=== PATIENT | male | born 1945 | race American Indian/Alaskan Native ===

== ENCOUNTER → 2016-05-18 | Outpatient (CLI) | payer OTHER ==
[~2016-05-18] MED LIST: ASPI-435 PO; FOLI1TAB7 PO; GLC/500 PO; GUAI1TAB7 PO; LISI10TA PO; MAGN400T5 PO; MAGNTAB4 PO; OMEP20CA9 PO; SIMV80TA5 PO; SITA100T3 PO
[2016-05-18 16:51] LABS: BASO % 0.3 %; BASO ABS # 0.02 K/uL (0-0.2); COMPLETE YES; HEMATOCRIT 42.1 % (42-52); IG% 0.2 %; LYMPH % 22.1 %; LYMPH ABS # 1.41 K/uL (1.2-3.4); MEAN CELL VOLUME 85.7 fL (80-100); MEAN CORPUSCULAR HGB CONC 36.1 g/dl (32-36); MEAN PLATELET VOLUME 10.3 fL (7.4-10.4); MONO % 6.4 %; PLATELET COUNT 230 K/uL (130-400); RED BLOOD COUNT 4.91 M/uL (4.7-6.1); WHITE BLOOD COUNT 6.38 K/uL (4.8-10.8)
[2016-05-18 17:00] LABS: ALT/SGPT 36 U/L (12-78); AST/SGOT 27 U/L (15-37); BLOOD UREA NITROGEN 20 mg/dl (7-18); BUN/CREATININE RATIO 7.5 (10-20); CALCIUM 8.7 mg/dl (8.5-10.1); CARBON DIOXIDE 25 mmol/L (21-32); CHLORIDE 99 mmol/L (98-107); GLUCOSE 223 mg/dl (70-99); SODIUM 135 mmol/L (136-145)
[2016-05-18 17:04] LABS: ALB/GLOB RATIO 0.8 (0.9-2); ALKALINE PHOSPHATASE 147 U/L (45-117); FERRITIN 234.3 ng/ml (8.0-388.0)
[2016-05-21 15:36] LABS: AFP TUMOR MARKER SERUM 2.6 NG/ML (<6.1)
--- NOTE | 2016-05-28 11:45 | CODING QUERY MEDICAL NECESSITY ---
CQSUPPORTING DIAGNOSIS NEEDED A supporting diagnosis is required for the test/procedure performed on this patient in order for us to be reimbursed by the patient's insurance. Please provide a supporting diagnosis for the following test/procedure listed below next to the test name along with your signature. *If there is no additional diagnosis for this patient that would support the following test/procedure please document that below next to the test/procedure. Test(s)/Procedure(s) that require a supporting diagnosis: DOS 05/18/16 VITAMIN B12 AL-FETOPROTEIN TEST Provider Signature: Date: Thank you Jena [facility] Once completed, please kindly fax back to [phone] For questions please call [phone]
== END | disposition home or self-care (01) ==
LOC: C.LABPBG 15:02
PROVIDERS: ATTEND Internal Medicine Hematology & Oncology
DX: D63.1 Anemia in chronic kidney disease (principal); D64.89 Other specified anemias; D70.9 Neutropenia, unspecified; N18.3 Chronic kidney disease, stage 3 (moderate); F10.99 Alcohol use, unspecified with unspecified alcohol-induced disorder; D51.8 Other vitamin B12 deficiency anemias

== ENCOUNTER → 2016-05-25 | Outpatient (CLI) | payer OTHER ==
[2016-05-25 13:41] LABS: URINE APPEARANCE CLEAR (CLEAR); URINE BILIRUBIN NEG (NEG); URINE COLOR YELLOW; URINE NITRITE NEG (NEG); URINE SPECIFIC GRAVITY 1.019 (1.000-1.030); UROBILINOGEN NEG (NEG)
[2016-05-25 13:53] LABS: MANUAL MICROSCOPIC REQUIRED? NO; REVIEW REQ? NO
== END | disposition home or self-care (01) ==
LOC: C.LABSPEC 09:51
PROVIDERS: ATTEND Physician Assistant Medical
DX: N40.1 Benign prostatic hyperplasia with lower urinary tract symptoms (principal)

== ENCOUNTER → 2016-06-11 | Outpatient (CLI) | payer OTHER ==
--- NOTE | 2016-06-11 11:48 | DIAGNOSTIC IMAGING REPORT ---
MRI right knee RIGHT LOWER EXT JOINT WITHOUT CLINICAL HISTORY: M17.10 Unilateral primary osteoarthritis, unspecified kneeM25.56 Right pain. X-rays. TECHNIQUE: MRI multi axial acquisition COMPARISON STUDY: None FINDINGS: Considerable degenerative change medial joint compartment. Thinning and considerable articular surface loss of the articular services the medial compartment. Osteochondral defect measuring 7 mm with associated cortical bone loss medial tibial plateau. Moderate substance degenerative change of the medial meniscus. Lateral joint compartment shows minimal degenerative change. Lateral meniscus appears to be intact. Collateral ligaments structures are intact as well. There is mild edema of the medial collateral ligament. Considerable degenerative change patellofemoral joint. Considerable thinning of the articular services with moderate irregularity of the residual articular services. Patellar retinaculum are intact. IMPRESSION: 1. Significant degenerative change medial joint compartment with loss of articular services, 7 mm osteochondral defect the tibial plateau, deterioration of the medial meniscus, and a moderate sprain and reactive edema of the medial collateral ligament. 2. Considerable degenerative change patellofemoral joint. 3. Minimal degenerative changes lateral joint compartment. Electronically signed by: Erickson Zavala M.D. 06/11/2016 11:47 AM Dictated Date/Time: 06/11/2016 11:40 AM
== END | disposition home or self-care (01) ==
LOC: C.MRI 09:42
PROVIDERS: ATTEND Neuromusculoskeletal Medicine & OMM
DX: M17.10 Unilateral primary osteoarthritis, unspecified knee (principal); M25.561 Pain in right knee

== ENCOUNTER → 2016-06-20 | Outpatient (CLI) | payer OTHER | LOC: C.LABPBG 08:40 | PROVIDERS: ATTEND Physician Assistant Medical | DX: N40.1 Benign prostatic hyperplasia with lower urinary tract symptoms (principal) ==

== ENCOUNTER → 2017-04-23 | Outpatient (CLI) | payer OTHER ==
[~2017-04-23] MED LIST changes: -FOLI1TAB7 PO; +FOLI1TAB8 PO
[2017-04-23 13:25] LABS: BASO % 0.3 %; BASO ABS # 0.02 K/uL (0-0.2); EOS % 1.8 %; EOS ABS # 0.13 K/uL (0-0.5); HEMATOCRIT 44.2 % (42-52); HEMOGLOBIN 15.3 g/dL (14.0-18.0); IG# 0.02 K/uL (0.00-0.02); LYMPH % 17.9 %; LYMPH ABS # 1.28 K/uL (1.2-3.4); MEAN CELL VOLUME 93.4 fL (80-100); MEAN CORPUSCULAR HEMOGLOBIN 32.3 pg (25-34); MEAN CORPUSCULAR HGB CONC 34.6 g/dl (32-36); MEAN PLATELET VOLUME 9.6 fL (7.4-10.4); MONO % 7.7 %; MONO ABS # 0.55 K/uL (0.11-0.59); NEUT ABS # 5.15 K/uL (1.4-6.5); PLATELET COUNT 230 K/uL (130-400); RED CELL DISTRIBUTION WIDTH CV 12.3 % (11.5-14.5); RED CELL DISTRIBUTION WIDTH SD 41.8 fL (36.4-46.3); WHITE BLOOD COUNT 7.15 K/uL (4.8-10.8)
[2017-04-23 14:09] LABS: ALBUMIN 3.2 gm/dl (3.4-5.0); ALT/SGPT 29 U/L (12-78); AST/SGOT 33 U/L (15-37); BLOOD UREA NITROGEN 13 mg/dl (7-18); CALCIUM 9.1 mg/dl (8.5-10.1); CARBON DIOXIDE 24 mmol/L (21-32); CHOLESTEROL 199 mg/dl (0-200); CREATININE 2.16 mg/dl (0.60-1.40); GLUCOSE 151 mg/dl (70-99); SODIUM 133 mmol/L (136-145)
[2017-04-23 14:12] LABS: HEMOGLOBIN A1C 6.4 % (4.5-5.6)
[2017-04-23 14:27] LABS: ALKALINE PHOSPHATASE 120 U/L (45-117); LDL CHOLESTEROL CALCULATED 98 mg/dl
== END | disposition home or self-care (01) ==
LOC: C.LABPBG 09:49
PROVIDERS: ATTEND Family Medicine
DX: I12.9 Hypertensive chronic kidney disease with stage 1 through stage 4 chronic kidney disease, or unspecified chronic kidney disease (principal); E78.5 Hyperlipidemia, unspecified; E11.9 Type 2 diabetes mellitus without complications; F32.9 Major depressive disorder, single episode, unspecified; E03.9 Hypothyroidism, unspecified; N18.3 Chronic kidney disease, stage 3 (moderate); K21.9 Gastro-esophageal reflux disease without esophagitis

== ENCOUNTER → 2017-06-17 | Outpatient (CLI) | payer OTHER ==
[2017-06-17 13:13] LABS: BASO % 0.4 %; BASO ABS # 0.03 K/uL (0-0.2); EOS % 1.5 %; HEMATOCRIT 45.2 % (42-52); HEMOGLOBIN 15.7 g/dL (14.0-18.0); IG# 0.01 K/uL (0.00-0.02); LYMPH % 15.8 %; LYMPH ABS # 1.06 K/uL (1.2-3.4); MEAN CELL VOLUME 94.4 fL (80-100); MEAN CORPUSCULAR HEMOGLOBIN 32.8 pg (25-34); MEAN CORPUSCULAR HGB CONC 34.7 g/dl (32-36); MEAN PLATELET VOLUME 9.7 fL (7.4-10.4); MONO % 7.6 %; MONO ABS # 0.51 K/uL (0.11-0.59); NEUT % 74.6 %; NEUT ABS # 5.01 K/uL (1.4-6.5); PLATELET COUNT 229 K/uL (130-400); RED CELL DISTRIBUTION WIDTH CV 12.6 % (11.5-14.5); WHITE BLOOD COUNT 6.72 K/uL (4.8-10.8)
[2017-06-17 13:43] LABS: ALT/SGPT 31 U/L (12-78); AST/SGOT 41 U/L (15-37); BLOOD UREA NITROGEN 7 mg/dl (7-18); CALCIUM 8.6 mg/dl (8.5-10.1); CARBON DIOXIDE 24 mmol/L (21-32); CREATININE 2.18 mg/dl (0.60-1.40); GLUCOSE,FASTING 151 mg/dl (70-99); POTASSIUM 4.4 mmol/L (3.5-5.1); SODIUM 133 mmol/L (136-145); URIC ACID 7.4 mg/dl (2.6-7.2)
[2017-06-17 13:51] LABS: ALKALINE PHOSPHATASE 141 U/L (45-117); CHOLESTEROL 184 mg/dl (0-200); LDL CHOLESTEROL CALCULATED 88 mg/dl; TOTAL PROTEIN 7.8 gm/dl (6.4-8.2)
[2017-06-17 14:07] LABS: HEMOGLOBIN A1C 6.8 % (4.5-5.6)
[2017-06-17 14:43] LABS: CREATININE RANDOM URINE 91.7 mg/dl
== END | disposition home or self-care (01) ==
LOC: C.LABPBG 08:51
PROVIDERS: ATTEND Internal Medicine Nephrology
DX: K70.30 Alcoholic cirrhosis of liver without ascites (principal); N18.3 Chronic kidney disease, stage 3 (moderate); E11.22 Type 2 diabetes mellitus with diabetic chronic kidney disease; I12.9 Hypertensive chronic kidney disease with stage 1 through stage 4 chronic kidney disease, or unspecified chronic kidney disease; D64.9 Anemia, unspecified; E78.5 Hyperlipidemia, unspecified; E55.9 Vitamin D deficiency, unspecified; E03.9 Hypothyroidism, unspecified

== ENCOUNTER 2022-05-02 10:39 | Observation (INO) ==
[2022-05-02] MEDS ORDERED: LIDOCAINE VISCOUS 2% 15 ML UDC MT ONE (11:13)
[2022-05-02] MEDS ORDERED: methylPREDNISolone 125 MG/2 ML VIAL IV STA (11:13)
[2022-05-02] MEDS ORDERED: SODIUM CHLORIDE 0.9% 1000ML 500 ML IV ONE (11:13)
[2022-05-02] MEDS ORDERED: ACETAMINOPHEN 1,000 MG/100 ML VIAL IV STA (11:17)
--- NOTE | 2022-05-02 11:18 | Emergency Department Note ---
Impression & Plan Bullous pemphigoid, Stage 4 chronic kidney disease due to benign hypertension, Acute pain of mouth, Acute hyponatremia ED Provider Note Provider: Matt Noguera MD DATE OF SERVICE: 05/02/2022 CHIEF COMPLAINT: Cough, rash HISTORY OF PRESENT ILLNESS: Patient is a 77-year-old gentleman history of hypertension, CAD, CAD/CHF, and post pemphigoid recent rash following with dermatology presenting here today referred by primary care's office after discussing with him onset of some blood-tinged mucus and fatigue today. Recently restarted prednisone this morning previously completed course of this and doxycycline. No fevers reported. Reports that he has been unable to swallow the prednisone tablet due to blister in his mouth. Did have scrapings with zipper setter chainstitch and diagnosed with bullous pemphigoid. Prescription for prednisone yesterday given but just try to take it today along with a new prescription for methotrexate. Has been having over the past 1 to 2 weeks some ulcerations in the mouth. Has tried Magic mouthwash but does not like the taste and not helping. Limited food and liquid intake due to this oral irritation. Denies shortness of breath. Some blood-tinged quality to sputum at times mainly when he is spitting from his mouth. Has been weak and unsteady at times at home. Diffuse body bullae as well as broken bullae/blisters have been continuing. Has been seen at the [facility] several times by their report as well as by primary care and zipper setter chainstitch. Denies any eye or penile irritation. Denies any significant GI upset. Patient states he is able to swallow and speak but it hurts some. PAST MEDICAL HISTORY: As noted above MEDICATIONS: Reviewed home medications SOCIAL HISTORY: lives at home, non-smoker PHYSICAL EXAM: GENERAL: alert and oriented in no acute distress on stretcher fatigued appearing however Head: normocephalic and atraumatic EYES: No injection, discharge or icterus. PERRL, EOMI. NECK: Trachea midline. Supple. ENT: Mucous membranes pink with some slight ulceration on the posterior oropharynx as well as a approximately 8 mm blood-filled bullae/blister under the right tongue. No tongue elevation. LUNGS: Airway patent. No retractions. Breath sounds clear with good air entry bilaterally. HEART: Regular rate and rhythm. No chest wall tenderness ABDOMEN: Soft and non-tender, without guarding or rebound. SKIN: Patient with some diffuse areas of bullae multiple broken bullae with healing blisters on most the extent of his body. Not a lot of confluent erythema around these or purulence. EXTREMITIES: Scattered bullae and broken blisters/bullae on the lower legs 1+ bilateral lower edema. NEUROLOGICAL: No focal deficits. No aphasia. No facial droop or slurred speech. Patient's laboratory studies and imaging reviewed. Differential includes pneumonia, pulmonary embolism, BRICK OR BLOCK [employer]KER, throat infection, mass, dehydration, hyponatremia, acute renal injury, cellulitis, histamine reaction, SJS/TN, bullous pemphigoid, among others considered. IMPRESSION/MEDICAL DECISION MAKING: Patient seen with outside facility and zipper setter chainstitch as well as a PCP locally and reviewed the available PCP notes. Recent diagnosis of bullous pemphigoid of the last 1 to 2 months. Was on steroid and doxycycline. Now given prescription for methotrexate as well as steroid yesterday went to take today and too painful to swallow the medications. Limit decreased oral intake reported as well. Denies significant shortness of breath or chest discomfort. Lower suspicion for primary pulmonary etiology here. Diffuse rash unfortunately seems consistent with bullous pemphigoid. Not clearly diffusely infected at this point. Given some IV steroids as well as IV fluids initially basic labs obtained. Did receive some IV fluid as well as IV Tylenol and some oral lidocaine. This did help with his symptoms. Blood work does show baseline CKD but some new hyponatremia of 129 like related to his decreased intake. Elevated CRP. No significant leukocytosis. Anemia of 10.4 noted. Negative COVID. Patient somewhat improved on reevaluation. Discussed with allergy and immunology on- call as well as dermatology. Dermatology recommends slow steroid taper and starting his methotrexate. Given his decreased intake and already hyponatremia due to his oral discomfort, discussed further care here at the hospital. DIAGNOSIS: Bullous pemphigoid, oral pain, hyponatremia, decreased oral intake DISPOSITION: Hospitalist will evaluate Patient was agreeable with this plan. Past Med/Surg History Medical History Acute kidney injury Alcoholic cirrhosis Anemia Arthritis Ascites due to alcoholic cirrhosis Boil of groin BPH (benign prostatic hyperplasia) CAD (coronary artery disease) Cardiomyopathy CHF (congestive heart failure) Chronic rhinitis Depression DM (diabetes mellitus) GERD without esophagitis Hearing difficulty of both ears History of GI bleed HTN (hypertension) Hyperlipidemia Hypothyroidism (acquired) Insomnia Low magnesium levels Mild cognitive impairment Neuropathy Peripheral neuropathy Stage 4 chronic kidney disease due to benign hypertension Testicular nodule Vitamin D deficiency Surgical History H/O hand surgery History of back surgery S/P cataract surgery S/P cholecystectomy S/P shoulder surgery Family History Mother Ovarian cancer Denies family history of Prostate cancer Myocardial infarction Breast cancer Colorectal cancer Social History Smoking Status: Former smoker Tobacco Type: Cigarettes Second Hand Exposure: No; Hx Alcohol Use: Yes Alcohol type: hard liquor Alcohol Intake Frequency: 4 or More x per/Week Hx Substance Use: No Preferred Language: Hungarian Communication Ability: Effective Visual Impairment: No Limitations Hearing Ability: Use of Hearing Aid Tier Over Required: No Beliefs That Will Affect Care: None marital status: Current Living Situation: Spouse current occupational status: retired Feels Safe at Home: Yes Childhood Exposure to Second-Hand Smoke: Yes Diet Comment: barely eats as per caffeine: No during the past year weight has: remained stable Dental Care, Regularly: No Physical Activity Frequency: Does not Exercise Seatbelt Use: always Sunscreen Use: No Allergies Allergies Allergy/AdvReac Type Severity Reaction Status Date / Time No Known Allergies Allergy Unverified 05/02/22 15:41 Home Meds Home Medications Medication Instructions Recorded Confirmed aspirin 81 mg tablet,delayed 81 mg PO DAILY 04/28/21 05/02/22 release (Meseret Low Dose Aspirin) cyclobenzaprine 10 mg tablet 10 mg PO HS PRN muscle spasm 05/31/21 05/02/22 magnesium oxide 420 mg tablet 420 mg PO DAILY 05/31/21 05/02/22 metoprolol tartrate 25 mg tablet 25 mg PO DAILY 03/21/22 05/02/22 simvastatin 10 mg tablet 5 mg PO QPM 03/21/22 05/02/22 folic acid 1 mg tablet 1 mg PO DAILY 05/02/22 05/02/22 mecobalamin (vitamin B12) 1,000 0 mcg PO DAILY 02/22/23 02/22/23 mcg chewable tablet (B12 Active) methotrexate sodium 2.5 mg tablet 12.5 mg PO WK 05/02/22 05/02/22 Previous Rx's Medication Instructions Recorded blood sugar diagnostic (OneTouch #10 ea 08/11/18 Ultra Blue Test Strip) blood-glucose meter (OneTouch #1 ea 08/11/18 Ultra2 Meter kit) finasteride 5 mg tablet 5 mg PO DAILY #90 tabs 08/11/18 lancets (OneTouch UltraSoft #50 ea 08/11/18 Lancets) mirtazapine 15 mg tablet 15 mg PO DAILY #30 tabs 08/11/18 tamsulosin 0.4 mg capsule 0.4 mg PO DAILY #30 caps 12/29/20 psyllium husk 0.52 gram capsule 0.52 g PO DAILY #30 caps 06/02/21 (Daily Fiber) levothyroxine 75 mcg tablet 75 mcg PO DAILY #30 tabs 07/31/21 triamcinolone acetonide 0.1 % 1 applic topical DAILY PRN itching 11/09/21 topical cream #80 grams guaifenesin 400 mg tablet 400 mg PO BID PRN cough #30 tabs 11/10/21 betamethasone dipropionate 0.05 % 1 applic topical BID PRN skin 11/21/21 topical cream irritation #45 grams linagliptin 5 mg tablet (Tradjenta) 5 mg PO DAILY #90 tabs 11/21/21 spironolactone 25 mg tablet 25 mg PO DAILY #90 tabs 12/05/21 levocetirizine 5 mg tablet 5 mg PO DAILY #90 tabs 02/09/22 nystatin 100,000 unit/gram topical 1 applic topical BID #30 grams 03/21/22 ointment potassium chloride 20 mEq 20 meq PO DAILY #30 tabs 03/22/22 tablet,extended release furosemide 20 mg tablet 20 mg PO DAILY #90 tabs 04/18/22 calamine 3 %-zinc oxide 3 %-gauze #2 ea 04/20/22 bandage 4" X 10 yard (Unna Boot Zinc-Calamine) pantoprazole 40 mg tablet,delayed 40 mg PO BID #180 tabs 05/01/22 release Results & Data (ED) Vital Signs Vital Signs - 24 hr 05/02/22 10:42 05/02/22 12:41 05/02/22 14:30 Temperature 36.6 C Temperature Source Temporal Artery Scan Pulse Rate 122 H Pulse Rate [Finger] 103 H 97 H Respiratory Rate 18 18 18 Respiratory Effort / Characteristics Non-Labored Spontaneous Non-Labored Respiratory Depth Normal Normal Respiratory Pattern Regular Blood Pressure 105/63 Blood Pressure [Left Arm] 109/58 L 103/56 L Blood Pressure Mean 77 Blood Pressure Mean [Left Arm] 75 71 Blood Pressure Position Sitting Blood Pressure Position [Left Arm] Lying Pulse Oximetry 99 98 98 Oxygen Delivery Method Room Air Room Air Room Air Sepsis Recent Fever Within 48 Hours No Sepsis New/Unexplained Change in Mental Status N/A Sepsis Action Taken by Nursing No Action Required 05/02/22 17:50 05/02/22 17:51 Temperature Temperature Source Pulse Rate 94 H Pulse Rate [Finger] 94 H Respiratory Rate 18 18 Respiratory Effort / Characteristics Non-Labored Respiratory Depth Normal Respiratory Pattern Blood Pressure 105/59 L Blood Pressure [Left Arm] 105/59 L Blood Pressure Mean Blood Pressure Mean [Left Arm] 74 Blood Pressure Position Blood Pressure Position [Left Arm] Pulse Oximetry 96 96 Oxygen Delivery Method Room Air Room Air Sepsis Recent Fever Within 48 Hours Sepsis New/Unexplained Change in Mental Status Sepsis Action Taken by Nursing Laboratory Data 05/02/22 11:09 05/02/22 11:09 Lab Results 05/02/22 05/02/22 05/02/22 Range/Units 11:09 11:09 12:23 WBC 8.66 (4.8-10.8) K/ul RBC 3.29 L (4.70-6.10) M/uL Hgb 10.4 L (14.0-18.0) g/dl Hct 31.3 L (42.0-52.0) % MCV 95.1 (80.0-100.0) fL MCH 31.6 (25.0-34.0) pg MCHC 33.2 (32.0-36.0) g/dL RDW Std Deviation 43.1 (36.4-46.3) fL RDW Coeff of Otto 12.3 (11.5-14.5) % Plt Count 360 (130-400) K/uL MPV 9.0 L (9.4-12.4) fL Immature Gran % (Auto) 1.0 % Neut % (Auto) 81.9 % Lymph % (Auto) 6.4 % [place] % (Auto) 7.9 % Eos % (Auto) 2.5 % Baso % (Auto) 0.3 % Neut # (Auto) 7.09 H (1.40-6.50) K/uL Lymph # (Auto) 0.55 L (1.2-3.4) K/uL [place] # (Auto) 0.68 H (0.11-0.59) K/uL Eos # (Auto) 0.22 (0-0.50) K/uL Baso # (Auto) 0.03 (0-0.2) K/uL Immature Gran # (Auto) 0.09 (0.01-0.20) K/uL Sodium 129 L (136-145) mmol/L Potassium 3.8 (3.5-5.1) mmol/L Chloride 97 L (98-107) mmol/L Carbon Dioxide 22 (21-32) mmol/L Anion Gap 10 (3-11) BUN 12 (6-23) mg/dl Creatinine 2.05 H (0.6-1.4) mg/dl Est Cr Clr Drug Dosing Not Reportable Est GFR ( Amer) 35.2 ml/min Est GFR (Non-Af Amer) 30.3 ml/min BUN/Creatinine Ratio 5.9 L (10-20) Glucose 241 H (70-99(Fasting)) mg/dl Calcium 8.0 L (8.5-10.1) mg/dl Magnesium 1.7 (1.7-2.4) mg/dl Total Bilirubin 1.1 H (0.2-1.0) mg/dl AST 13 (13-39) U/L ALT 11 (7-52) U/L Alkaline Phosphatase 95 (34-104) U/L C-Reactive Protein 8.85 H (0-0.5) mg/dl Total Protein 5.8 L (6.0-8.3) gm/dl Albumin 2.3 L (3.4-5.0) gm/dl Globulin 3.5 (2.5-4.0) gm/dl Albumin/Globulin Ratio 0.7 L (0.9-2) SARS-CoV-2, RNA, NAAT NEGATIVE (NEGATIVE) Administered Medications Discontinued Medications Sodium Chloride (Nss 1000ml) 500 mls @ 999 mls/hr IV .Q31M ONE Stop: 05/02/22 11:43 Last Infusion: 05/02/22 12:37 Dose: 0 mls/hr Documented By: JOSE C Admin: 05/02/22 11:47 Dose: 999 mls/hr Documented By: SOLOMON Acetaminophen (Ofirmev) 1,000 mg in 100 mls @ 400 mls/hr IV NOW STA Stop: 05/02/22 11:31 Last Infusion: 05/02/22 12:37 Dose: 0 mls/hr Documented By: JOSE C Admin: 05/02/22 11:45 Dose: 400 mls/hr Documented By: SOLOMON Lidocaine HCl (Lidocaine Viscous 2% 15 Ml Udc) 15 ml MT NOW ONE Stop: 05/02/22 11:14 Last Admin: 05/02/22 11:46 Dose: 15 ml Documented By: SOLOMON Methylprednisolone (Methylprednisolone 125 Mg/2 Ml Vial) 125 mg IV NOW STA Stop: 05/02/22 11:14 Last Admin: 05/02/22 11:45 Dose: 125 mg Documented By: SOLOMON Imaging Data Radiologist's Impression: Chest X-Ray 05/02/22 11:35 XR chest 1V portable CLINICAL HISTORY: cough TECHNIQUE: Single frontal radiograph of the chest was obtained. Comparison: None available at the time of this dictation. FINDINGS: No lines and tubes are seen. The cardiomediastinal silhouette is normal. The lungs are clear. No evidence of pleural effusion or pneumothorax. IMPRESSION: No acute abnormalities and in particular no evidence of pneumonia. ACT 112: Negative or not required by law. Electronically signed by: Antoine Barraza M.D. 05/02/2022 12:04 PM Discharge Plan Visit Data Chief Complaint: Cough Stated Complaint: SPITTING UP BLOOD ED Provider: Matt Noguera Discharge Problem: Bullous pemphigoid, Stage 4 chronic kidney disease due to benign hypertension, Acute pain of mouth, Acute hyponatremia Patient Disposition: Admitted As Inpatient Discharge Instructions Interventions: ED Discharge Assessment Last Done: 05/02/22 17:51 Forms Stand Alone Forms: My [facility] Prescriptions Prescriptions: No Action finasteride 5 mg tablet 5 mg PO DAILY Qty: 90 3RF mirtazapine 15 mg tablet 15 mg PO DAILY Qty: 30 2RF (DME) OneTouch Ultra Blue Test Strip strip See Dose Instructions .ROUTE .MEDSUPPLY Qty: 10 0RF Dose Instruction: As directed Rx Instructions: As directed (DME) blood-glucose meter [WageWorksTouch Ultra2 Meter] kit See Dose Instructions .ROUTE .MEDSUPPLY Qty: 1 0RF Dose Instruction: As directed Rx Instructions: As directed (DME) lancets [OneTouch UltraSoft Lancets] misc See Dose Instructions .ROUTE .MEDSUPPLY Qty: 50 0RF Dose Instruction: As directed Rx Instructions: As directed psyllium husk [Daily Fiber] 0.52 gram capsule 0.52 g PO DAILY Qty: 30 0RF levothyroxine 75 mcg tablet 75 mcg PO DAILY Qty: 30 2RF triamcinolone acetonide 0.1 % cream 1 applic topical DAILY PRN (Reason: itching) Qty: 80 1RF guaifenesin 400 mg tablet 400 mg PO BID PRN (Reason: cough) Qty: 30 0RF Tradjenta 5 mg tablet 5 mg PO DAILY Qty: 90 1RF betamethasone dipropionate 0.05 % cream 1 applic topical BID PRN (Reason: skin irritation) Qty: 45 3RF levocetirizine 5 mg tablet 5 mg PO DAILY Qty: 90 1RF potassium chloride 20 mEq tablet extended release 20 meq PO DAILY Qty: 30 2RF furosemide 20 mg tablet 20 mg PO DAILY Qty: 90 1RF (DME) Unna Boot Zinc-Calamine 3 %-3 %- 4" X 10 yard bandage See Rx Instructions .Route Qty: 2 11RF Rx Instructions: As directed pantoprazole 40 mg tablet,delayed release (DR/EC) 40 mg PO BID Qty: 180 1RF tamsulosin 0.4 mg capsule 0.4 mg PO DAILY Qty: 30 2RF cyclobenzaprine 10 mg tablet 10 mg PO HS PRN (Reason: muscle spasm) magnesium oxide 420 mg tablet 420 mg PO DAILY metoprolol tartrate 25 mg tablet 25 mg PO DAILY simvastatin 10 mg tablet 5 mg PO QPM nystatin 100,000 unit/gram ointment 1 applic topical BID Qty: 30 2RF aspirin [Meseret Low Dose Aspirin] 81 mg tablet,delayed release (DR/EC) 81 mg PO DAILY spironolactone 25 mg tablet 25 mg PO DAILY Qty: 90 2RF methotrexate sodium 2.5 mg tablet 12.5 mg PO WK Rx Instructions: Not yet started as of 05/02/2021 folic acid 1 mg tablet 1 mg PO DAILY mecobalamin (vitamin B12) [B12 Active] 1,000 mcg Tablet,Chewable 0 mcg PO DAILY Referrals Referrals: Crystal Camejo DO [Primary Care Provider] -
[2022-05-02 11:38] LABS: Basophils # (auto) 0.03 K/uL (0-0.2); Basophils % (auto) 0.3 %; Eosinophils # (auto) 0.22 K/uL (0-0.50); Eosinophils % (auto) 2.5 %; Hematocrit (blood only) 31.3 % (42.0-52.0); Hemoglobin 10.4 g/dl (14.0-18.0); Immature Granulocytes # (auto) 0.09 K/uL (0.01-0.20); Lymphocytes # (auto) 0.55 K/uL (1.2-3.4); Lymphocytes % (auto) 6.4 %; Mean Corpuscular Hemoglobin 31.6 pg (25.0-34.0); Mean Corpuscular Hgb Conc 33.2 g/dL (32.0-36.0); Mean Corpuscular Volume 95.1 fL (80.0-100.0); Monocytes # (auto) 0.68 K/uL (0.11-0.59); Monocytes % (auto) 7.9 %; Neutrophils # (auto) 7.09 K/uL (1.40-6.50); Neutrophils % (auto) 81.9 %; Platelet Count 360 K/uL (130-400); RDW Coefficient of Variation 12.3 % (11.5-14.5); RDW Standard Deviation 43.1 fL (36.4-46.3); Red Blood Count 3.29 M/uL (4.70-6.10); White Blood Count 8.66 K/ul (4.8-10.8)
[2022-05-02 11:54] LABS: Alanine Aminotransferase 11 U/L (7-52); Albumin Globulin Ratio 0.7 (0.9-2); Albumin Level 2.3 gm/dl (3.4-5.0); Alkaline Phosphatase 95 U/L (34-104); Anion Gap 10 (3-11); Aspartate Aminotransferase 13 U/L (13-39); BUN Creatinine Ratio 5.9 (10-20); Bilirubin,Total 1.1 mg/dl (0.2-1.0); Blood Urea Nitrogen 12 mg/dl (6-23); C Reactive Protein 8.85 mg/dl (0-0.5); Carbon Dioxide 22 mmol/L (21-32); Chloride 97 mmol/L (98-107); Est GFR (African American) 35.2 ml/min; Est GFR (Non-African American) 30.3 ml/min; Globulin 3.5 gm/dl (2.5-4.0); Glucose 241 mg/dl (70-99(Fasting)); Magnesium 1.7 mg/dl (1.7-2.4); Potassium 3.8 mmol/L (3.5-5.1); Sodium 129 mmol/L (136-145); Total Protein 5.8 gm/dl (6.0-8.3)
--- NOTE | 2022-05-02 12:05 | XRay Report ---
XR chest 1V portable CLINICAL HISTORY: cough TECHNIQUE: Single frontal radiograph of the chest was obtained. Comparison: None available at the time of this dictation. FINDINGS: No lines and tubes are seen. The cardiomediastinal silhouette is normal. The lungs are clear. No evid ence of pleural effusion or pneumothorax. IMPRESSION: No acute abnormalities and in particular no evidence of pneumonia. ACT 112: Negative or not required by law. Electronically signed by: Antoine Barraza M.D. 05/02/2022 12:04 PM
--- NOTE | 2022-05-02 15:01 | History & Physical Report ---
Date of Service May 02, 2022 Assessment & Plan (1) Bullous pemphigoid: Plan: Admission due to poor oral intake with blisters in his mouth and corresponding hyponatremia Solu-medrol 125mg IV given in the ER. Continue this at 60mg IV daily. Switch to PO prednisone when able to take better oral intake. He has had response to prior steroid course although may not have been at high enough dose for long enough. Start outpatient prescribed methotrexate @ 12.5mg PO which he was due to start today. (2) Acute hyponatremia: Plan: Suspect due to poor oral intake + loss from blisters + furosemide use Normal saline @ 80ml/hr overnight x 2L Repeat BMP in AM (3) Oropharyngeal dysphagia: Plan: SLT consult Consider GI consult if not resolving with IV steroids (4) BPH (benign prostatic hyperplasia): Plan: Continue finasteride and tamsulosin (5) GERD without esophagitis: Plan: Continue pantoprazole (6) Hypothyroidism (acquired): Plan: TSH 0.941 in July 2021 Continue levothyroxine 75 mcg PO daily (7) DM (diabetes mellitus): Plan: HbA1C 6.1 in September 2021. Repeat with AM labs. Gi8ven association with bollous pemphigoid consider discontinuation of linagliptin Consult pharmacy for glycemic control in setting of steroid use. (8) Anemia: Plan: At baseline. No inpatient workup required. (9) Peripheral neuropathy: Plan: Continue gabapentin (10) Alcoholic cirrhosis: Plan: Monitor for worsening fluid status with IV fluids as above Due to hyponatremia with dry mucus membranes will currently hold diuretics Plan VTE Prophylaxis - deferred to avoid further SQ injections Diet - T2DM Disposition - admit to med/surg Admission and Anticipated Discharge Date Admission Date: May 02, 2022 History of Present Illness Chief Complaint: Blisters, difficulty eating Primary Care Provider: Crystal Camejo DO Edmaya Rogers is a 77 year old male who presents to the ER due to worsening blister lesions after recently discontinuing second prednisone course. Due to blisters in his mouth he is having problems swallowing food. No problems with food getting stuck but just painful in his mouth. He was recently biopsy confirmed diagnosed with bullous pemphigoid and his outside therapy teacher had planned to start another prednisone course and methotrexate today but due to the difficulty swallowing decided to come to the ER. Initial symptoms began March 21 with an itch and b/l lower extremity swelling - concerned for b/l cellulitis by PCP and started on Keflex. Seen in [facility] with diffuse blistering rash on Mar 29 - noted rash started 3 weeks prior to this and started on hands although patient thinks it started on his b/l lower extremities with me today. He was diagnosed with a non-specific bullous eruption rash and discharged on doxycycline and prednisone on advice of dermatology (Dr William). He reports improvement on this steroid course but lesions never fully healed. Prednisone course 60mg 2days, tapering by 10mg ever 2 days. He did develop some hemoptysis which has been stable since CT chest performed by PCP showing a 1cm nodule in the left upper lobe - recommended PET/CT vs. [address] follow up. He reports the hemoptysis has continued but is no worse. He was follow up by his PCP on Apr 13 and treated with second steroid taper which finished last week. Prednisone 40mg 3 days, 20mg 3 days then 10mg 3 days. Again he reported some improvement but worse since stopping. He was followed up by dermatology and biopsy taken on Apr 16. This recently confirmed bullous pemphigoid and he just picked up new prednisone taper and methotrexate treatment today but is yet to take it. In the ER he was given 125mg Solu-Medrol IV and already feels some improvement when seen. Due to his difficulty swallowing he was referred to medicine for admission and ongoing management of bullous pemphigoid. Allergies Allergy/AdvReac Type Severity Reaction Status Date / Time No Known Allergies Allergy Unverified 05/02/22 15:41 Home Medications Medication Instructions Recorded Confirmed Type blood sugar diagnostic (BashaTouch #10 ea 08/11/18 04/13/22 Rx Ultra Blue Test Strip) blood-glucose meter (BashaTouch #1 ea 08/11/18 04/13/22 Rx Ultra2 Meter kit) finasteride 5 mg tablet 5 mg PO DAILY #90 tabs 08/11/18 05/02/22 Rx lancets (Graphenicsuch UltraSoft #50 ea 08/11/18 04/13/22 Rx Lancets) mirtazapine 15 mg tablet 15 mg PO DAILY #30 tabs 08/11/18 05/02/22 Rx tamsulosin 0.4 mg capsule 0.4 mg PO DAILY #30 caps 12/29/20 05/02/22 Rx aspirin 81 mg tablet,delayed 81 mg PO DAILY 04/28/21 05/02/22 History release (Meseret Low Dose Aspirin) cyclobenzaprine 10 mg tablet 10 mg PO HS PRN muscle spasm 05/31/21 05/02/22 History magnesium oxide 420 mg tablet 420 mg PO DAILY 05/31/21 05/02/22 History psyllium husk 0.52 gram capsule 0.52 g PO DAILY #30 caps 06/02/21 05/02/22 Rx (Daily Fiber) levothyroxine 75 mcg tablet 75 mcg PO DAILY #30 tabs 07/31/21 05/02/22 Rx triamcinolone acetonide 0.1 % 1 applic topical DAILY PRN itching 11/09/21 05/02/22 Rx topical cream #80 grams guaifenesin 400 mg tablet 400 mg PO BID PRN cough #30 tabs 11/10/21 05/02/22 Rx betamethasone dipropionate 0.05 % 1 applic topical BID PRN skin 11/21/21 05/02/22 Rx topical cream irritation #45 grams linagliptin 5 mg tablet (Tradjenta) 5 mg PO DAILY #90 tabs 11/21/21 05/02/22 Rx spironolactone 25 mg tablet 25 mg PO DAILY #90 tabs 12/05/21 05/02/22 Rx levocetirizine 5 mg tablet 5 mg PO DAILY #90 tabs 02/09/22 05/02/22 Rx metoprolol tartrate 25 mg tablet 25 mg PO DAILY 03/21/22 05/02/22 History nystatin 100,000 unit/gram topical 1 applic topical BID #30 grams 03/21/22 05/02/22 Rx ointment simvastatin 10 mg tablet 5 mg PO QPM 03/21/22 05/02/22 History potassium chloride 20 mEq 20 meq PO DAILY #30 tabs 03/22/22 05/02/22 Rx tablet,extended release furosemide 20 mg tablet 20 mg PO DAILY #90 tabs 04/18/22 05/02/22 Rx calamine 3 %-zinc oxide 3 %-gauze #2 ea 04/20/22 Rx bandage 4" X 10 yard (Unna Boot Zinc-Calamine) pantoprazole 40 mg tablet,delayed 40 mg PO BID #180 tabs 05/01/22 05/02/22 Rx release folic acid 1 mg tablet 1 mg PO DAILY 05/02/22 05/02/22 History mecobalamin (vitamin B12) 1,000 0 mcg PO DAILY 05/02/22 05/02/22 History mcg chewable tablet (B12 Active) methotrexate sodium 2.5 mg tablet 12.5 mg PO WK 05/02/22 05/02/22 History Past Med/Surg History Medical History Acute kidney injury Alcoholic cirrhosis Anemia Arthritis Ascites due to alcoholic cirrhosis Boil of groin BPH (benign prostatic hyperplasia) CAD (coronary artery disease) Cardiomyopathy CHF (congestive heart failure) Chronic rhinitis Depression DM (diabetes mellitus) GERD without esophagitis Hearing difficulty of both ears History of GI bleed HTN (hypertension) Hyperlipidemia Hypothyroidism (acquired) Insomnia Low magnesium levels Mild cognitive impairment Neuropathy Peripheral neuropathy Stage 4 chronic kidney disease due to benign hypertension Testicular nodule Vitamin D deficiency Surgical History H/O hand surgery History of back surgery S/P cataract surgery S/P cholecystectomy S/P shoulder surgery Family History Mother Ovarian cancer Denies family history of Prostate cancer Myocardial infarction Breast cancer Colorectal cancer Social History Smoking Status: Former smoker Tobacco Type: Cigarettes Cigarettes Per Day: Uncertain of amt.; Second Hand Exposure: No; Do You Dip or Chew Tobacco: No; Tobacco Cessation Education Requested by Patient: No Hx Alcohol Use: Yes Alcohol type: hard liquor Alcohol Intake Frequency: 4 or More x per/Week Hx Substance Use: No Preferred Language: Guatemalan Communication Ability: Effective Visual Impairment: No Limitations Hearing Ability: Use of Hearing Aid Deal Architect Required: No Beliefs That Will Affect Care: None marital status: Current Living Situation: Spouse current occupational status: retired Other Information That Helps Us Care for You: No Feels Safe at Home: Yes Safety Concerns: Feels Safe At This Time Childhood Exposure to Second-Hand Smoke: Yes Diet Comment: barely eats as per caffeine: No during the past year weight has: remained stable Dental Care, Regularly: No Physical Activity Frequency: Does not Exercise Seatbelt Use: always Sunscreen Use: No Assistive Devices: Glasses, Hearing Aid - Bilateral and Scooter/Electric Scooter Review of Systems Review of Systems: All systems reviewed & are unremarkable except as noted in HPI & below Physical Exam Constitutional: well developed; + not well nourished and no acute distress Eyes: PERRL, conjunctivae normal, anicteric sclerae ENMT: blisters on lateral mucus membranes and under tongue without thrush Respiratory: normal respiratory effort, lungs clear to auscultation Cardiovascular: Rate/Rhythm: regular rate and regular rhythm Extremities: + pedal edema (1+ b/l pitting edema) Gastrointestinal (Abdomen): normal bowel sounds, soft, nontender, no hepatosplenomegaly Skin: Extensive blistering of various stages all over all four extremities, trunk, abdomen and back. Mostly healing on arms with overlying sanguineous crust formation. No areas of cellulitis seen. Most active blisters on b/l LE Neurologic: moves all extremities and awake; not confused very hard of hearing Psychiatric: A+Ox3, euthymic affect Results & Data Results & Data ([facility]) Vital Signs (Past 12 Hours) Vital Signs Temp Pulse Pulse Resp BP BP Pulse Ox 05/02/22 14:30 97 H 18 103/56 L 98 05/02/22 12:41 103 H 18 109/58 L 98 05/02/22 10:42 36.6 C 122 H 18 105/63 99 O2 Del Method 05/02/22 14:30 Room Air 05/02/22 12:41 Room Air 05/02/22 10:42 Room Air Laboratory Results Abnormal lab results 05/02/22 05/02/22 05/02/22 Range/Units 11:09 11:09 18:37 RBC 3.29 L (4.70-6.10) M/uL Hgb 10.4 L (14.0-18.0) g/dl Hct 31.3 L (42.0-52.0) % MPV 9.0 L (9.4-12.4) fL Neut # (Auto) 7.09 H (1.40-6.50) K/uL Lymph # (Auto) 0.55 L (1.2-3.4) K/uL [place] # (Auto) 0.68 H (0.11-0.59) K/uL Sodium 129 L (136-145) mmol/L Chloride 97 L (98-107) mmol/L Creatinine 2.05 H (0.6-1.4) mg/dl BUN/Creatinine Ratio 5.9 L (10-20) Glucose 241 H (70-99(Fasting)) mg/dl POC Glucose 253 H (70-99) mg/dl Calcium 8.0 L (8.5-10.1) mg/dl Total Bilirubin 1.1 H (0.2-1.0) mg/dl C-Reactive Protein 8.85 H (0-0.5) mg/dl Total Protein 5.8 L (6.0-8.3) gm/dl Albumin 2.3 L (3.4-5.0) gm/dl Albumin/Globulin Ratio 0.7 L (0.9-2) 05/02/22 05/03/22 05/03/22 Range/Units 20:39 00:27 04:28 RBC (4.70-6.10) M/uL Hgb (14.0-18.0) g/dl Hct (42.0-52.0) % MPV (9.4-12.4) fL Neut # (Auto) (1.40-6.50) K/uL Lymph # (Auto) (1.2-3.4) K/uL [place] # (Auto) (0.11-0.59) K/uL Sodium (136-145) mmol/L Chloride (98-107) mmol/L Creatinine (0.6-1.4) mg/dl BUN/Creatinine Ratio (10-20) Glucose (70-99(Fasting)) mg/dl POC Glucose 292 H 287 H 148 H (70-99) mg/dl Calcium (8.5-10.1) mg/dl Total Bilirubin (0.2-1.0) mg/dl C-Reactive Protein (0-0.5) mg/dl Total Protein (6.0-8.3) gm/dl Albumin (3.4-5.0) gm/dl Albumin/Globulin Ratio (0.9-2) Diagnostic Findings XR chest 1V portable CLINICAL HISTORY: cough TECHNIQUE: Single frontal radiograph of the chest was obtained. Comparison: None available at the time of this dictation. FINDINGS: No lines and tubes are seen. The cardiomediastinal silhouette is normal. The lungs are clear. No evidence of pleural effusion or pneumothorax. IMPRESSION: No acute abnormalities and in particular no evidence of pneumonia. Medications Administered ER Medications Given: Normal Saline 500ml bolus Solu-medrol 125mg IV Lidocaine 15ml MT Acetaminophen 1000mg IV Code Status & VTE Plan Code Status Full VTE Prophylaxis Plan VTE Prophylaxis will be ordered: No PG Care Time/CCT Total # of Minutes Spent Total Time Spent with Patient: Total time spent is greater than 50% in coordination of care (as documented) at patient's floor/unit and/or counseling patient: Coding Level of Care Code 75755 INT INP/OBS CARE 375MIN Diagnoses Bullous pemphigoid L12.0 Acute hyponatremia E87.1 Oropharyngeal dysphagia R13.12 BPH (benign prostatic hyperplasia) N40.0 GERD without esophagitis K21.9 Hypothyroidism (acquired) E03.9 DM (diabetes mellitus) E11.9 Anemia D64.9 Peripheral neuropathy G62.9 Alcoholic cirrhosis K70.30
[2022-05-02] MEDS ORDERED: GLUCOSE 10 TAB/TUBE PO PRN (19:08)
[2022-05-02] MEDS ORDERED: NON-FORMULARY MEDICATION (Linagliptin [Tradjenta] 5 mg tablet) PO SCH (19:08)
[2022-05-02] MEDS ORDERED: PHARMACY GLYCEMIC MGMT CONSULT PRN (19:08)
[2022-05-02] MEDS ORDERED: CARBOHYDRATES FOR HYPOGLYCEMIA PO PRN (19:08)
[2022-05-02] MEDS ORDERED: INSULIN ASPART PER UNIT SC SCH ×3 (19:08→21:00)
[2022-05-02] MEDS ORDERED: DEXTROSE 50% 50 ML SYRINGE IV PRN (19:08)
[2022-05-02] MEDS ORDERED: GLUCOSE 40% GEL 15 GM TUBE PO PRN (19:08)
[2022-05-02] MEDS ORDERED: GLUCAGON FOR INJ 1 MG VIAL SQ PRN (19:08)
[2022-05-02] MEDS ORDERED: LANTUS PER UNIT CHARGE SQ ONE (21:00)
[2022-05-02] MEDS ORDERED: metHOTREXate sodium 2.5 MG TAB PO SCH (21:00)
[2022-05-02] MEDS: INSULIN ASPART PER UNIT SC SCH ×2 (21:18→21:27)
[2022-05-02] MEDS: SODIUM CHLORIDE 0.9% 1000ML 1,000 ML IV SCH (21:29)
[2022-05-02] MEDS: PANTOprazole 40 MG TAB PO SCH (21:29)
[2022-05-03] MEDS ORDERED: COUGH DROP (SUGAR FREE) LOZ 24 LOZ/1 BOX BUCCAL PRN (00:33)
[2022-05-03] MEDS ORDERED: CHLORASEPTIC 1.4% SOLN 180 ML BTL MT PRN (00:33)
[2022-05-03] MEDS: INSULIN ASPART PER UNIT SC SCH ×6 (00:48→20:54)
[2022-05-03] MEDS ORDERED: LEVOTHYROXINE SODIUM 75 MCG TABLET PO SCH (06:30)
[2022-05-03 07:28] LABS: Basophils # (auto) 0.01 K/uL (0-0.2); Basophils % (auto) 0.1 %; Hematocrit (blood only) 29.6 % (42.0-52.0); Hemoglobin 10.1 g/dl (14.0-18.0); Immature Granulocytes # (auto) 0.09 K/uL (0.01-0.20); Immature Granulocytes % (auto) 0.8 %; Lymphocytes # (auto) 0.83 K/uL (1.2-3.4); Lymphocytes % (auto) 7.7 %; Mean Corpuscular Hemoglobin 31.7 pg (25.0-34.0); Mean Corpuscular Hgb Conc 34.1 g/dL (32.0-36.0); Mean Corpuscular Volume 92.8 fL (80.0-100.0); Monocytes # (auto) 0.59 K/uL (0.11-0.59); Monocytes % (auto) 5.5 %; Neutrophils # (auto) 9.29 K/uL (1.40-6.50); Neutrophils % (auto) 85.9 %; Platelet Count 369 K/uL (130-400); Red Blood Count 3.19 M/uL (4.70-6.10); White Blood Count 10.81 K/ul (4.8-10.8)
[2022-05-03 07:35] LABS: Estimated Average Glucose 166 mg/dl; Hemoglobin A1C 7.4 % (4.5-5.6)
[2022-05-03 07:45] LABS: BUN Creatinine Ratio 7.6 (10-20); Calcium 8.1 mg/dl (8.5-10.1); Creatinine Clr Calc Pharmacy 33.4 ml/min; Est GFR (African American) 36.9 ml/min; Est GFR (Non-African American) 31.8 ml/min; Potassium 3.8 mmol/L (3.5-5.1)
[2022-05-03] MEDS ORDERED: CETIRIZINE HCL 10 MG TABLET PO SCH ×2 (09:00)
[2022-05-03] MEDS ORDERED: POTASSIUM CHLORIDE CRTAB 20 MEQ TABCR PO SCH (09:00)
[2022-05-03] MEDS ORDERED: TAMSULOSIN HCL 0.4 MG CAP PO SCH (09:00)
[2022-05-03] MEDS ORDERED: MAGNESIUM OXIDE 400 MG TAB PO SCH (09:00)
[2022-05-03] MEDS ORDERED: FINASTERIDE 5 MG TAB PO SCH (09:00)
[2022-05-03] MEDS ORDERED: INSULIN HUMAN NPH SC SCH (09:00)
[2022-05-03] MEDS ORDERED: FOLIC ACID 1 MG TAB PO SCH (09:00)
[2022-05-03] MEDS ORDERED: methylPREDNISolone 125 MG/2 ML VIAL IV SCH (09:00)
[2022-05-03] MEDS ORDERED: MIRTAZAPINE TAB 15 MG TAB PO SCH (09:00)
[2022-05-03] MEDS ORDERED: METOPROLOL SUCC 25MG EXT REL TAB PO SCH (09:00)
[2022-05-03] MEDS: SODIUM CHLORIDE 0.9% 1000ML 1,000 ML IV SCH (09:44)
[2022-05-03] MEDS: methylPREDNISolone 60 MG in SYRINGE 0 ML IV SCH (10:37)
[2022-05-03] MEDS: PANTOprazole 40 MG TAB PO SCH (10:43)
[2022-05-03] MEDS ORDERED: LORazepam 2 MG/1 ML VIAL IV PRN (11:05)
--- NOTE | 2022-05-03 11:20 | Hospitalist Progress Note ---
Date of Service May 03, 2022 Assessment & Plan (1) Bullous pemphigoid: Plan: Spoke directly to patient's sales account specialist, Dr William via the phone. 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 And she agreed with the IV Solumedrol and also the magic mouthwash. She stated when patient is able to take oral medication that Dapsone is a good choice. -Check G6PD to be sure patient is not a rapid metabolizer Admission due to poor oral intake with blisters in his mouth and corresponding hyponatremia Solu-medrol 125mg IV given in the ER. Continue this at 60mg IV daily. Switch to PO Dapsone (per Dermatology) at 50-150mg per day (if G6PD is normal) when able to take better oral intake. He has had response to prior steroid course although may not have been at high enough dose for long enough. Start outpatient prescribed methotrexate @ 12.5mg PO which he was due to start today, BUT patient has refused all his po medications and is spitting his saliva into tissues Awaiting wound evaluation (2) Acute hyponatremia: Plan: Suspect due to poor oral intake + loss from blisters + furosemide use Continue Normal saline @ 80ml/hr until able to adequately eat and hydrate Repeat labs tomorrow (3) Oropharyngeal dysphagia: Plan: SLT consulted Full liquid diet ordered Magic mouth wash ordered to swish and swallow if patient is able to swallow (4) BPH (benign prostatic hyperplasia): Plan: Outpatient finasteride and tamsulosin currently held due to patient not being able to swallow his po medications (5) GERD without esophagitis: Plan: Change pantoprazole to IV BID (6) Hypothyroidism (acquired): Plan: TSH 0.941 in July 2021 Levothyroxine 75 mcg PO daily currently on hold Per pharmacy hold x 3 days and then can give IV (7) DM (diabetes mellitus): Plan: HbA1C 6.1 in September 2021. Repeat with AM labs. Given association with bollous pemphigoid consider discontinuation of linagliptin Pharmacy for glycemic control in setting of steroid use. (8) Anemia: Plan: At baseline. No inpatient workup required.And no evidence of any active bleeding. Patient had a few episodes of hemoptysis (9) Peripheral neuropathy: Plan: Gabapentin on hold, since not taking po medications (10) Alcoholic cirrhosis: Plan: Complete Alcohol abstinence discussed with patient and his Monitor for worsening fluid status with IV fluids as above Due to hyponatremia with dry mucus membranes will currently hold diuretics Also held secondary to not taking po medications Per dermatology also recommended to not restart Furosemide (due to this medication may worsen Pemphigoid) Plan VTE Prophylaxis - deferred to avoid further SQ injections Early ambulation encouraged Diet - T2DM Disposition - admit to med/surg Admission and Anticipated Discharge Date Admission Date: May 02, 2022 Subjective Patient is awake in bed. He is complaining of mouth pain. He has bullous pemphigoid and has been following with Dr William. I spoke with Dr William today via the phone. Patient denies any ocular blake, vision changes or any lesions to his ocular area. 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 She recommended checking a G6PD test to be sure he is not a rapid metabolizer. She also stated sometimes you can use topical treatment orally with a triamcinolone ointment that is placed on a cotton swab and held on the area for 20 minutes. BUt that patient likey is not able to due this at this point secondary to the discomfort. Review of Systems Review of Systems: Patient denies any ocular complaints or changes to his vision, chest pain, SOB, dyspnea, cough bdominal pain or N/V. All ROS are negative unless stated + above. Physical Exam Constitutional: + ill appearing and cooperative; + uncomfortable IGIUGIG with bilateral hearing aids Neck: trachea midline, no thyromegaly Respiratory: normal respiratory effort, lungs clear to auscultation Cardiovascular: Rate/Rhythm: regular rate and regular rhythm Extremities: no calf tenderness and no edema Gastrointestinal (Abdomen): normal bowel sounds, soft, nontender, no hepatosplenomegaly Skin: Multiple pemphigoid lesions upper and lower extremities, some blistered areas and some excoriated and healing areas, no evidence of any cellulitis Psychiatric: Orientation: alert and oriented x 3 Eye Contact: good eye contact Results & Data Results & Data ([facility]) Vital Signs (Past 12 Hours) Vital Signs Temp Pulse Resp BP Pulse Ox O2 Del Method 05/03/22 07:29 36.3 C L 100 H 18 115/71 100 Room Air Laboratory Results Abnormal lab results 05/02/22 05/02/22 05/02/22 Range/Units 11:09 11:09 18:37 WBC (4.8-10.8) K/ul RBC 3.29 L (4.70-6.10) M/uL Hgb 10.4 L (14.0-18.0) g/dl Hct 31.3 L (42.0-52.0) % MPV 9.0 L (9.4-12.4) fL Neut # (Auto) 7.09 H (1.40-6.50) K/uL Lymph # (Auto) 0.55 L (1.2-3.4) K/uL [place]irt # (Auto) 0.68 H (0.11-0.59) K/uL Sodium 129 L (136-145) mmol/L Chloride 97 L (98-107) mmol/L Creatinine 2.05 H (0.6-1.4) mg/dl BUN/Creatinine Ratio 5.9 L (10-20) Glucose 241 H (70-99(Fasting)) mg/dl POC Glucose 253 H (70-99) mg/dl Hemoglobin A1c (4.5-5.6) % Calcium 8.0 L (8.5-10.1) mg/dl Total Bilirubin 1.1 H (0.2-1.0) mg/dl C-Reactive Protein 8.85 H (0-0.5) mg/dl Total Protein 5.8 L (6.0-8.3) gm/dl Albumin 2.3 L (3.4-5.0) gm/dl Albumin/Globulin Ratio 0.7 L (0.9-2) 05/02/22 05/03/22 05/03/22 Range/Units 20:39 00:27 04:28 WBC (4.8-10.8) K/ul RBC (4.70-6.10) M/uL Hgb (14.0-18.0) g/dl Hct (42.0-52.0) % MPV (9.4-12.4) fL Neut # (Auto) (1.40-6.50) K/uL Lymph # (Auto) (1.2-3.4) K/uL [place] # (Auto) (0.11-0.59) K/uL Sodium (136-145) mmol/L Chloride (98-107) mmol/L Creatinine (0.6-1.4) mg/dl BUN/Creatinine Ratio (10-20) Glucose (70-99(Fasting)) mg/dl POC Glucose 292 H 287 H 148 H (70-99) mg/dl Hemoglobin A1c (4.5-5.6) % Calcium (8.5-10.1) mg/dl Total Bilirubin (0.2-1.0) mg/dl C-Reactive Protein (0-0.5) mg/dl Total Protein (6.0-8.3) gm/dl Albumin (3.4-5.0) gm/dl Albumin/Globulin Ratio (0.9-2) 05/03/22 05/03/22 05/03/22 Range/Units 07:02 07:02 07:02 WBC 10.81 H (4.8-10.8) K/ul RBC 3.19 L (4.70-6.10) M/uL Hgb 10.1 L (14.0-18.0) g/dl Hct 29.6 L (42.0-52.0) % MPV 9.0 L (9.4-12.4) fL Neut # (Auto) 9.29 H (1.40-6.50) K/uL Lymph # (Auto) 0.83 L (1.2-3.4) K/uL [place] # (Auto) (0.11-0.59) K/uL Sodium 135 L (136-145) mmol/L Chloride (98-107) mmol/L Creatinine 1.97 H (0.6-1.4) mg/dl BUN/Creatinine Ratio 7.6 L (10-20) Glucose (70-99(Fasting)) mg/dl POC Glucose (70-99) mg/dl Hemoglobin A1c 7.4 H (4.5-5.6) % Calcium 8.1 L (8.5-10.1) mg/dl Total Bilirubin (0.2-1.0) mg/dl C-Reactive Protein (0-0.5) mg/dl Total Protein (6.0-8.3) gm/dl Albumin (3.4-5.0) gm/dl Albumin/Globulin Ratio (0.9-2) Diagnostic Findings Chest X-Ray 05/02/22 11:35 XR chest 1V portable CLINICAL HISTORY: cough TECHNIQUE: Single frontal radiograph of the chest was obtained. Comparison: None available at the time of this dictation. FINDINGS: No lines and tubes are seen. The cardiomediastinal silhouette is normal. The lungs are clear. No evidence of pleural effusion or pneumothorax. IMPRESSION: No acute abnormalities and in particular no evidence of pneumonia. ACT 112: Negative or not required by law. Electronically signed by: Antoine Barraza M.D. 05/02/2022 12:04 PM PG Care Time/CCT Total # of Minutes Spent Total Time Spent with Patient: Total time spent is greater than 50% in coordination of care (as documented) at patient's floor/unit and/or counseling patient: Coding Level of Care Code 96948 SUB INP/OBS CARE 3/50MIN Diagnoses Bullous pemphigoid L12.0 Acute hyponatremia E87.1 Oropharyngeal dysphagia R13.12 BPH (benign prostatic hyperplasia) N40.0 GERD without esophagitis K21.9 Hypothyroidism (acquired) E03.9 DM (diabetes mellitus) E11.9 Anemia D64.9 Peripheral neuropathy G62.9 Alcoholic cirrhosis K70.30
[2022-05-03] MEDS: PANTOprazole 40 MG in SYRINGE 0 ML IV SCH ×2 (11:24→20:47)
[2022-05-03] MEDS: FOLIC ACID 1 MG in SYRINGE 9.8 ML IV SCH (11:25)
--- NOTE | 2022-05-03 12:20 | Pharmacy Report ---
Pharmacy Glycemic Short Note 2 - Date of Service May 03, 2022 - Glycemic Short BSG Results (Last 24 hours): 05/02/22 05/02/22 05/03/22 18:37 20:39 00:27 Glucose POC Glucose 253 H 292 H 287 H 05/03/22 05/03/22 05/03/22 04:28 07:02 08:08 Glucose 91 POC Glucose 148 H 90 05/03/22 12:02 Glucose POC Glucose 89 OUTPATIENT ANTIDIABETIC REGIMEN: * Trajenta 5mg PO Daily * A1c 7.4% 05/03/22 ASSESSMENT: * 77 year old male admitted with Bullous pemphigoid, with blisters in his mouth and poor PO intake, on IV steroids. * Patient had Solu-Medrol 125mg in ER yesterday, resulting in blood sugar of 292mg/d - given Lantus 25 and CF/CR 20/7, euglycemic this morning. * Changed to NPH this morning as Solu-Medrol is only Q24H at this time. * Patient unable to eat/swallow at this time, did give NPH this morning with Solu-Medrol, but will hold until re-evaluated tomorrow, since patient is not eating. PLAN FOR INPATIENT GLYCEMIC CONTROL: * Hold outpatient oral diabetes medications * Basal insulin * NPH 25 units SQ today x1 with Solu-Medrol - further dosing tomorrow * Bolus insulin * NovoLog per scale ACHS or Q6hrs while NPO * Goal Range: Low 110 mg/dL - High 140 mg/dL * Correction Factor: 30 mg/dL/unit * Nutritional / Prandial insulin per carb ratio of 1 unit per 10 grams CHO consumed
[2022-05-03] MEDS: FIRST - Mouthwash BLM 119 ML PO SCH ×3 (14:17→20:44)
[2022-05-03] MEDS ORDERED: diphenhydrAMINE 50 MG/ML VIAL IV PRN (16:07)
[2022-05-04] MEDS: FIRST - Mouthwash BLM 119 ML PO SCH ×7 (00:42→22:21)
[2022-05-04 08:01] LABS: Hematocrit (blood only) 26.7 % (42.0-52.0); Mean Corpuscular Hgb Conc 33.7 g/dL (32.0-36.0); Mean Platelet Volume 8.8 fL (9.4-12.4); Platelet Count 369 K/uL (130-400); RDW Coefficient of Variation 12.5 % (11.5-14.5); RDW Standard Deviation 43.5 fL (36.4-46.3); Red Blood Count 2.81 M/uL (4.70-6.10); White Blood Count 10.83 K/ul (4.8-10.8)
[2022-05-04 08:17] LABS: BUN Creatinine Ratio 9.9 (10-20); Calcium 7.7 mg/dl (8.5-10.1); Creatinine Clr Calc Pharmacy 31.1 ml/min; Est GFR (African American) 33.8 ml/min; Est GFR (Non-African American) 29.1 ml/min; Potassium 3.9 mmol/L (3.5-5.1)
[2022-05-04] MEDS: methylPREDNISolone 60 MG in SYRINGE 0 ML IV SCH (08:38)
[2022-05-04] MEDS: INSULIN ASPART PER UNIT SC SCH ×4 (08:43→20:45)
[2022-05-04] MEDS: PANTOprazole 40 MG in SYRINGE 0 ML IV SCH ×2 (08:43→20:45)
[2022-05-04] MEDS ORDERED: SODIUM CHLORIDE 0.9% 500 ML IV SCH (08:45)
[2022-05-04] MEDS: FOLIC ACID 1 MG in SYRINGE 9.8 ML IV SCH (09:03)
--- NOTE | 2022-05-04 09:16 | Hospitalist Progress Note ---
Date of Service May 04, 2022 Assessment & Plan (1) Bullous pemphigoid: Plan: Spoke directly to patient's segregator, Dr William via the phone. 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 And she agreed with the IV Solumedrol and also the magic mouthwash. She stated when patient is able to take oral medication that Dapsone is a good choice. -Check G6PD to be sure patient is not a rapid metabolizer Admission due to poor oral intake with blisters in his mouth and corresponding hyponatremia Solu-medrol 125mg IV given in the ER. Continue this at 60mg IV daily. Switch to PO Dapsone (per Dermatology) at 50-150mg per day (if G6PD is normal) when able to take better oral intake. He has had response to prior steroid course although may not have been at high enough dose for long enough. Start outpatient prescribed methotrexate @ 12.5mg PO which he was due to start 05/03/22 BUT patient has refused all his po medications and is spitting his saliva into tissues Wound evaluated and left recommendations I have been speaking with Dr William via the phone daily. She instructed if he was able to swallow pills today to try the methotrexate. Patient already had the folic acid today, so will plan to take the methotrexate tomorrow 05/05/22. I placed the Folic Acid on hold for tomorrow. He is to take the 12.5mg of methotrexate one time weekly and on that day NO folic acid. He is to take the Folic Acid on the other 6 days. He is to follow up at Dr William office next week and also to have CBC and CMP 5 days after the Methotrexate dose. She will plan when to start the Dapsone when she evaluates him. (2) Acute hyponatremia: Plan: Suspect due to poor oral intake + loss from blisters + furosemide use Continue Normal saline @ 80ml/hr until able to adequately eat and hydrate Repeat labs tomorrow (3) Oropharyngeal dysphagia: Plan: SLT consulted Full liquid diet ordered Patient was able to drink some fluids today and also had some wonton soup his brought in. Magic mouth wash ordered to swish and swallow if patient is able to swallow (4) BPH (benign prostatic hyperplasia): Plan: Outpatient finasteride and tamsulosin currently held due to patient not being able to swallow his po medications (5) GERD without esophagitis: Plan: Change pantoprazole to IV BID (6) Hypothyroidism (acquired): Plan: TSH 0.941 in July 2021 Levothyroxine 75 mcg PO daily currently on hold Per pharmacy hold x 3 days and then can give IV Hopefully will be able to swallow the Levothyroxine tomorrow. (7) DM (diabetes mellitus): Plan: HbA1C 6.1 in September 2021. Repeat with AM labs. Given association with bollous pemphigoid consider discontinuation of linagliptin Pharmacy for glycemic control in setting of steroid use. (8) Anemia: Plan: At baseline. No inpatient workup required.And no evidence of any active bleeding. Patient had a few episodes of hemoptysis in the past, none while admitted (9) Peripheral neuropathy: Plan: Gabapentin on hold, since not taking po medications (10) Alcoholic cirrhosis: Plan: Complete Alcohol abstinence discussed with patient and his Monitor for worsening fluid status with IV fluids as above Due to hyponatremia with dry mucus membranes will currently hold diuretics Also held secondary to not taking po medications Per dermatology also recommended to not restart Furosemide (due to this medication may worsen Pemphigoid) Plan VTE Prophylaxis - deferred to avoid further SQ injections Early ambulation encouraged Diet - T2DM Disposition - admit to med/surg Discussed with Dr Everett Admission and Anticipated Discharge Date Admission Date: May 02, 2022 Subjective Patient was awake in bed and stated he felt that his pain in his mouth has slightly improved and he was trying to drink some liquids today. Review of Systems Review of Systems: Patient denies any ocular complaints or changes to his vision, chest pain, SOB, dyspnea, cough, abdominal pain or N/V. All ROS are negative unless stated + above. Physical Exam Constitutional: + ill appearing and cooperative; + uncomfortable Neck: trachea midline, no thyromegaly Respiratory: normal respiratory effort, lungs clear to auscultation Cardiovascular: Rate/Rhythm: regular rate and regular rhythm Extremities: no calf tenderness and no edema Gastrointestinal (Abdomen): normal bowel sounds, soft, nontender, no hepatosplenomegaly Psychiatric: Orientation: alert and oriented x 3 Eye Contact: good eye contact Results & Data Results & Data ([facility]) Vital Signs (Past 12 Hours) Vital Signs Temp Pulse Resp BP Pulse Ox O2 Del Method 05/04/22 07:53 36.8 C 99 H 17 105/66 97 Room Air 05/03/22 22:38 36.6 C 98 H 18 109/58 L 98 Room Air 05/03/22 21:54 Room Air Laboratory Results Abnormal lab results 05/03/22 05/04/22 05/04/22 Range/Units 20:44 07:32 07:32 WBC 10.83 H (4.8-10.8) K/ul RBC 2.81 L (4.70-6.10) M/uL Hgb 9.0 L (14.0-18.0) g/dl Hct 26.7 L (42.0-52.0) % MPV 8.8 L (9.4-12.4) fL Sodium 135 L (136-145) mmol/L Creatinine 2.12 H (0.6-1.4) mg/dl BUN/Creatinine Ratio 9.9 L (10-20) POC Glucose 101 H (70-99) mg/dl Calcium 7.7 L (8.5-10.1) mg/dl PG Care Time/CCT Total # of Minutes Spent Total Time Spent with Patient: Total time spent is greater than 50% in coordination of care (as documented) at patient's floor/unit and/or counseling patient: Coding Level of Care Code 79814 SUB INP/OBS CARE 3/50MIN Diagnoses Bullous pemphigoid L12.0 Acute hyponatremia E87.1 Oropharyngeal dysphagia R13.12 BPH (benign prostatic hyperplasia) N40.0 GERD without esophagitis K21.9 Hypothyroidism (acquired) E03.9 DM (diabetes mellitus) E11.9 Anemia D64.9 Peripheral neuropathy G62.9 Alcoholic cirrhosis K70.30
[2022-05-04] MEDS: SODIUM CHLORIDE 0.9% 1,000 ML IV SCH ×2 (10:35→20:48)
--- NOTE | 2022-05-04 14:17 | Pharmacy Report ---
Pharmacy Glycemic Short Note 2 - Date of Service May 04, 2022 - Glycemic Short BSG Results (Last 24 hours): 05/03/22 05/03/22 05/04/22 17:24 20:44 07:32 Glucose 87 POC Glucose 99 101 H 05/04/22 05/04/22 08:02 12:09 Glucose POC Glucose 77 83 OUTPATIENT ANTIDIABETIC REGIMEN: * Trajenta 5mg PO Daily * A1c 7.4% 05/03/22 ASSESSMENT: 05/04/22 * BSGs yesterday were 56-49-51-101 mg/dL. Patient received 25 units of NPH. * Today's BSGs are 77-83 mg/dL. Patient has received no insulin yet today. * Continue to hold NPH as all BSGs below goal range. Consider resumption of NPH when BSGs > 140 mg/dL consistently. * Continue Novolog. BASELINE * 77 year old male admitted with Bullous pemphigoid, with blisters in his mouth and poor PO intake, on IV steroids. * Patient had Solu-Medrol 125mg in ER yesterday, resulting in blood sugar of 292mg/d - given Lantus 25 and CF/CR 20/7, euglycemic this morning. * Changed to NPH this morning as Solu-Medrol is only Q24H at this time. * Patient unable to eat/swallow at this time, did give NPH this morning with Solu-Medrol, but will hold until re-evaluated tomorrow, since patient is not eating. PLAN FOR INPATIENT GLYCEMIC CONTROL: * Hold outpatient oral diabetes medications * Basal insulin * HOLD due to lower BSGs. * Bolus insulin * NovoLog per scale ACHS or Q6hrs while NPO * Goal Range: Low 110 mg/dL - High 140 mg/dL * Correction Factor: 30 mg/dL/unit * Nutritional / Prandial insulin per carb ratio of 1 unit per 10 grams CHO consumed
[2022-05-05] MEDS: FIRST - Mouthwash BLM 119 ML PO SCH ×4 (03:40→17:03)
[2022-05-05] MEDS: PANTOprazole 40 MG in SYRINGE 0 ML IV SCH (08:04)
[2022-05-05] MEDS: methylPREDNISolone 60 MG in SYRINGE 0 ML IV SCH (08:04)
[2022-05-05 10:02] LABS: Hematocrit (blood only) 29.4 % (42.0-52.0); Hemoglobin 9.5 g/dl (14.0-18.0); Mean Corpuscular Hemoglobin 30.9 pg (25.0-34.0); Mean Corpuscular Hgb Conc 32.3 g/dL (32.0-36.0); Mean Corpuscular Volume 95.8 fL (80.0-100.0); Mean Platelet Volume 8.8 fL (9.4-12.4); Platelet Count 395 K/uL (130-400); RDW Coefficient of Variation 12.7 % (11.5-14.5); RDW Standard Deviation 43.9 fL (36.4-46.3); Red Blood Count 3.07 M/uL (4.70-6.10); White Blood Count 7.89 K/ul (4.8-10.8)
[2022-05-05 10:14] LABS: Calcium 7.6 mg/dl (8.5-10.1); Creatinine Clr Calc Pharmacy 38.3 ml/min; Est GFR (African American) 43.5 ml/min; Est GFR (Non-African American) 37.5 ml/min; Potassium 3.5 mmol/L (3.5-5.1)
[2022-05-05] MEDS: SODIUM CHLORIDE 0.9% 1,000 ML IV SCH (10:22)
[2022-05-05] MEDS: INSULIN ASPART PER UNIT SC SCH ×2 (10:22→12:00)
--- NOTE | 2022-05-05 14:52 | Discharge Summary ---
Date of Service May 05, 2022 Admission HPI Per Admitting Provider Surjit Rogers is a 77 year old male who presents to the ER due to worsening blister lesions after recently discontinuing second prednisone course. Due to blisters in his mouth he is having problems swallowing food. No problems with food getting stuck but just painful in his mouth. He was recently biopsy confirmed diagnosed with bullous pemphigoid and his outside court operations clerk had planned to start another prednisone course and methotrexate today but due to the difficulty swallowing decided to come to the ER. Initial symptoms began March 21 with an itch and b/l lower extremity swelling - concerned for b/l cellulitis by PCP and started on Keflex. Seen in [place] ER with diffuse blistering rash on Mar 29 - noted rash started 3 weeks prior to this and started on hands although patient thinks it started on his b/l lower extremities with me today. He was diagnosed with a non-specific bullous eruption rash and discharged on doxycycline and prednisone on advice of dermatology (Dr William). He reports improvement on this steroid course but lesions never fully healed. Prednisone course 60mg 2days, tapering by 10mg ever 2 days. He did develop some hemoptysis which has been stable since CT chest performed by PCP showing a 1cm nodule in the left upper lobe - recommended PET/CT vs. [address] follow up. He reports the hemoptysis has continued but is no worse. He was follow up by his PCP on Apr 13 and treated with second steroid taper which finished last week. Prednisone 40mg 3 days, 20mg 3 days then 10mg 3 days. Again he reported some improvement but worse since stopping. He was followed up by dermatology and biopsy taken on Apr 16. This recently confirmed bullous pemphigoid and he just picked up new prednisone taper and methotrexate treatment today but is yet to take it. In the ER he was given 125mg Solu-Medrol IV and already feels some improvement when seen. Due to his difficulty swallowing he was referred to medicine for admission and ongoing management of bullous pemphigoid. Admission Exam Per Admitting Provider Constitutional: well developed; + not well nourished and no acute distress Eyes: PERRL, conjunctivae normal, anicteric sclerae ENMT: blisters on lateral mucus membranes and under tongue without thrush Respiratory: normal respiratory effort, lungs clear to auscultation Cardiovascular: Rate/Rhythm: regular rate and regular rhythm Extremities: + pedal edema (1+ b/l pitting edema) Gastrointestinal (Abdomen): normal bowel sounds, soft, nontender, no hepatosplenomegaly Skin: Extensive blistering of various stages all over all four extremities, trunk, abdomen and back. Mostly healing on arms with overlying sanguineous crust formation. No areas of cellulitis seen. Most active blisters on b/l LE Neurologic: moves all extremities and awake; not confused very hard of hearing Psychiatric: A+Ox3, euthymic affect Principal Diagnosis Bullous Pemphigoid Discharge Exam Constitutional WD/WN, vitals as above ENMT external ear and nose normal, oropharynx normal Neck trachea midline, no thyromegaly Respiratory normal respiratory effort, lungs clear to auscultation Cardiovascular RRR, no murmur, no edema Extremities: normal capillary refill; no calf tenderness and no edema Gastrointestinal (Abdomen) normal bowel sounds, soft, nontender, no hepatosplenomegaly Skin Multiple skin lesions with some blistered, some dry and excoriated and some blisters oozing clear serous fluid upper and lower extremities and upper trunk Psychiatric A+Ox3, euthymic affect Discharge Data Allergies Allergy/AdvReac Type Severity Reaction Status Date / Time No Known Allergies Allergy Unverified 05/02/22 15:41 Consultations 05/02/22 14:57 ED Decision to Admit Stat Hospital Course (1) Bullous pemphigoid: Spoke directly to patient's court operations clerk, Dr William via the phone. 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 And she agreed with the IV Solumedrol and also the magic mouthwash. She stated when patient is able to take oral medication that Dapsone is a good choice. -Check G6PD to be sure patient is not a rapid metabolizer G6PD is still pending Admission due to poor oral intake with blisters in his mouth and corresponding hyponatremia Solu-medrol 125mg IV given in the ER. Continue this at 60mg IV daily. Switch to PO Dapsone (per Dermatology) at 50-150mg per day (if G6PD is normal) when able to take better oral intake. He has had response to prior steroid course although may not have been at high enough dose for long enough. Patient was infact given the methotrexate 12.5mg on 05/02/22 in the evening Wound evaluated and left recommendations I have been speaking with Dr William via the phone daily. He is to take the 12.5mg of methotrexate one time weekly and on that day NO folic acid. He is to take the Folic Acid on the other 6 days. He is to follow up at Dr William office next week and also to have CBC and CMP 5 days after the Methotrexate dose. She will plan when to start the Dapsone when she evaluates him. Patient and his and his daughter were all educated on dressing changes and to take the methotrexate every Saturday and NOT to take the Folic acid on Wednesdays. Patient will need a CBC and CMP on SaturdayMay 08 Patient will be discharged today and will need CBC and CMP drawn in 3 days Will need to follow up with Dr William next week Will resume regular home meds (except no Folic acid on Wednesdays when takes the methotrexate) and also resume the prednisone taper rx by dermatology Needs 2nd dose of Methotrexate SaturdayMay 09 (2) Acute hyponatremia: Suspect due to poor oral intake + loss from blisters + furosemide use Continue Normal saline @ 80ml/hr until able to adequately eat and hydrate improved (3) Oropharyngeal dysphagia: SLT consulted Full liquid diet ordered Patient was able to drink some fluids today and also had some wonton soup his brought in. Magic mouth wash ordered to swish and swallow if patient is able to swallow (4) BPH (benign prostatic hyperplasia): Outpatient finasteride and tamsulosin currently held due to patient not being able to swallow his po medications (5) GERD without esophagitis: Change pantoprazole to IV BID while inpatient, and resume po on discharge (6) Hypothyroidism (acquired): TSH 0.941 in July 2021 Levothyroxine 75 mcg PO daily (7) DM (diabetes mellitus): HbA1C 6.1 in September 2021. Repeat with AM labs. Repeat this admission was 7.4 (likely elevate due to recent steroid usage) (8) Anemia: At baseline. No inpatient workup required.And no evidence of any active bleeding. Patient had a few episodes of hemoptysis in the past, none while admitted (9) Peripheral neuropathy: Gabapentin resumed (10) Alcoholic cirrhosis: Complete Alcohol abstinence discussed with patient and his Per dermatology also recommended to not restart Furosemide (due to this medication may worsen Pemphigoid) Plan VTE Prophylaxis - deferred to avoid further SQ injections Early ambulation encouraged Diet - T2DM Disposition - admit to med/surg Discussed with Dr Everett [facility] Attestation I certify that this patient is under my care and that I, or a physicians conservation assistant working with me, had a face to-face encounter that meets the home health [id number] encounter requirements with this patient. The encounter with the patient was in whole, or in part, for the following medi hal condition, which is the primary reason for home health care (list medical condition): Bullous Pemphigoid, weakness, fatigue, unable to swallow I certify that, based on my findings, the following services are medically necessary home health services: My clinical findings support the need for the above services because: PT Assessment for Endurance / Balance / Strength PT Eval for Safety and Mobility PT Eval for Safety, Gait Training, Assistive Devices PT Gait and Balance Training, Strengthening and Safety Safety Skilled Nsg Assessment Skilled Nsg Assessment Surgical Incision / Wound Further, I certify that my clinical findings support that this patient is homebound (i.e. absences from home require considerable and taxing effort and are for medical reasons or tenriism services or infrequently or of short duration when for other reasons) because: Assistance of 1 Person for Ambulation/Activities Supportive Aid - Wheelchair Certification for Home Health Services: Based on the above findings, I certify that this patient is confined to the home and needs intermittent senior living care, physical therapy and/or speech therapy or continues to need occupational therapy. The patient is under my care, and I have initiated the establishment of the plan of care. This patient will be followed by a physician who will periodically review the plan of care. Total Time Total Time Spent Total Time Spent (In Minutes): 45 Discharge Plan Discharge Items Patient Disposition: Home - Home Health Services Reason For Visit: BULLOUS PEMPHIGOID Discharge Diagnosis: bullous pemphigoid Condition on Discharge: Fair Activity: Resume your previous activity Weightbearing: Full weightbearing Non-emergency contact: Primary Care Provider Call non-emergency contact if: you have any medication questions Follow-up/Referrals: Crystal Camejo DO [Primary Care Provider] - Laquita William MD [Outside Practitioners] - Diet: Carb Consistent or DM2 Diet Texture: Mechanical soft (ground) Ambulatory Orders: Complete Blood Count no Diff (Routine) Timeframe: 3 Days Location: Determined by Patient Ordered By: Faiza Celestin Comprehensive Metabolic Panel (Routine) Timeframe: 3 Days Location: Determined by Patient Ordered By: Faiza Hutchinson Attending Provider Instructions: you were admitted with blistered rash and had difficulty swallowing to the same blistered lesions in yor mouth. I spoke with your regular court operations clerk Dr Laquita William who recommended you take the methotrexate 12.5 mg, continue IV steroids. We also used magic mouth wash to help with your mouth pain and held most of your medications until your symptoms improved and you were then able to eat and drink. You will need to take your Methotrexate every Saturday. DO NOT take folic acid on Wednesdays. You will also need to take the prednisone taper medication that you already have at home from dermatology. You will need blood work in [address] operations clerk suggested that your DO NOT take the Furosemide (Lasix) medication while you are having a flare of the bullous pemphigoid. You also will not need the Potassium while off the lasix. Limit sodium in diet and elevate legs when at rest. You also should follow up with in the next week or 2 with your primary care doctor. Also discussed complete alcohol abstinence. You may need to eventually follow with a liver specialist or GI specialist but we will leave that up to your primary care physician to set that up. Pending Studies at Discharge: Yes Studies:: G6PD blood test is pending. This was done to make sure you are not a rapid metabolizer of Dapsone. Which is a form of steroid that may be started by your court operations clerk in the future. Stand-Alone Forms: My [facility] Medications and DC Order Prescriptions: Continued finasteride 5 mg tablet 5 mg PO DAILY Qty: 90 3RF mirtazapine 15 mg tablet 15 mg PO DAILY Qty: 30 2RF (DME) OneTouch Ultra Blue Test Strip strip See Dose Instructions .ROUTE .MEDSUPPLY Qty: 10 0RF Dose Instruction: As directed Rx Instructions: As directed (DME) blood-glucose meter [OneTouch Ultra2 Meter] kit See Dose Instructions .ROUTE .MEDSUPPLY Qty: 1 0RF Dose Instruction: As directed Rx Instructions: As directed (DME) lancets [OneTouch UltraSoft Lancets] misc See Dose Instructions .ROUTE .MEDSUPPLY Qty: 50 0RF Dose Instruction: As directed Rx Instructions: As directed psyllium husk [Daily Fiber] 0.52 gram capsule 0.52 g PO DAILY Qty: 30 0RF levothyroxine 75 mcg tablet 75 mcg PO DAILY Qty: 30 2RF triamcinolone acetonide 0.1 % cream 1 applic topical DAILY PRN (Reason: itching) Qty: 80 1RF guaifenesin 400 mg tablet 400 mg PO BID PRN (Reason: cough) Qty: 30 0RF Tradjenta 5 mg tablet 5 mg PO DAILY Qty: 90 1RF betamethasone dipropionate 0.05 % cream 1 applic topical BID PRN (Reason: skin irritation) Qty: 45 3RF levocetirizine 5 mg tablet 5 mg PO DAILY Qty: 90 1RF (DME) Unna Boot Zinc-Calamine 3 %-3 %- 4" X 10 yard bandage See Rx Instructions .Route Qty: 2 11RF Rx Instructions: As directed pantoprazole 40 mg tablet,delayed release (DR/EC) 40 mg PO BID Qty: 180 1RF tamsulosin 0.4 mg capsule 0.4 mg PO DAILY Qty: 30 2RF cyclobenzaprine 10 mg tablet 10 mg PO HS PRN (Reason: muscle spasm) magnesium oxide 420 mg tablet 420 mg PO DAILY metoprolol tartrate 25 mg tablet 25 mg PO DAILY simvastatin 10 mg tablet 5 mg PO QPM nystatin 100,000 unit/gram ointment 1 applic topical BID Qty: 30 2RF aspirin [Meseret Low Dose Aspirin] 81 mg tablet,delayed release (DR/EC) 81 mg PO DAILY spironolactone 25 mg tablet 25 mg PO DAILY Qty: 90 2RF methotrexate sodium 2.5 mg tablet 12.5 mg PO WK Rx Instructions: Not yet started as of 05/02/2021 folic acid 1 mg tablet 1 mg PO DAILY mecobalamin (vitamin B12) [B12 Active] 1,000 mcg Tablet,Chewable 0 mcg PO DAILY Discontinued potassium chloride 20 mEq tablet extended release 20 meq PO DAILY Qty: 30 2RF furosemide 20 mg tablet 20 mg PO DAILY Qty: 90 1RF Discharge Orders: Discharge Order (Routine); Ordered 05/05/22 Ordered By: Faiza Oro/Other Patient Handouts: Low-Salt Choices, Managing Type 2 Diabetes, Understanding Bullous Pemphigoid, Special Foot Care for Diabetes, ED Low-Salt Diet Admission Data Admit Date/Time: 05/02/22 15:35 Attending Provider: Justen Everett Admit Provider: Seb Kelley Primary Care Provider: Crystal Camejo Other Providers: Seb Kelley ; Terry Fleming [facility] Coding Level of Care Code HOSP INP/OBS DISCH >30 MIN Diagnoses Bullous pemphigoid L12.0 Acute hyponatremia E87.1 Oropharyngeal dysphagia R13.12 BPH (benign prostatic hyperplasia) N40.0 GERD without esophagitis K21.9 Hypothyroidism (acquired) E03.9 DM (diabetes mellitus) E11.9 Anemia D64.9 Peripheral neuropathy G62.9 Alcoholic cirrhosis K70.30
== END 2022-05-05 18:25 | disposition home health service (06) ==
LOC: ED 10:39 → INTOOBSV 15:35 → SUATTDRO 15:35 → 3N 15:35

== ENCOUNTER 2022-05-15 00:10 | Inpatient (IN) ==
[2022-05-15] MEDS ORDERED: SODIUM CHLORIDE 0.9% 1000ML 1,000 ML IV SCH ×2 (00:45→01:00)
[2022-05-15] MEDS ORDERED: SODIUM CHLORIDE 0.9% 500 ML IV SCH (00:45)
--- NOTE | 2022-05-15 00:50 | Emergency Department Note ---
Impression & Plan Neutropenic fever, Bullous pemphigoid, Acute dehydration ED Provider Note CHIEF COMPLAINT: Poor p.o. intake, wounds to the arms and legs HISTORY OF PRESENT ILLNESS: This 77-year-old male patient presents to the emergency department with complaints of poor p.o. intake per family. Patient suffers from bullous pemphigoid and has bleeding wounds to the bilateral arms. He is not able to give a significant history. Much of the history is given per nursing staff and EMS. Family arrived and reports fever last night, decreased p.o. intake. Patient is scheduled to follow-up with ENT due to difficulty swallowing. states he is supposed to have a "scope." REVIEW OF SYSTEMS: A review of systems was performed with positives and pertinent negatives listed in the history of present illness. 10 systems were reviewed and are otherwise negative. ALLERGIES: see below MEDICATIONS: see below PMH: see below SOCIAL HISTORY: see below DDx: Cellulitis, UTI, dehydration, metabolic abnormality, hypo/hyperglycemia, electrolyte disturbance, anemia, hypoxia, cardiac sources, toxicologic, neurologic, as well as other pathologies. PHYSICAL EXAM: Vital signs reviewed. General: Chronically ill-appearing 77-year-old male, in some discomfort HEENT: No scleral icterus, PERRLA, neck supple. Mucous membranes Cardiovascular: Regular rate and rhythm, no extra sounds. Pulmonary: Clear to auscultation bilaterally, normal work of breathing. Abdomen: Soft, nontender, nondistended, positive bowel sounds. Musculoskeletal: Atraumatic, no peripheral edema. Neurologic: Patient awake alert and oriented x 3, speech is clear Skin: Warm, dry, multiple open lesions to the bilateral upper extremities with active oozing of bright red blood. Pressure ulcers noted to the sacrum. EMERGENCY DEPARTMENT COURSE/MDM: This patient was evaluated and appeared to be in chronically and acutely ill. Patient was hydrated with 500 cc of normal saline solution which was repeated a second time. He was receiving 125 mL/h thereafter. Laboratory work was obtained and reveals a neutropenia which is new from his most recent hospitalization. In review of the patient's external medical records, it appears that he has recently started prednisone and methotrexate for his bullous pemphigoid. Patient's states he has difficulty swallowing and therefore his p.o. intake is diminished. It does appear that the patient choked on water at the bedside. Chronic aspiration could be an issue. Nonetheless the patient is noted to have a rectal temperature of 38.8, he was given 1 g of IV acetaminophen and medicated with IV cefepime. Case was discussed with the hospitalist who will evaluate the patient for admission and further management. Patient's family members at the bedside were informed of the findings and plan and agreed. MONITORING: An order for cardiac monitoring was placed and the patient is noted to be in a sinus tachycardia at 150 beats per minute. RADIOLOGY: CXR to my interpretation reveals no evidence of focal lung consolidation or failure. EKG: To my review reveals poor quality baseline for interpretation sinus tachycardia with premature supraventricular complexes 138 bpm right axis deviation. Overall read is significantly affected by artifact. No improvement on repeat attempts. DISPOSITION: Admission Past Med/Surg History Medical History Acute hyponatremia Acute kidney injury Acute pain of mouth Alcoholic cirrhosis Anemia Arthritis Ascites due to alcoholic cirrhosis Boil of groin BPH (benign prostatic hyperplasia) CAD (coronary artery disease) Cardiomyopathy CHF (congestive heart failure) Chronic rhinitis Depression DM (diabetes mellitus) GERD without esophagitis Hearing difficulty of both ears History of GI bleed HTN (hypertension) Hyperlipidemia Hypothyroidism (acquired) Insomnia Low magnesium levels Mild cognitive impairment Neuropathy Oropharyngeal dysphagia Peripheral neuropathy Stage 4 chronic kidney disease due to benign hypertension Testicular nodule Vitamin D deficiency Surgical History H/O hand surgery History of back surgery S/P cataract surgery S/P cholecystectomy S/P shoulder surgery Family History Mother Ovarian cancer Denies family history of Prostate cancer Myocardial infarction Breast cancer Colorectal cancer Social History Smoking Status: Never smoker Tobacco Type: Cigarettes Cigarettes Per Day: Uncertain of amt.; Second Hand Exposure: No; Do You Dip or Chew Tobacco: No; Tobacco Cessation Education Requested by Patient: No Hx Alcohol Use: Yes Alcohol type: beer Alcohol Intake Frequency: 4 or More x per/Week Hx Substance Use: No Preferred Language: Occitan Communication Ability: Impaired Visual Impairment: No Limitations Hearing Ability: Use of Hearing Aid Tool Die Maker Required: No Beliefs That Will Affect Care: None marital status: Current Living Situation: Spouse current occupational status: retired Other Information That Helps Us Care for You: No Feels Safe at Home: Yes Safety Concerns: Feels Safe At This Time Childhood Exposure to Second-Hand Smoke: Yes Diet Comment: barely eats as per caffeine: No during the past year weight has: remained stable Dental Care, Regularly: No Physical Activity Frequency: Does not Exercise Seatbelt Use: always Sunscreen Use: No Assistive Devices: Cane, Hearing Aid - Bilateral and Walker Assistive Devices Comment: motorized wheelchair Allergies Allergies Allergy/AdvReac Type Severity Reaction Status Date / Time No Known Allergies Allergy Unverified 05/11/22 10:58 Home Meds Home Medications Medication Instructions Recorded Confirmed aspirin 81 mg tablet,delayed 81 mg PO DAILY 04/28/21 05/15/22 release (Meseret Low Dose Aspirin) cyclobenzaprine 10 mg tablet 10 mg PO HS PRN muscle spasm 05/31/21 05/15/22 magnesium oxide 420 mg tablet 420 mg PO DAILY 05/31/21 05/15/22 metoprolol tartrate 25 mg tablet 25 mg PO DAILY 03/21/22 05/15/22 simvastatin 10 mg tablet 5 mg PO QPM 03/21/22 05/15/22 folic acid 1 mg tablet 1 mg PO DAILY 05/02/22 05/15/22 mecobalamin (vitamin B12) 1,000 0 mcg PO DAILY 05/02/22 05/15/22 mcg chewable tablet (B12 Active) methotrexate sodium 2.5 mg tablet 12.5 mg PO WK 05/02/22 05/15/22 Previous Rx's Medication Instructions Recorded blood sugar diagnostic (Culture MachineTouch #10 ea 08/11/18 Ultra Blue Test Strip) blood-glucose meter (Culture MachineTouch #1 ea 08/11/18 Ultra2 Meter kit) finasteride 5 mg tablet 5 mg PO DAILY #90 tabs 08/11/18 lancets (Culture MachineTouch UltraSoft #50 ea 08/11/18 Lancets) mirtazapine 15 mg tablet 15 mg PO DAILY #30 tabs 08/11/18 tamsulosin 0.4 mg capsule 0.4 mg PO DAILY #30 caps 12/29/20 psyllium husk 0.52 gram capsule 0.52 g PO DAILY #30 caps 06/02/21 (Daily Fiber) levothyroxine 75 mcg tablet 75 mcg PO DAILY #30 tabs 07/31/21 triamcinolone acetonide 0.1 % 1 applic topical DAILY PRN itching 11/09/21 topical cream #80 grams guaifenesin 400 mg tablet 400 mg PO BID PRN cough #30 tabs 11/10/21 betamethasone dipropionate 0.05 % 1 applic topical BID PRN skin 11/21/21 topical cream irritation #45 grams spironolactone 25 mg tablet 25 mg PO DAILY #90 tabs 12/05/21 levocetirizine 5 mg tablet 5 mg PO DAILY #90 tabs 02/09/22 nystatin 100,000 unit/gram topical 1 applic topical BID #30 grams 03/21/22 ointment calamine 3 %-zinc oxide 3 %-gauze #2 ea 04/20/22 bandage 4" X 10 yard (Unna Boot Zinc-Calamine) pantoprazole 40 mg tablet,delayed 40 mg PO BID #180 tabs 05/01/22 release linagliptin 5 mg tablet (Tradjenta) 5 mg PO DAILY #90 tabs 05/11/22 Results & Data (ED) Vital Signs Vital Signs - 24 hr 05/15/22 00:52 05/15/22 01:00 05/15/22 02:01 Temperature 36.1 C L 38.8 C H Temperature Source Oral Rectal Pulse Rate 140 H Pulse Rate [Right] Respiratory Rate 20 Respiratory Effort / Characteristics Non-Labored Spontaneous Respiratory Depth Normal Blood Pressure 126/69 Blood Pressure [Right Arm] Blood Pressure Mean 88 Blood Pressure Mean [Right Arm] Blood Pressure Position Lying Blood Pressure Position [Right Arm] Pulse Oximetry 95 95 Oxygen Delivery Method Room Air Nasal Cannula Sepsis Recent Fever Within 48 Hours No Sepsis New/Unexplained Change in Mental Status N/A Sepsis Action Taken by Nursing No Action Required 05/15/22 02:24 05/15/22 03:38 05/15/22 04:50 Temperature 37.8 C H Temperature Source Rectal Pulse Rate 126 H Pulse Rate [Right] 141 H 127 H Respiratory Rate 16 20 Respiratory Effort / Characteristics Non-Labored Spontaneous Non-Labored Spontaneous Respiratory Depth Normal Normal Blood Pressure Blood Pressure [Right Arm] 124/64 124/62 Blood Pressure Mean Blood Pressure Mean [Right Arm] 84 82 Blood Pressure Position Blood Pressure Position [Right Arm] Sitting Lying Pulse Oximetry 99 98 Oxygen Delivery Method Room Air Room Air Sepsis Recent Fever Within 48 Hours Sepsis New/Unexplained Change in Mental Status Sepsis Action Taken by Nursing 05/15/22 05:03 Temperature Temperature Source Pulse Rate Pulse Rate [Right] 129 H Respiratory Rate 19 Respiratory Effort / Characteristics Non-Labored Spontaneous Respiratory Depth Normal Blood Pressure Blood Pressure [Right Arm] 125/73 Blood Pressure Mean Blood Pressure Mean [Right Arm] 90 Blood Pressure Position Blood Pressure Position [Right Arm] Lying Pulse Oximetry 99 Oxygen Delivery Method Room Air Sepsis Recent Fever Within 48 Hours Sepsis New/Unexplained Change in Mental Status Sepsis Action Taken by Shelter Medications Current Medication List: was personally reviewed by me Laboratory Data Attestation: I reviewed the patient's lab results. 05/15/22 00:42 05/15/22 00:42 Lab Results 05/15/22 05/15/22 05/15/22 Range/Units 00:42 00:42 00:42 WBC 0.46 L* (4.8-10.8) K/ul RBC 3.11 L (4.70-6.10) M/uL Hgb 9.7 L (14.0-18.0) g/dl Hct 28.8 L (42.0-52.0) % MCV 92.6 (80.0-100.0) fL MCH 31.2 (25.0-34.0) pg MCHC 33.7 (32.0-36.0) g/dL RDW Std Deviation 41.1 (36.4-46.3) fL RDW Coeff of Otto 12.2 (11.5-14.5) % Plt Count 110 L (130-400) K/uL MPV 9.2 L (9.4-12.4) fL Immature Gran % (Auto) Cancelled Neut % (Auto) Cancelled Lymph % (Auto) Cancelled [place] % (Auto) Cancelled Eos % (Auto) Cancelled Baso % (Auto) Cancelled Neut # (Auto) Cancelled Lymph # (Auto) Cancelled [place] # (Auto) Cancelled Eos # (Auto) Cancelled Baso # (Auto) Cancelled Immature Gran # (Auto) Cancelled Absolute Nucleated RBC 0.02 (0-0.12) K/uL Nucleated RBC % (auto) 4.3 % Neutrophils % (Manual) Cancelled Band Neutrophils % Cancelled Lymphocytes % (Manual) Cancelled Prolymphocyte % Cancelled Reactive Lymphs % (Man) Cancelled Monocytes % (Manual) Cancelled Eosinophils % (Manual) Cancelled Basophils % (Manual) Cancelled Metamyelocytes % (Man) Cancelled Myelocytes % (Man) Cancelled Promyelocytes % (Man) Cancelled Blast Cells % (Manual) Cancelled Plasma Cell % (Manual) Cancelled Other Cells % Cancelled Nucleated RBC % Cancelled Neutrophils # (Manual) Cancelled Band Neutrophils # Cancelled Total Absolute Neuts Cancelled Lymphocytes # (Manual) Cancelled Prolymphocyte # Cancelled Reactive Lymphs # Cancelled Total Abs Lymphocytes Cancelled Monocytes # (Manual) Cancelled Eosinophils # (Manual) Cancelled Basophils # (Manual) Cancelled Metamyelocytes # (Man) Cancelled Myelocytes # (Manual) Cancelled Promyelocytes # (Man) Cancelled Blast Cells # (Man) Cancelled Plasma Cell # (Manual) Cancelled Other Cells # Cancelled Nucleated RBCs # (Man) Cancelled Hypersegmented Neuts Cancelled Hyposegmented Neuts Cancelled Hypogranular Neuts Cancelled Large Granular Lymphs Cancelled # Lrg Granular Lymphs Cancelled Hairy Cells Cancelled Smudge Cells Cancelled Toxic Granulation Cancelled Toxic Vacuolation Cancelled Dohle Bodies Cancelled Altaf Rods Cancelled Hypogranular Platelets Cancelled Giant Platelets Cancelled Platelet Satelliting Cancelled RBC Morphology Cancelled Polychromasia Cancelled Hypochromasia Cancelled Poikilocytosis Cancelled Basophilic Stippling Cancelled Anisocytosis Cancelled Microcytosis Cancelled Macrocytosis Cancelled Spherocytes Cancelled Pappenheimer Bodies Cancelled Sickle Cells Cancelled Target Cells Cancelled Tear Drop Cells Cancelled Ovalocytes Cancelled Stomatocytes Cancelled [place] Bodies Cancelled Echinocytes Cancelled Acanthocytes (Spur) Cancelled Rouleaux Cancelled RBC Agglutinates Cancelled Schistocytes Cancelled [place] Cell Cancelled Sodium 130 L (136-145) mmol/L Potassium 4.5 (3.5-5.1) mmol/L Chloride 100 (98-107) mmol/L Carbon Dioxide 22 (21-32) mmol/L Anion Gap 8 (3-11) BUN 21 (6-23) mg/dl Creatinine 1.71 H (0.6-1.4) mg/dl Est Cr Clr Drug Dosing 37.4 ml/min Est GFR ( Amer) 43.8 ml/min Est GFR (Non-Af Amer) 37.8 ml/min BUN/Creatinine Ratio 12.3 (10-20) Glucose 154 H (70-99(Fasting)) mg/dl Lactate 1.5 (0.4-2.0) mmol/L Calcium 7.7 L (8.5-10.1) mg/dl Magnesium 1.8 (1.7-2.4) mg/dl Total Bilirubin 1.2 H (0.2-1.0) mg/dl AST 15 (13-39) U/L ALT 14 (7-52) U/L Alkaline Phosphatase 85 (34-104) U/L Total Creatine Kinase < 10 L (30-223) U/L Troponin I High Sens 21.5 H (0-20) pg/ml Total Protein 5.7 L (6.0-8.3) gm/dl Albumin 2.4 L (3.4-5.0) gm/dl Globulin 3.3 (2.5-4.0) gm/dl Albumin/Globulin Ratio 0.7 L (0.9-2) TSH (0.300-4.500) uIu/ml Urine Color Urine Appearance (Clear) Urine pH (4.5-7.5) Ur Specific [place] (1.000-1.030) Urine Protein (Negative) Urine Glucose (UA) (Negative) Urine Ketones (Negative) Urine Blood (Negative) Urine Nitrite (Negative) Urine Bilirubin (Negative) Urine Urobilinogen (Negative) Ur Leukocyte Esterase (Negative) Urine WBC (Auto) (0-5) /hpf Urine RBC (Auto) (0-4) /hpf U Hyaline Cast (Auto) (0-5) /lpf U Epithel Cells (Auto) (0-5) /lpf Urine Bacteria (Auto) (Negative) Urine Yeast SARS-CoV-2 (PCR) (Negative) Influenza Type A (PCR) (Neg) Influenza Type B (PCR) (Neg) RSV (RT-PCR) (Neg) Blood Parasites ID Cancelled 05/15/22 05/15/22 05/15/22 Range/Units 00:42 00:47 00:50 WBC (4.8-10.8) K/ul RBC (4.70-6.10) M/uL Hgb (14.0-18.0) g/dl Hct (42.0-52.0) % MCV (80.0-100.0) fL MCH (25.0-34.0) pg MCHC (32.0-36.0) g/dL RDW Std Deviation (36.4-46.3) fL RDW Coeff of Otto (11.5-14.5) % Plt Count (130-400) K/uL MPV (9.4-12.4) fL Immature Gran % (Auto) Neut % (Auto) Lymph % (Auto) [place] % (Auto) Eos % (Auto) Baso % (Auto) Neut # (Auto) Lymph # (Auto) [place] # (Auto) Eos # (Auto) Baso # (Auto) Immature Gran # (Auto) Absolute Nucleated RBC (0-0.12) K/uL Nucleated RBC % (auto) % Neutrophils % (Manual) Band Neutrophils % Lymphocytes % (Manual) Prolymphocyte % Reactive Lymphs % (Man) Monocytes % (Manual) Eosinophils % (Manual) Basophils % (Manual) Metamyelocytes % (Man) Myelocytes % (Man) Promyelocytes % (Man) Blast Cells % (Manual) Plasma Cell % (Manual) Other Cells % Nucleated RBC % Neutrophils # (Manual) Band Neutrophils # Total Absolute Neuts Lymphocytes # (Manual) Prolymphocyte # Reactive Lymphs # Total Abs Lymphocytes Monocytes # (Manual) Eosinophils # (Manual) Basophils # (Manual) Metamyelocytes # (Man) Myelocytes # (Manual) Promyelocytes # (Man) Blast Cells # (Man) Plasma Cell # (Manual) Other Cells # Nucleated RBCs # (Man) Hypersegmented Neuts Hyposegmented Neuts Hypogranular Neuts Large Granular Lymphs # Lrg Granular Lymphs Hairy Cells Smudge Cells Toxic Granulation Toxic Vacuolation Dohle Bodies Altaf Rods Hypogranular Platelets Giant Platelets Platelet Satelliting RBC Morphology Polychromasia Hypochromasia Poikilocytosis Basophilic Stippling Anisocytosis Microcytosis Macrocytosis Spherocytes Pappenheimer Bodies Sickle Cells Target Cells Tear Drop Cells Ovalocytes Stomatocytes [place] Bodies Echinocytes Acanthocytes (Spur) Rouleaux RBC Agglutinates Schistocytes [place] Cell Sodium (136-145) mmol/L Potassium (3.5-5.1) mmol/L Chloride (98-107) mmol/L Carbon Dioxide (21-32) mmol/L Anion Gap (3-11) BUN (6-23) mg/dl Creatinine (0.6-1.4) mg/dl Est Cr Clr Drug Dosing ml/min Est GFR ( Amer) ml/min Est GFR (Non-Af Amer) ml/min BUN/Creatinine Ratio (10-20) Glucose (70-99(Fasting)) mg/dl Lactate (0.4-2.0) mmol/L Calcium (8.5-10.1) mg/dl Magnesium (1.7-2.4) mg/dl Total Bilirubin (0.2-1.0) mg/dl AST (13-39) U/L ALT (7-52) U/L Alkaline Phosphatase (34-104) U/L Total Creatine Kinase (30-223) U/L Troponin I High Sens (0-20) pg/ml Total Protein (6.0-8.3) gm/dl Albumin (3.4-5.0) gm/dl Globulin (2.5-4.0) gm/dl Albumin/Globulin Ratio (0.9-2) TSH 1.507 (0.300-4.500) uIu/ml Urine Color Dark Yellow Urine Appearance Clear (Clear) Urine pH 5.0 (4.5-7.5) Ur Specific [place] 1.022 (1.000-1.030) Urine Protein 1+ H (Negative) Urine Glucose (UA) 2+ H (Negative) Urine Ketones Trace H (Negative) Urine Blood Negative (Negative) Urine Nitrite Negative (Negative) Urine Bilirubin Negative (Negative) Urine Urobilinogen Negative (Negative) Ur Leukocyte Esterase Negative (Negative) Urine WBC (Auto) 1-5 (0-5) /hpf Urine RBC (Auto) 0-4 (0-4) /hpf U Hyaline Cast (Auto) 1-5 (0-5) /lpf U Epithel Cells (Auto) >30 H (0-5) /lpf Urine Bacteria (Auto) Negative (Negative) Urine Yeast Not Reportable SARS-CoV-2 (PCR) NEGATIVE (Negative) Influenza Type A (PCR) Negative (Neg) Influenza Type B (PCR) Negative (Neg) RSV (RT-PCR) Negative (Neg) Blood Parasites ID Administered Medications Lactated Ringer's (Lr) 1,000 mls @ 80 mls/hr IV .[id number] CROW Stop: 06/14/22 06:07 Last Admin: 05/15/22 06:32 Dose: 80 mls/hr Documented By: BOONE Discontinued Medications Sodium Chloride (Nss) 500 mls @ 999 mls/hr IV .Q31M CROW Stop: 05/15/22 01:15 Last Infusion: 05/15/22 01:40 Dose: 0 mls/hr Documented By: Admin: 05/15/22 01:05 Dose: 999 mls/hr Documented By: JANA Sodium Chloride (Nss 1000ml) 1,000 mls @ 125 mls/hr IV .Q8H CROW Stop: 06/14/22 00:44 Last Infusion: 05/15/22 06:33 Dose: 0 mls/hr Documented By: Admin: 05/15/22 01:15 Dose: 125 mls/hr Documented By: JANA Sodium Chloride (Nss 1000ml) 1,000 mls @ 150 mls/hr IV .[id number] CROW Stop: 06/14/22 00:59 Last Admin: 05/15/22 01:04 Dose: Not Given Documented By: JANA Cefepime HCl (Maxipime) 2,000 mg in 20 mls @ 5 mls/min IV NOW STA; Protocol Stop: 05/15/22 02:08 Last Admin: 05/15/22 02:17 Dose: 5 mls/min Documented By: JANA Acetaminophen (Ofirmev) 1,000 mg in 100 mls @ 400 mls/hr IV NOW STA Stop: 05/15/22 02:20 Last Infusion: 05/15/22 02:25 Dose: 0 mls/hr Documented By: Admin: 05/15/22 02:10 Dose: 400 mls/hr Documented By: JANA Discharge Plan Visit Data Chief Complaint: Illness Stated Complaint: Constipation, Cough, Wounds ED Provider: Opal Robins Discharge Problem: Neutropenic fever, Bullous pemphigoid, Acute dehydration Patient Disposition: Admitted As Inpatient Discharge Instructions Interventions: ED Discharge Assessment Last Done: 05/15/22 05:50
[2022-05-15 01:12] LABS: Appearance Urine Clear (Clear); Bacteria Urine Automated Negative (Negative); Bilirubin Urine Negative (Negative); Blood Urine Negative (Negative); Color Urine Dark Yellow; Epithelial Cell Urine Auto >30 /lpf (0-5); Glucose Urine UA 2+ (Negative); Ketones Urine Trace (Negative); Leukocyte Esterase Urine Negative (Negative); Nitrite Urine Negative (Negative); Protein Urine 1+ (Negative); RBC Urine Automated 0-4 /hpf (0-4); Specific Gravity Urine 1.022 (1.000-1.030); Urobilinogen Urine Negative (Negative)
[2022-05-15 01:20] LABS: Anion Gap 8 (3-11); BUN Creatinine Ratio 12.3 (10-20); Blood Urea Nitrogen 21 mg/dl (6-23); Calcium 7.7 mg/dl (8.5-10.1); Carbon Dioxide 22 mmol/L (21-32); Chloride 100 mmol/L (98-107); Creatinine Clr Calc Pharmacy 37.4 ml/min; Est GFR (African American) 43.8 ml/min; Est GFR (Non-African American) 37.8 ml/min; Glucose 154 mg/dl (70-99(Fasting)); Potassium 4.5 mmol/L (3.5-5.1); Sodium 130 mmol/L (136-145)
[2022-05-15 01:26] LABS: Troponin I High Sensitivity 21.5 pg/ml (0-20)
[2022-05-15 01:30] LABS: Hematocrit (blood only) 28.8 % (42.0-52.0); Hemoglobin 9.7 g/dl (14.0-18.0); Mean Corpuscular Hemoglobin 31.2 pg (25.0-34.0); Mean Corpuscular Hgb Conc 33.7 g/dL (32.0-36.0); Mean Corpuscular Volume 92.6 fL (80.0-100.0); Mean Platelet Volume 9.2 fL (9.4-12.4); Nucleated RBC # (auto) 0.02 K/uL (0-0.12); Nucleated RBC % (auto) 4.3 %; Platelet Count 110 K/uL (130-400); RDW Coefficient of Variation 12.2 % (11.5-14.5); RDW Standard Deviation 41.1 fL (36.4-46.3); Red Blood Count 3.11 M/uL (4.70-6.10); White Blood Count 0.46 K/ul (4.8-10.8)
[2022-05-15 01:36] LABS: Alanine Aminotransferase 14 U/L (7-52); Albumin Globulin Ratio 0.7 (0.9-2); Albumin Level 2.4 gm/dl (3.4-5.0); Alkaline Phosphatase 85 U/L (34-104); Aspartate Aminotransferase 15 U/L (13-39); Bilirubin,Total 1.2 mg/dl (0.2-1.0); Creatine Kinase < 10 U/L (30-223); Globulin 3.3 gm/dl (2.5-4.0); Magnesium 1.8 mg/dl (1.7-2.4); Total Protein 5.7 gm/dl (6.0-8.3)
[2022-05-15 01:46] LABS: Influenza A virus by PCR Negative (Neg); Influenza B virus by PCR Negative (Neg); RSV by PCR Negative (Neg); SARS CoV2 RNA(COVID-19) Ceph NEGATIVE (Negative)
[2022-05-15] MEDS ORDERED: CEFEPIME 2,000 MG/20 ML VIAL IV STA (02:05)
[2022-05-15] MEDS ORDERED: ACETAMINOPHEN 1,000 MG/100 ML VIAL IV STA (02:06)
--- NOTE | 2022-05-15 05:11 | History & Physical Report ---
Patient seen and examined Agree with history and physical and assessment and plan as outlined in the resident's note Patient presents with neutropenic fever with a white count of 0.46 We will obtain pancultures to determine source Initiate empiric coverage with broad-spectrum antibiotics vancomycin and cefepime Lactate not elevated Continue IV fluids and monitor hemodynamics closely Date of Service May 15, 2022 Assessment & Plan (1) Neutropenic fever: Plan: -WBC 0.46, temperature 38.8 C, tachycardic- meeting SIRS criteria -Unclear source of infection at this time. Normal lactate -BCx, UCx, MRSA nares pending -Neutropenic precautions -Empiric coverage with broad spectrum antibiotics- vancomycin and cefepime -LR at 80 cc/hr ongoing -Tylenol 1000 mg IV PRN for fever control -Repeat labs CBC, CMP, procalcitonin, ESR, CRP -Consider further workup- LP, blake CT imaging (2) Throat pain: Plan: -Symptoms may be secondary to bullous pemphigoid mucosal involvement -Outpatient CT soft tissue/neck on 04/24 -Mild thickening of posterior pharyngeal rawls at level of piriform sinuses -Direct visualization of above may be helpful -Can consider endoscopy once pt's acute illness stabilizes -Magic mouthwash BID, continued as home medication -Chloraseptic PRN -NPO pending speech evaluation- pt can take medications crushed (3) Weakness: Plan: -Chronic deconditioning in setting of multiple medical comorbidities and reduced oral intake -Pt was discharged with home health services as of last hospitalization -PT/OT ordered (4) Bullous pemphigoid: Plan: -Appears to be new diagnosis as of last hospitalization -Methotrexate weekly therapy as outpatient, last took on Saturday 03/11 apparently -Unclear if pt is having acute flare at present. Deferring steroid treatment in setting of neutropenia -Wound cultures ordered -Wound consult placed (5) Thrombocytopenia: Plan: -Plts 113 -No overt ecchymoses on exam or concern for active bleeding -Trend CBC (6) Hyponatremia: Plan: -Na 130 on admission -Likely secondary to poor oral intake -Continue IVF -Trend BMP (7) Elevated troponin: Plan: -Troponin 22 on admission -Pt without chest pain or ACS symptoms at present -Trend to peak (8) Constipation: Plan: -Bowel regimen with Miralax and docusate -KUB ordered (9) Anemia: Plan: -Hgb 9.7, baseline appears around 10-11 -Low suspicion for acute severe bleeding at present (pt's bleeding skin lesions unlikely to cause precipitous drop in Hgb) -FOBT ordered -Trend CBC (10) Ascites due to alcoholic cirrhosis: Plan: -Regular ETOH consumption ongoing, pt not interested in cessation -Continue spironolactone -SBP is possible in context of pt's fever but reassuring abdominal exam -Continue cefepime/vancomycin at present (11) Cardiomyopathy: Plan: -Continue metoprolol, simvastatin -Holding aspirin for thrombocytopenia (12) Depression: Plan: -Continue mirtazapine (13) GERD without esophagitis: Plan: -Pantoprazole 40 [address] IV daily in place of home PO pantoprazole (14) Hypothyroidism (acquired): Plan: -Continue levothyroxine (15) Stage 4 chronic kidney disease due to benign hypertension: Plan: -Baseline Cr appears around 2 -Stable, trend BMP (16) DM (diabetes mellitus): Plan: -A1C 7.4% in 05/03 -Initiate basal insulin + SSI once pt tolerating diet (17) HTN (hypertension): Plan: -BP stable at present -Continue metoprolol (18) Hyperlipidemia: Plan: -Continue simvastatin (19) CHF (congestive heart failure): Plan: -Last echocardiogram 08/30 with EF 70-75% -Pt is clinically hypovolemic, no evidence of acute CHF exacerbation at present -Fluid repletion ongoing but cautiously given CHF history -Monitor volume status, I's and O's (20) BPH (benign prostatic hyperplasia): Plan: -Continue tamsulosin, finasteride (21) Brain mass: Plan: -MRI [facility] 03/2022- extra axial mass of L parietal lobe with dural thickening from frontal lobe to occipital lobe on left, mass could represent aggressive meningioma or hemangiopericytoma or metastasis/primary neoplasm -Tissue sampling recommended -Pt's family expressed wish to repeat MRI while hospitalized Plan STEFI: NPO pending SS evaluation Code status: Full DVT ppx: SCDs, defer chemoprophylaxis with thrombocytopenia Isolation: Neutropenic Dispo: PCU History of Present Illness Chief Complaint: Fever Primary Care Provider: Crystal Camejo, DO 77 yo M with PMH bullous pemphigoid, alcoholic cirrhosis, anemia, depression, GERD, hypothyroidism, CKD4, CAD, HTN, HLD, HFpEF presenting with fever. Pt was recently hospitalized at [facility] 05/02 to 05/05 for hyponatremia, poor oral intake, MALGORZATA and bullous pemphigoid flare. He was treated with Solumedrol transitioned to prednisone. He was started on methotrexate after discharge by dermatology. After discharge, pt continued to feel poorly and oral intake did not recover. He has had throat pain which has greatly limited ability to eat/drink. Pt did see PCP on 05/11 and advised to continue current treatment with oral prednisone, methotrexate weekly and magic mouthwash for his throat pain. His symptoms persisted until he developed fever today at home and was brought to ED by . Pt arrived to ER febrile 38.8 C and tachycardic to 140s. Normotensive. ED labs significant for WBC 0.46, Hgb 9.7, Plt 110, Na 130, Cr 1.71, lactate 1.5, TB 1.2, troponin 22. CBC, CMP, UA otherwise unremarkable. CXR with some b/l opacities but no focal consolidations. Pt given cefepime, Tylenol 1000 mg IV, NSS bolus 1.5L and started on mIVF in ER. On my evaluation, he is largely unable to engage in interview given his difficulty hearing. at bedside states he is primarily suffering from throat pain for the last several days with little to no oral intake. Additionally, he has not had a BM in at least 4+ days. Allergies Allergy/AdvReac Type Severity Reaction Status Date / Time No Known Allergies Allergy Unverified 05/11/22 10:58 Home Medications Medication Instructions Recorded Confirmed Type blood sugar diagnostic (Pythagoras SolarTouch #10 ea 08/11/18 05/11/22 Rx Ultra Blue Test Strip) blood-glucose meter (Pythagoras SolarTouch #1 ea 08/11/18 05/11/22 Rx Ultra2 Meter kit) finasteride 5 mg tablet 5 mg PO DAILY #90 tabs 08/11/18 05/15/22 Rx lancets (ID.meuch UltraSoft #50 ea 08/11/18 05/11/22 Rx Lancets) mirtazapine 15 mg tablet 15 mg PO DAILY #30 tabs 08/11/18 05/15/22 Rx tamsulosin 0.4 mg capsule 0.4 mg PO DAILY #30 caps 12/29/20 05/15/22 Rx aspirin 81 mg tablet,delayed 81 mg PO DAILY 04/28/21 05/15/22 History release (Meseret Low Dose Aspirin) cyclobenzaprine 10 mg tablet 10 mg PO HS PRN muscle spasm 05/31/21 05/15/22 History magnesium oxide 420 mg tablet 420 mg PO DAILY 05/31/21 05/15/22 History psyllium husk 0.52 gram capsule 0.52 g PO DAILY #30 caps 06/02/21 05/15/22 Rx (Daily Fiber) levothyroxine 75 mcg tablet 75 mcg PO DAILY #30 tabs 07/31/21 05/15/22 Rx triamcinolone acetonide 0.1 % 1 applic topical DAILY PRN itching 11/09/21 05/15/22 Rx topical cream #80 grams guaifenesin 400 mg tablet 400 mg PO BID PRN cough #30 tabs 11/10/21 05/15/22 Rx betamethasone dipropionate 0.05 % 1 applic topical BID PRN skin 11/21/21 05/15/22 Rx topical cream irritation #45 grams spironolactone 25 mg tablet 25 mg PO DAILY #90 tabs 12/05/21 05/15/22 Rx levocetirizine 5 mg tablet 5 mg PO DAILY #90 tabs 02/09/22 05/15/22 Rx metoprolol tartrate 25 mg tablet 25 mg PO DAILY 03/21/22 05/15/22 History nystatin 100,000 unit/gram topical 1 applic topical BID #30 grams 03/21/22 05/15/22 Rx ointment simvastatin 10 mg tablet 5 mg PO QPM 03/21/22 05/15/22 History calamine 3 %-zinc oxide 3 %-gauze #2 ea 04/20/22 05/11/22 Rx bandage 4" X 10 yard (Unna Boot Zinc-Calamine) pantoprazole 40 mg tablet,delayed 40 mg PO BID #180 tabs 05/01/22 05/15/22 Rx release folic acid 1 mg tablet 1 mg PO DAILY 05/02/22 05/15/22 History mecobalamin (vitamin B12) 1,000 0 mcg PO DAILY 05/02/22 05/15/22 History mcg chewable tablet (B12 Active) methotrexate sodium 2.5 mg tablet 12.5 mg PO WK 02/22/23 03/07/23 History linagliptin 5 mg tablet (Tradjenta) 5 mg PO DAILY #90 tabs 05/11/22 05/15/22 Rx Past Med/Surg History Medical History Acute hyponatremia Acute kidney injury Acute pain of mouth Alcoholic cirrhosis Anemia Arthritis Ascites due to alcoholic cirrhosis Boil of groin BPH (benign prostatic hyperplasia) CAD (coronary artery disease) Cardiomyopathy CHF (congestive heart failure) Chronic rhinitis Depression DM (diabetes mellitus) GERD without esophagitis Hearing difficulty of both ears History of GI bleed HTN (hypertension) Hyperlipidemia Hypothyroidism (acquired) Insomnia Low magnesium levels Mild cognitive impairment Neuropathy Oropharyngeal dysphagia Peripheral neuropathy Stage 4 chronic kidney disease due to benign hypertension Testicular nodule Vitamin D deficiency Surgical History H/O hand surgery History of back surgery S/P cataract surgery S/P cholecystectomy S/P shoulder surgery Family History Mother Ovarian cancer Denies family history of Prostate cancer Myocardial infarction Breast cancer Colorectal cancer Social History Smoking Status: Never smoker Tobacco Type: Cigarettes Cigarettes Per Day: Uncertain of amt.; Second Hand Exposure: No; Do You Dip or Chew Tobacco: No; Tobacco Cessation Education Requested by Patient: No Hx Alcohol Use: Yes Alcohol type: beer Alcohol Intake Frequency: 4 or More x per/Week Hx Substance Use: No Preferred Language: Slovak Communication Ability: Impaired Visual Impairment: No Limitations Hearing Ability: Use of Hearing Aid Zipper Lining Folder Required: No Beliefs That Will Affect Care: None marital status: Current Living Situation: Spouse current occupational status: retired Other Information That Helps Us Care for You: No Feels Safe at Home: Yes Safety Concerns: Feels Safe At This Time Childhood Exposure to Second-Hand Smoke: Yes Diet Comment: barely eats as per caffeine: No during the past year weight has: remained stable Dental Care, Regularly: No Physical Activity Frequency: Does not Exercise Seatbelt Use: always Sunscreen Use: No Assistive Devices: Cane, Hearing Aid - Bilateral and Walker Assistive Devices Comment: motorized wheelchair Review of Systems Review of Systems: Per HPI Physical Exam Constitutional: + ill appearing and cooperative; + uncomfortable [place] (wears bilateral hearing aids at home) Pt warm to the touch ENMT: Ears: + hearing impairment (b/l hearing aids) Mouth: + oropharynx abnormality (pharyngeal erythema) and + oral mucosal abnormality (multiple sores noted ) Neck: normal visual inspection Respiratory: Slightly diminished breath sounds b/l, no overt crackles or wheezes noted Cardiovascular: Rate/Rhythm: regular rhythm and + tachycardic Heart Sounds: normal S1 and normal S2 Extremities: + edema (trace b/l ) Gastrointestinal (Abdomen): Soft, distended with fluid wave, nontender, no guarding or rebound Skin: Multiple pemphigoid lesions of upper and lower extremities including blistered areas and some excoriated and healing areas, no focal erythema. Blood oozing slightly from some of the lesions. Tender to palpation. Psychiatric: Orientation: alert and oriented to person; + not oriented to place and + not oriented to time Eye Contact: good eye contact Results & Data Results & Data ([facility]) Vital Signs (Past 12 Hours) Vital Signs Temp Pulse Pulse Resp BP BP Pulse Ox 05/15/22 05:03 129 H 19 125/73 99 05/15/22 04:50 126 H 05/15/22 03:38 37.8 C H 127 H 20 124/62 98 05/15/22 02:24 141 H 16 124/64 99 05/15/22 02:01 38.8 C H 05/15/22 01:00 95 05/15/22 00:52 36.1 C L 140 H 20 126/69 95 O2 Del Method 05/15/22 05:03 Room Air 05/15/22 04:50 05/15/22 03:38 Room Air 05/15/22 02:24 Room Air 05/15/22 02:01 05/15/22 01:00 Nasal Cannula 05/15/22 00:52 Room Air Code Status & VTE Plan VTE Prophylaxis Plan VTE Prophylaxis will be ordered: Yes Supervising Physician Co-Signing Physician Notes Patient seen and examined Agree with history and physical and assessment and plan as outlined in the resident's note Patient presents with neutropenic fever with a white count of 0.46 We will obtain pancultures to determine source Initiate empiric coverage with broad-spectrum antibiotics vancomycin and cefepime Lactate not elevated Continue IV fluids and monitor hemodynamics closely Resident Activity Tracking Resident Involvement: Resident Care Provided Care Provided: Adult Hospital Medicine
[2022-05-15] MEDS ORDERED: SOD PHOSPHATE/SOD BIPHOSPHATE ENEMA 132 ML BTL PR PRN ×2 (05:59→06:08)
[2022-05-15] MEDS ORDERED: VANCOMYCIN CONSULT ACTIVE PRN (06:08)
[2022-05-15] MEDS ORDERED: POLYETHYLENE (MIRALAX) 17 GM PACK PO PRN (06:08)
[2022-05-15] MEDS ORDERED: ACETAMINOPHEN 1,000 MG/100 ML VIAL IV PRN (06:08)
[2022-05-15] MEDS ORDERED: CHLORASEPTIC 1.4% SOLN 180 ML BTL MT PRN (06:08)
[2022-05-15] MEDS ORDERED: ONDANSETRON INJ 2 MG/ML 2 ML VIAL IV PRN (06:08)
[2022-05-15] MEDS: LACTATED RINGER'S 1,000 ML IV SCH ×2 (06:32→20:16)
[2022-05-15] MEDS ORDERED: VANCOMYCIN HCL 1,750 MG in SODIUM CHLORIDE 0.9% 500 ML IV ONE (06:45)
[2022-05-15] MEDS ORDERED: LEVOTHYROXINE SODIUM 75 MCG TABLET PO SCH (07:00)
--- NOTE | 2022-05-15 07:23 | XRay Report ---
XR chest 1V portable HISTORY: 77 years-old Male weakness acute weakness COMPARISON: May 02, 2022 TECHNIQUE: AP view of the chest FINDINGS: Cardiac silhouette is enlarged. Atherosclerosis of the aorta. No pneumothorax. Small pleural effusion s with mild left basilar atelectasis. Degenerative changes of the shoulders and spine. IMPRESSION: 1. Cardiomegaly without pulmonary edema. 2. Small pleural effusions with mild left basilar atelectasis. ACT 112: Negative or not required by law. The above report was generated using voice recognition software. It may contain grammatical, syntax o r spelling errors. Electronically signed by: Juan Wilkins M.D. 05/15/2022 7:22 AM
--- NOTE | 2022-05-15 07:59 | Hospitalist Progress Note ---
Date of Service May 15, 2022 Assessment & Plan (1) Neutropenic fever: Plan: -Acute serious risk- meeting SIRS criteria -consider translocation gut bacteria vs skin source with bullous pemphigoid throat pain, out pt CT neck Mild thickening of posterior pharyngeal rawls at level of piriform sinuses symptomatic treatment patient having nosebleeds which was controlled with Afrin -cultures pending -Neutropenic precautions -Empiric coverage with broad spectrum antibiotics- vancomycin and cefepime Bullous pemphigoid, new diagnosis , Methotrexate weekly LD pancytopenia due to chemotherapy, anemia likely secondary to chronic disease - (2) CHF (congestive heart failure): Plan: -Chronic and stable diastolic heart failure Last echocardiogram 08/30 with EF 70- 75% acute elevation of troponin, is low level but likley demand ischemia in setting of illness Continue metoprolol, simvastatin-Holding aspirin for thrombocytopenia Questionable swallowing status we are holding his statin aspirin converting metoprolol to IV (3) Brain mass: Plan: -MRI [facility] 03/2022- extra axial mass of L parietal lobe with dural thickening from frontal lobe to occipital lobe on left, mass could represent aggressive meningioma or hemangiopericytoma or metastasis/primary neoplasm -Tissue sampling recommended -Pt's family expressed wish to repeat MRI while hospitalized MRI is currently being performed (4) DM (diabetes mellitus): Plan: chronic and stable , -A1C 7.4% in 05/03 -Initiate basal insulin + SSI once pt tolerating diet to the n.p.o. status we will reduce basal insulin (5) Stage 4 chronic kidney disease due to benign hypertension: Plan: -Chronic and stable baseline Cr appears around 2 -Stable, trend BMP (6) Anemia: Plan: Chronic unclear if stable-Hgb 9.7, baseline appears around 10-11 anemia of chronic disease -FOBT ordered (7) Ascites due to alcoholic cirrhosis: Plan: -Regular ETOH consumption ongoing, pt not interested in cessation -Continue spironolactone -Continue cefepime/vancomycin at present (8) Depression: Plan: -Chronic and stable continue mirtazapine (9) GERD without esophagitis: Plan: -Chronic and stable patient with swallowing difficulties or pain with swallowing pantoprazole [address] daily in [address] of home PO pantoprazole (10) Hypothyroidism (acquired): Plan: -Continue levothyroxine will convert to IV at this time (11) BPH (benign prostatic hyperplasia): Plan: chronic stable no LUTS -Continue tamsulosin, finasteride Plan Code status: Full DVT ppx: SCDs, defer chemoprophylaxis with thrombocytopenia Admission and Anticipated Discharge Date Admission Date: May 15, 2022 Subjective Patient was pleasantly confused offering no complaints but coughing and spitting up blood. He did have some epistaxis which was controlled with Afrin nasal protocol subsequently has been quiescent through the remainder of the evening. At the time of his speech evaluation was having a nosebleed which caused him to fail his speech evaluation. We will permit him to have some liquids and chips and sips orally but change most of his medications to intravenous Physical Exam Physical Exam: pt is chronically ill Multiple open areas of his skin various stages of depth worsened this is left heel photographs in the wound care nurse section wound care applied today. Previous diagnosis with pemphigoid by his outpatient plaster pattern caster Card exam is regular with a murmur he is tachycardic Lungs are clear diminished at the bases abdomen NABS soft and nontender Results & Data Results & Data ([facility]) Vital Signs (Past 12 Hours) Vital Signs Temp Pulse Pulse Resp BP BP Pulse Ox 05/15/22 06:15 99.0 F 120 H 20 109/69 100 05/15/22 06:08 05/15/22 05:03 129 H 19 125/73 99 05/15/22 04:50 126 H 05/15/22 03:38 100.0 F H 127 H 20 124/62 98 05/15/22 02:24 141 H 16 124/64 99 05/15/22 02:01 101.8 F H 05/15/22 01:00 95 05/15/22 00:52 97.0 F L 140 H 20 126/69 95 O2 Del Method 05/15/22 06:15 Room Air 05/15/22 06:08 Room Air 05/15/22 05:03 Room Air 05/15/22 04:50 05/15/22 03:38 Room Air 05/15/22 02:24 Room Air 05/15/22 02:01 05/15/22 01:00 Nasal Cannula 05/15/22 00:52 Room Air Laboratory Results Reviewed CBC pancytopenic Reviewed chemistry with chronic kidney disease Reviewed [id number] glucoses elevated Inflammatory markers are elevated Procalcitonin is elevated Nasal swabs MRSA Spoke to at the bedside daughter on the phone PG Care Time/CCT Total # of Minutes Spent Total Time Spent with Patient: Total time spent is greater than 50% in coordination of care (as documented) at patient's floor/unit and/or counseling patient: Coding Level of Care Code 16712 SUB INP/OBS CARE 3/50MIN Diagnoses Neutropenic fever D70.9; R50.81 CHF (congestive heart failure) I50.9 Brain mass G93.89 DM (diabetes mellitus) E11.9 Stage 4 chronic kidney disease due to benign hypertension I12.9; N18.4 Anemia D64.9 Ascites due to alcoholic cirrhosis K70.31 Depression F32.9 GERD without esophagitis K21.9 Hypothyroidism (acquired) E03.9 BPH (benign prostatic hyperplasia) N40.0
[2022-05-15 08:00] LABS: Albumin Globulin Ratio 0.7 (0.9-2); Albumin Level 2.1 gm/dl (3.4-5.0); BUN Creatinine Ratio 12.4 (10-20); Bilirubin,Total 1.4 mg/dl (0.2-1.0); C Reactive Protein 26.42 mg/dl (0-0.5); Calcium 7.8 mg/dl (8.5-10.1); Creatinine Clr Calc Pharmacy 36.1 ml/min; Est GFR (Non-African American) 36.2 ml/min; Globulin 3.2 gm/dl (2.5-4.0); Potassium 4.3 mmol/L (3.5-5.1); Total Protein 5.3 gm/dl (6.0-8.3)
[2022-05-15 08:07] LABS: Troponin I High Sensitivity 27.6 pg/ml (0-20)
[2022-05-15 08:43] LABS: Hematocrit (blood only) 24.1 % (42.0-52.0); Hemoglobin 7.9 g/dl (14.0-18.0); Mean Corpuscular Hemoglobin 30.7 pg (25.0-34.0); Mean Corpuscular Hgb Conc 32.8 g/dL (32.0-36.0); Mean Corpuscular Volume 93.8 fL (80.0-100.0); Mean Platelet Volume 9.5 fL (9.4-12.4); Nucleated RBC # (auto) 0.02 K/uL (0-0.12); Nucleated RBC % (auto) 3.2 %; Platelet Count 108 K/uL (130-400); RDW Coefficient of Variation 11.9 % (11.5-14.5); RDW Standard Deviation 40.1 fL (36.4-46.3); Red Blood Count 2.57 M/uL (4.70-6.10); White Blood Count 0.63 K/ul (4.8-10.8)
[2022-05-15 08:55] LABS: ALC (manual) 0.17 K/uL (1.2-3.4); ANC (manual) 0.37 K/uL (1.4-6.5); Dohle Bodies 2+; Echinocytes 2+; Eosinophils # (manual) 0.04 K/uL (0-0.50); Eosinophils % (manual) 7 %; Lymphocytes # (manual) 0.17 K/uL (1.2-3.4); Lymphocytes % (manual) 27 %; Metamyelocytes # (manual) 0.01 K/uL (0-0); Metamyelocytes % (manual) 1 %; Monocytes # (manual) 0.04 K/uL (0.11-0.59); Monocytes % (manual) 7 %; Neutrophils # (manual) 0.37 K/uL (1.40-6.50); Neutrophils % (manual) 58 %; Polychromasia 1+
[2022-05-15] MEDS ORDERED: TAMSULOSIN HCL 0.4 MG CAP PO SCH (09:00)
[2022-05-15] MEDS ORDERED: FOLIC ACID 1 MG TAB PO SCH (09:00)
[2022-05-15] MEDS ORDERED: DOCUSATE SODIUM 100 MG CAP PO SCH ×2 (09:00)
[2022-05-15] MEDS ORDERED: CETIRIZINE HCL 10 MG TABLET PO SCH (09:00)
[2022-05-15] MEDS ORDERED: FINASTERIDE 5 MG TAB PO SCH (09:00)
[2022-05-15] MEDS ORDERED: METOPROLOL TARTRATE 25 MG TAB PO SCH (09:00)
[2022-05-15] MEDS ORDERED: MAGNESIUM OXIDE 400 MG TAB PO SCH (09:00)
[2022-05-15] MEDS ORDERED: SPIRONOLACTONE 25 MG TAB PO SCH (09:00)
[2022-05-15] MEDS ORDERED: POLYETHYLENE (MIRALAX) 17 GM PACK PO SCH ×2 (09:00)
--- NOTE | 2022-05-15 10:27 | Pharmacy Report ---
Pharmacy Vanc AUC Short Note - Date of Service May 15, 2022 - Assessment & Plan Assessment * 77 year old M receiving VANCOMYCIN + CEFEPIME for treatment of neutropenic fever, possible sources (GI, EENT, UTI, SSTI, pulm) * Pertinent microbiologic data includes: + RSV resp serology, + MRSA Nasal Swab, sputum cx pending, blood and urine cx's also pending * ANC 370, Tmax 38.8 Plan Vancomycin * AUC/WALE is the preferred PK/PD target for vancomycin * AUC guided dosing is effective and associated with decreased risk of nephrotoxicity compared to traditional trough targets * Loading dose: 1750mg * Maint dose: 1000mg Q 24 hrs (to begin ~10-12 hours after loading dose) * This maint dose is predicted to achieve target AUC/WALE of 400-600 mg/L.hr and may be associated with a 13 % risk of nephrotoxicity * Will check trough level with 2nd or 3rd dose if therapy to continue Pharmacy will continue to follow and will adjust dose/frequency as necessary. Thank you.
[2022-05-15] MEDS ORDERED: OXYMETAZOLINE 0.05% 30 ML BTL ONE (12:09)
[2022-05-15] MEDS: MIRTAZAPINE TAB 15 MG TAB PO SCH (12:25)
[2022-05-15] MEDS: FIRST - Mouthwash BLM 119 ML PO SCH ×2 (12:25→20:18)
[2022-05-15] MEDS: PANTOprazole 40 MG in SYRINGE 0 ML IV SCH (12:43)
--- NOTE | 2022-05-15 12:50 | Electrocardiogram Report ---
Test Reason : Blood Pressure : / mmHG Vent. Rate : 138 BPM Atrial Rate : 138 BPM P-R Int : 166 ms QRS Dur : 068 ms QT Int : 264 ms P-R-T Axes : 050 197 182 degrees QTc Int : 399 ms Poor data quality, interpretation may be adversely affected Probable Sinus tachycardia with Premature supraventricular complexes Low voltage QRS Abnormal ECG When compared with ECG of 31-DEC-2013 21:17, Artifact precludes comparison Confirmed by Dean Hernandez ([id number]) on 05/15/2022 12:50:27 PM Referred By: REFERRED SELF Confirmed By:Dean Hernandez
[2022-05-15] MEDS: CEFEPIME 2,000 MG in SYRINGE 0 ML IV SCH (13:57)
[2022-05-15] MEDS ORDERED: GADOBUTROL 65ML VIAL IV ONE (16:58)
[2022-05-15] MEDS ORDERED: GLUCOSE 10 TAB/TUBE PO PRN (17:14)
[2022-05-15] MEDS ORDERED: CARBOHYDRATES FOR HYPOGLYCEMIA PO PRN (17:14)
[2022-05-15] MEDS ORDERED: GLUCOSE 40% GEL 15 GM TUBE PO PRN (17:14)
[2022-05-15] MEDS ORDERED: DEXTROSE 50% 50 ML SYRINGE IV PRN (17:14)
[2022-05-15] MEDS ORDERED: GLUCAGON FOR INJ 1 MG VIAL SQ PRN (17:14)
[2022-05-15] MEDS ORDERED: SODIUM CHLORIDE 0.65% NA SOLN 45 ML (OCEAN) PRN (17:17)
--- NOTE | 2022-05-15 17:17 | Magnetic Resonance Report ---
MRI OF THE BRAIN COMBO CLINICAL HISTORY: Intracranial mass. COMPARISON STUDY: No priors TECHNIQUE: MRI of the brain was performed utilizing various T1 and T2-weighted sequences in the axial , sagittal, and coronal planes. Contrast-enhanced sequences were acquired following the administratio n of 8 cc of Gadavist. The examination is compromised by motion artifact. FINDINGS: Brain parenchyma: There is age-related complete change noting mild subcortical and periventricular mi croangiopathic disease. There is no hemorrhage or mass effect. There is no restricted diffusion to eckert ggest acute ischemia. There is an extra-axial mass lesion along the left temporal convexity. The larg est nodular component measures 1.7 x 2.0 x 1.1 cm as seen on coronal postcontrast image #18. There is associated pachymeningeal thickening and enhancement along left convexity. There is no clear invasio n of the underlying brain parenchyma. This lesion appears to extend through the convexity in the subc utaneous soft tissues. The soft tissue component measures up to 3 cm in length. No additional enhanci ng intracranial lesion is seen. De León-white matter differentiation is preserved. No extra-axial fluid collection is seen. Mineralization is noted in the basal ganglia. The cerebellar tonsils are normal i n configuration. Ventricles, sulci, and cisterns: Prominent secondary to involutional change. Pituitary and sella: Unremarkable. Intracranial vasculature: Normal flow voids are maintained at the skull base. Orbits: The bony orbits are grossly intact. Orbital contents are normal in appearance noting bilatera l ocular lens implants. Sinuses and mastoids: Clear. Calvarium: As noted above, the extra-axial lesion along the left temporal convexity. Growth through t he calvarium in the scalp. No additional destructive calvarial lesion is suggested. Cervical cord: Partially visualized cervical spinal cord is normal in morphology and signal intensity . IMPRESSION: 1. There is an extra-axial enhancing mass lesion along the left temporal convexity as above. There is significant associated pachymeningeal thickening and enhancement along the left convexity, and the l esion appears to extend through the calvarium into the scalp. This is pathologically indeterminate, a nd neoplasm is the diagnosis of exclusion. 2. There is no clear invasion of the underlying brain parenchyma. 3. No additional enhancing intracranial lesion is identified. 4. There is no hemorrhage, mass effect, or evidence of acute ischemia. ACT 112: Negative or not required by law. Electronically signed by: Dileep Butterfield M.D. 05/15/2022 5:15 PM
[2022-05-15] MEDS: METOPROLOL TARTRATE 1 MG/ML VIAL IV SCH ×2 (17:43→23:40)
[2022-05-15 18:13] LABS: A calco-baum cmplx NotReported Not Detected (NotDetected); Bact fragilis Not Reported Not Detected (NotDetected); C auris Not Reported Not Detected (NotDetected); Calbicans Not Reported Not Detected (NotDetected); Candida glabrata Not Reported Not Detected (NotDetected); Candida krusei Not Reported Not Detected (NotDetected); Cneoformans/gatti Not Reported Not Detected (NotDetected); Cparapsilosis Not Reported Not Detected (NotDetected); Ctropicalis Not Reported Not Detected (NotDetected); E cloacae compx Not Reported Not Detected (NotDetected); Efaecalis Not Reported Not Detected (NotDetected); Efaecium Not Reported Not Detected (NotDetected); Enterobacterales Not Reported Not Detected (NotDetected); Escherichia coli Not Reported Not Detected (NotDetected); H influenzae Not Reported Not Detected (NotDetected); K aerogenes Not Reported Not Detected (NotDetected); Koxytoca Not Reported Not Detected (NotDetected); Kpneumoniae grp Not Reported Not Detected (NotDetected); Lmonocyt Not Reported Not Detected (NotDetected); N meningitidis Not Reported Not Detected (NotDetected); P aeruginosa Not Reported Not Detected (NotDetected); Proteus spp Not Reported Not Detected (NotDetected); Salmonella spp Not Reported Not Detected (NotDetected); Smarcescens Not Reported Not Detected (NotDetected); Staph lugdunensis Not Reported Not Detected (NotDetected); Staph spp. Not Reported DETECTED (NotDetected); Staphaureus Not Reported DETECTED (NotDetected); Staphepi Not Reported Not Detected (NotDetected); Staphylococcus spp. DETECTED (NotDetected); Stenmaltophilia Not Reported Not Detected (NotDetected); Strep agal(GrpB) Not Reported Not Detected (NotDetected); Strep pneum Not Reported Not Detected (NotDetected); Strep pyog (GrpA) Not Reported Not Detected (NotDetected); Strep spp Not Reported Not Detected (NotDetected)
[2022-05-15 19:17] LABS: mecAC+MREJ Resistant Gene MRSA DETECTED (NotDetected)
[2022-05-15] MEDS: VANCOMYCIN HCL 1,000 MG in SODIUM CHLORIDE 0.9% 250 ML IV SCH (20:16)
[2022-05-15] MEDS: SIMVASTATIN 5 MG TAB PO SCH (20:19)
[2022-05-15] MEDS: INSULIN ASPART PER UNIT SC SCH (23:41)
[2022-05-16] MEDS: CEFEPIME 2,000 MG in SYRINGE 0 ML IV SCH ×2 (02:24→13:08)
[2022-05-16] MEDS: METOPROLOL TARTRATE 1 MG/ML VIAL IV SCH ×4 (05:14→23:48)
[2022-05-16 06:34] LABS: Creatinine Clr Calc Pharmacy 41.2 ml/min; Est GFR (African American) 49.3 ml/min; Est GFR (Non-African American) 42.5 ml/min
[2022-05-16] MEDS: INSULIN ASPART PER UNIT SC SCH ×3 (06:38→18:28)
[2022-05-16] MEDS ORDERED: SODIUM CHLORIDE 0.9% 1000ML 1,000 ML IV SCH (07:45)
[2022-05-16 08:34] LABS: Albumin Globulin Ratio 0.7 (0.9-2); BUN Creatinine Ratio 13.4 (10-20); Bilirubin,Total 0.7 mg/dl (0.2-1.0); Calcium 7.9 mg/dl (8.5-10.1); Creatinine Clr Calc Pharmacy 40.7 ml/min; Est GFR (African American) 48.6 ml/min; Est GFR (Non-African American) 41.9 ml/min; Globulin 2.9 gm/dl (2.5-4.0); Total Protein 4.9 gm/dl (6.0-8.3)
[2022-05-16 08:45] LABS: Hematocrit (blood only) 23.5 % (42.0-52.0); Hemoglobin 7.7 g/dl (14.0-18.0); Mean Corpuscular Hemoglobin 30.9 pg (25.0-34.0); Mean Corpuscular Hgb Conc 32.8 g/dL (32.0-36.0); Mean Corpuscular Volume 94.4 fL (80.0-100.0); Platelet Count 81 K/uL (130-400); RDW Coefficient of Variation 12.4 % (11.5-14.5); RDW Standard Deviation 42.4 fL (36.4-46.3); Red Blood Count 2.49 M/uL (4.70-6.10); White Blood Count 1.03 K/ul (4.8-10.8)
[2022-05-16 08:47] LABS: Polychromasia 1+
[2022-05-16] MEDS: LACTATED RINGER'S 1,000 ML IV SCH (08:59)
[2022-05-16] MEDS: HYDROCORTISONE SOD 50 MG in SYRINGE 0 ML IV SCH ×3 (09:00→23:48)
[2022-05-16] MEDS ORDERED: LEVOTHYROXINE SODIUM 50 MCG in SYRINGE 0 ML IV SCH (09:00)
[2022-05-16] MEDS: FIRST - Mouthwash BLM 119 ML PO SCH ×2 (09:00→19:16)
[2022-05-16] MEDS: MIRTAZAPINE TAB 15 MG TAB PO SCH (09:01)
[2022-05-16 09:16] LABS: Eosinophils # (auto) 0.23 K/uL (0-0.50); Eosinophils % (auto) 22.3 %; Lymphocytes % (auto) 19.4 %; Monocytes % (auto) 9.7 %; Neutrophils % (auto) 48.6 %
[2022-05-16] MEDS: PANTOprazole 40 MG in SYRINGE 0 ML IV SCH (10:39)
[2022-05-16] MEDS ORDERED: DEXTROSE 10% 1,000 ML IV PRN (11:35)
[2022-05-16] MEDS ORDERED: TPN/PPN CONSULT PHARMACY SCH (11:46)
[2022-05-16] MEDS ORDERED: Nursing to Pharmacy Communication SCH (12:30)
[2022-05-16 12:35] LABS: Hematocrit (blood only) 26.4 % (42.0-52.0); Hemoglobin 8.6 g/dl (14.0-18.0); Mean Corpuscular Hemoglobin 30.6 pg (25.0-34.0); Mean Corpuscular Hgb Conc 32.6 g/dL (32.0-36.0); Mean Platelet Volume 9.7 fL (9.4-12.4); Platelet Count 71 K/uL (130-400); RDW Coefficient of Variation 12.5 % (11.5-14.5); RDW Standard Deviation 42.4 fL (36.4-46.3); Red Blood Count 2.81 M/uL (4.70-6.10); White Blood Count 0.82 K/ul (4.8-10.8)
[2022-05-16 12:40] LABS: Bilirubin,Total 0.7 mg/dl (0.2-1.0); Magnesium 1.9 mg/dl (1.7-2.4); Phosphorus 1.9 mg/dl (2.5-4.9)
[2022-05-16] MEDS ORDERED: SODIUM PHOSPHATE 21 MMOL in SODIUM CHLORIDE 0.9% 500 ML IV ONE (13:45)
[2022-05-16] MEDS ORDERED: SODIUM CHLORIDE 0.9% 250 ML IV PRN (14:09)
--- NOTE | 2022-05-16 14:53 | Pharmacy Report ---
Pharmacy PN Initial Consult - Date of Service May 16, 2022 - Scope Pharmacy has been consulted to manage parenteral nutrition orders and order appropriate labs. As part of the Nutrition Support Team guidelines, pharmacy will work in conjunction with dietary when determining the patients caloric needs. - Subjective The patient is a 77 year old M admitted on 05/15/22 05:09 for long standing poor PO intake leading to significant weight loss over the last year. PO intake impeded by difficulty swallowing and pain on swallowing. Pertinent PMH: bullous pemphigoid oropharyngeal dysphagia alcoholic cirrhosis with ascites CHF T2DM CKD4 hyperlipidemia hypothyroidism vit D deficiency - Objective Height: 5 ft 10 in Weight: 76 kg Diet: NPO Vascular Access:: peripheral Intake & Output (Last 24Hrs): Intake & Output 05/14/22 05/15/22 05/16/22 05/17/22 06:59 06:59 06:59 06:59 Intake Total 1262.5 / 1262.5 1270 / 1270 1806.667 / 1806.667 Output Total 800 / 800 Balance 1262.5 / 1262.5 470 / 470 1806.667 / 1806.667 Weight 80 kg 76 kg 76 kg Laboratory Data (Last 24 Hrs):: 05/16/22 05/16/22 05/16/22 05:39 05:43 11:59 Sodium 136 Potassium 4.0 Chloride 107 Carbon Dioxide 23 BUN 21 Creatinine 1.55 H 1.57 H Glucose 97 Calcium 7.9 L Phosphorus 1.9 L Magnesium 1.9 Total Bilirubin 0.7 D 0.7 AST 7 L 7 L ALT 10 Alkaline Phosphatase 62 69 Albumin 2.0 L Triglycerides 102 Recent Pertinent Medications:: FIRST BLM mouthwash Vancomycin IV Cefepime IV Fluconazole IV Acyclovir IV Pantoprazole IV Hydrocortisone IV Prednisone PO Novolog SQ L-thyroxine IV Nutrition Assessment:: Please refer to the Notes section of the EMR for the most recent sr. social media & mobile manager note. - Assessment Patient to start PPN today due to ongoing inability to meet nutritional needs and resulting weight loss. Patient was admitted for febrile neutropenia. MRSA currently growing in BLCXs. Provider wishing to use PPN as central line placement not recommended due to bacteremia. Patient does have significant risk factors for volume overload and e-lyte abnormalities. Consulted Hospitalist to confirm a PPN infusion of up to 80cc/hr may be required to provide initial caloric needs - provider agreed this would be acceptable based upon today's assessment. Maint IVF (LR) will be d/c'd when first bag of PPN hung. Labs and E-lytes reviewed. Hypophosphatemia repleted. Labs ordered for tomorrow. BSGs will be checked Q 6hrs due to dextrose load of PPN bag and ongoing IV+PO steroids. Insulin will be added to 1st bag in conservative dose ~1 unit per 10 grams carbs. - Plan For day 1 of PN administration, the following will be ordered: Macronutrients Amino acids 71 grams/day Dextrose 84 grams/day Lipids 50 grams/day Micronutrients Combined electrolytes 40 mL - contains 35 mEq Na, 20 meq K, 4.5 mEq Ca, 5 mEq Mg, 35 mEq Cl, 29.5 mEq acetate per 20 mL Sodium phosphate 0 MMol Sodium chloride 0 mEq Sodium acetate 0 mEq Potassium phosphate 21 mMol Potassium chloride 0 mEq Potassium acetate 0 mEq Magnesium sulfate 0 mEq Calcium gluconate 0 mEq Multivitamins 10 mL Trace Elements 1 mL Additional additives: Regular insulin 8 units, Thiamine 100mg Total volume 1739 mL to be infused over 24 hrs will provide 1071.2 kcal/day (~14 kcal/kg/day) Final osmolarity 825 mOsm/L (maximum for PPN is 900 mOsm/L) Labs to be ordered per PN order protocol Pharmacy will follow and adjust parenteral nutrition orders on a daily basis. Thank you.
[2022-05-16] MEDS: ACYCLOVIR SOD 700 MG in DEXTROSE 5% 250 ML IV SCH (15:05)
[2022-05-16] MEDS ORDERED: PERIPHERAL TPN IV SCH (16:00)
[2022-05-16] MEDS ORDERED: [UNRECOGNIZED DRUG - OTHER] IV SCH (16:00)
--- NOTE | 2022-05-16 16:20 | Hospitalist Progress Note ---
Date of Service May 16, 2022 Assessment & Plan (1) Neutropenic fever: Plan: -Acute serious risk- meeting sepsis criteria on presentation now resolved -consider skin source with bullous pemphigoid, preliminary is Gr + chains pending TTE, ID evaluatiopn throat pain, out pt CT neck Mild thickening of posterior pharyngeal rawls at level of piriform sinuses symptomatic treatment patient having nosebleeds which was controlled with Afrin given pancytopenia start antivirals and antifungals -cultures final id pending -Neutropenic precautions -Empiric coverage with broad spectrum antibiotics- vancomycin and cefepime acyclovir and diflucan Bullous pemphigoid, new diagnosis ,methotrexate held, on stress steroids with lower bp on presentation pancytopenia due to chemotherapy, anemia likely secondary to chronic disease, hgb 7.7 consented for transfusion 05/16/22 - (2) CHF (congestive heart failure): Plan: -Chronic and stable diastolic heart failure Last echocardiogram 08/30 with EF 70-75% acute elevation of troponin, is low level but likley demand ischemia in setting of illness Continue metoprolol, simvastatin-Holding aspirin for thrombocytopenia Questionable swallowing status we are holding his statin aspirin converting metoprolol to IV (3) Brain mass: Plan: -MRI [facility] 03/2022- extra axial mass of L parietal lobe with dural thickening from frontal lobe to occipital lobe on left, 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 This is pathologically indeterminate, and neoplasm is the diagnosis of exclusion. [place] Mold Carrier [place] but took a phone call 05/16/2022. 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 Apically does not bleed significantly but he is pancytopenic which may institute that. Subsequently we are looking to try to see if we can get a biopsy of this at outside facility. I phoned both [facility] and [facility]. I was initially denied at [facility] for possible transfer [facility] is waiting for callback from neurosurgery. (4) DM (diabetes mellitus): Plan: chronic and stable , -A1C 7.4% in 05/03 -Initiate basal insulin + SSI once pt tolerating diet to the n.p.o. status we will reduce basal insulin (5) Stage 4 chronic kidney disease due to benign hypertension: Plan: -Chronic and stable baseline Cr appears around 2 -Stable, trend BMP (6) Anemia: Plan: Chronic unclear if stable-Hgb 9.7, baseline appears around 10-11 anemia of chronic disease -Possibly of acute blood loss anemia from normal coastal bleeding. Patient transfused 2 units packed red blood cells on protein pump inhibitor (7) Ascites due to alcoholic cirrhosis: Plan: -Regular ETOH consumption ongoing, pt not interested in cessation -Continue spironolactone -Continue cefepime/vancomycin at present (8) Depression: Plan: -Chronic and stable continue mirtazapine (9) GERD without esophagitis: Plan: -Chronic and stable patient with swallowing difficulties or pain with swallowing pantoprazole 40 mg IV daily in place of home PO pantoprazole (10) Hypothyroidism (acquired): Plan: -Continue levothyroxine will convert to IV at this time (11) BPH (benign prostatic hyperplasia): Plan: chronic stable no LUTS -Continue tamsulosin, finasteride Plan Code status: Full DVT ppx: SCDs, defer chemoprophylaxis with thrombocytopenia Admission and Anticipated Discharge Date Admission Date: May 15, 2022 Subjective Patient was pleasantly confused very sore mouth and coughing and spitting up blood. He did have some epistaxis which was controlled with Afrin nasal protocol 05/16/22 speech evaluation failed x2 and now NPO. cannot even tolerate sips or chips, mouth is more crusted today Physical Exam Physical Exam: pt is chronically ill Multiple open areas of his skin various stages of depth worsened this is left heel photographs in the wound care nurse section wound care applied today. Previous diagnosis with pemphigoid by his outpatient habilitation specialist oral lesions are crusted but not with visable ulcers, vesicles or thrush appearing Card exam is regular with a murmur he is tachycardic Lungs are clear diminished at the bases abdomen NABS soft and nontender Results & Data Results & Data ([facility]) Vital Signs (Past 12 Hours) Vital Signs Temp Pulse Pulse Resp BP BP Pulse Ox 05/16/22 12:25 128 H 05/16/22 11:07 97.9 F 121 H 21 116/74 98 05/16/22 10:30 122 H 05/16/22 07:31 98.1 F 123 H 20 103/77 98 05/16/22 05:14 126 H 132/78 O2 Del Method 05/16/22 12:25 05/16/22 11:07 Room Air 05/16/22 10:30 05/16/22 07:31 Room Air 05/16/22 05:14 Laboratory Results review cbc review prp review blood cultures PG Care Time/CCT Total # of Minutes Spent Total Time Spent with Patient: Total time spent is greater than 50% in coordination of care (as documented) at patient's floor/unit and/or counseling patient: Coding Level of Care Code 21663 SUB INP/OBS CARE 3/50MIN Diagnoses Neutropenic fever D70.9; R50.81 CHF (congestive heart failure) I50.9 Brain mass G93.89 DM (diabetes mellitus) E11.9 Stage 4 chronic kidney disease due to benign hypertension I12.9; N18.4 Anemia D64.9 Ascites due to alcoholic cirrhosis K70.31 Depression F32.9 GERD without esophagitis K21.9 Hypothyroidism (acquired) E03.9 BPH (benign prostatic hyperplasia) N40.0
[2022-05-16] MEDS: SIMVASTATIN 5 MG TAB PO SCH (19:18)
[2022-05-16] MEDS ORDERED: VANCOMYCIN LEVEL ONE (20:30)
[2022-05-16] MEDS ORDERED: FLUCONAZOLE 100 MG/50 ML BAG IV SCH (21:00)
[2022-05-16 21:11] LABS: Hematocrit (blood only) 25.7 % (42.0-52.0); Hemoglobin 8.7 g/dl (14.0-18.0)
[2022-05-16] MEDS: VANCOMYCIN HCL 1,000 MG in SODIUM CHLORIDE 0.9% 250 ML IV SCH (22:22)
[2022-05-16] MEDS: FLUCONAZOLE 200 MG/100 ML BAG IV SCH (23:49)
[2022-05-17] MEDS: FLUCONAZOLE 200 MG/100 ML BAG IV SCH ×3 (00:49→22:36)
[2022-05-17] MEDS: CEFEPIME 2,000 MG in SYRINGE 0 ML IV SCH ×2 (01:54→14:56)
[2022-05-17] MEDS: ACYCLOVIR SOD 700 MG in DEXTROSE 5% 250 ML IV SCH ×2 (02:02→14:56)
[2022-05-17] MEDS: INSULIN ASPART PER UNIT SC SCH ×4 (06:02→18:08)
[2022-05-17] MEDS: METOPROLOL TARTRATE 1 MG/ML VIAL IV SCH ×3 (06:03→18:37)
[2022-05-17 07:09] LABS: BUN Creatinine Ratio 20.2 (10-20); Calcium 7.5 mg/dl (8.5-10.1); Creatinine Clr Calc Pharmacy 51.5 ml/min; Est GFR (African American) 64.6 ml/min; Est GFR (Non-African American) 55.7 ml/min; Magnesium 1.9 mg/dl (1.7-2.4); Phosphorus 2.8 mg/dl (2.5-4.9)
[2022-05-17 07:27] LABS: Hematocrit (blood only) 27.5 % (42.0-52.0); Hemoglobin 9.4 g/dl (14.0-18.0); Mean Corpuscular Hemoglobin 30.9 pg (25.0-34.0); Mean Corpuscular Hgb Conc 34.2 g/dL (32.0-36.0); Mean Corpuscular Volume 90.5 fL (80.0-100.0); Mean Platelet Volume 10.7 fL (9.4-12.4); Platelet Count 79 K/uL (130-400); RDW Coefficient of Variation 12.6 % (11.5-14.5); RDW Standard Deviation 41.3 fL (36.4-46.3); Red Blood Count 3.04 M/uL (4.70-6.10); White Blood Count 0.92 K/ul (4.8-10.8)
[2022-05-17 07:30] LABS: ALC (manual) 0.07 K/uL (1.2-3.4); ANC (manual) 0.73 K/uL (1.4-6.5); Dohle Bodies 2+; Echinocytes 3+; Eosinophils # (manual) 0.02 K/uL (0-0.50); Eosinophils % (manual) 2 %; Lymphocytes # (manual) 0.07 K/uL (1.2-3.4); Lymphocytes % (manual) 8 %; Monocytes % (manual) 11 %; Myelocytes # (manual) 0.01 K/uL (0-0); Myelocytes % (manual) 1 %; Neutrophils # (manual) 0.73 K/uL (1.40-6.50); Neutrophils % (manual) 79 %; Polychromasia 1+; Toxic Granulation 2+
[2022-05-17] MEDS: HYDROCORTISONE SOD 50 MG in SYRINGE 0 ML IV SCH (09:11)
[2022-05-17] MEDS: FIRST - Mouthwash BLM 119 ML PO SCH ×2 (09:12→21:35)
[2022-05-17] MEDS: predniSONE 20 MG TAB PO SCH (09:12)
[2022-05-17] MEDS: MIRTAZAPINE TAB 15 MG TAB PO SCH (09:12)
--- NOTE | 2022-05-17 10:11 | XCELERA ---
[id number]
--- NOTE | 2022-05-17 10:49 | Pharmacy Report ---
Pharmacy Vanc AUC Short Note - Date of Service May 17, 2022 - Assessment & Plan Assessment * 77 year old M receiving VANCOMYCIN + CEFEPIME + FLUCONAZOLE + ACYCLOVIR for treatment of neutropenic fever, likely from SSTI +/- EENT * Pertinent microbiologic data includes: + RSV resp serology, + MRSA Nasal Swab, both bottles of 1 BLCX set are growing staph aureus (OF NOTE: ONE BOTTLE REPORTS MSSA, THE SECOND BOTTLE CONTAINS STAPH AUREUS BUT SENSITIVITIES ARE STILL PENDING; BLOOD BIOFIRE DID DETECT MRSA); sputum cx contaminated (no report to follow), urine cx no growth * Repeat BLCXs drawn 05/16 * ANC 370 and Tmax 38.8 on admit; ANC now 500 (05/16) and afebrile x 24 hrs * Renal fxn continues to improve SCr 1.8-->1.6-->1.24 Plan Vancomycin * AUC/WALE is the preferred PK/PD target for vancomycin * AUC guided dosing is effective and associated with decreased risk of nephr otoxicity compared to traditional trough targets * Trough level drawn last evening = 10.6; level was drawn at the appropriate time, prior doses hung per schedule * Will change maint dose to 1500mg IV Q 24 hrs, with next dose due at 1200 today. This regimen is predicted to achieve target AUC/WALE of 400-600 mg/L.hr and may be associated with a 12 % risk of nephrotoxicity * Will check trough level with 2nd or 3rd dose if therapy to continue Pharmacy will continue to follow and will adjust dose/frequency as necessary. Thank you.
--- NOTE | 2022-05-17 11:38 | Pharmacy Report ---
PHA: Parenteral Nutrition Con - Date of Service May 17, 2022 - Scope Pharmacy was consulted on 05/16 to manage parenteral nutrition orders for this patient. - Subjective The patient is currently on day 2 of peripheral parenteral nutrition for prolonged inadequate PO intake, significant weight loss over last year, ongoing dysphagia and painful swallowing. - Objective Height: 5 ft 10 in Weight: 79.5 kg Diet: NPO Vascular Access:: peripheral Intake & Output (24hrs):: Intake & Output 05/15/22 05/16/22 05/17/22 05/18/22 06:59 06:59 06:59 06:59 Intake Total 1262.5 / 1262.5 1270 / 1270 3882.534 / 3882.534 Output Total 800 / 800 600 / 600 Balance 1262.5 / 1262.5 470 / 470 3282.534 / 3282.534 Weight 80 kg 76 kg 79.5 kg Additional Fluid Losses/Gains:: Receiving multiple IV antimicrobials: vancomycin, cefepime, acyclovir, fluconazole Laboratory Data (Last 24 Hr):: 05/16/22 05/17/22 11:59 06:10 Sodium 135 L Potassium 4.0 Chloride 109 H Carbon Dioxide 19 L BUN 25 H Creatinine 1.24 D Glucose 241 H Calcium 7.5 L Phosphorus 1.9 L 2.8 Magnesium 1.9 1.9 Total Bilirubin 0.7 AST 7 L Alkaline Phosphatase 69 Triglycerides 102 Recent Pertinent Medications:: FIRST mouthwash BLM L-thyroxine IV Pantoprazole IV Prednisone PO Multiple IV antimicrobials (see above) Nutrition Assessment:: Please refer to the Notes section of the EMR for the most recent service line bus cleaner note. - Assessment Patient tolerating PPN thus far. No issues with IV site per RN. No fluid overload concerns per software educator. Hospitalist notified of today's plan to continue PPN which will provide ~1800mL fluid/day. Also advised provider that if patient's fluid needs are greater than 1800mL/day a supplemental maint IVF order will be required as we cannot alter the fluid content of Clinimix PPN without altering the macronutrients as well. E-lytes reviewed. No supplementation required this AM. Patient does appear to be developing a NAGMA. Will increase acetate salts and reduce chloride content. Glycemic control has been worsening. Will add more insulin to next bag of PPN and maintain same dextrose content given pt's bacteremia and need for tight glycemic control. - Plan For day 2 of PN administration, the following will be ordered: Macronutrients Amino acids 71 grams/day Dextrose 84 grams/day Lipids 50 grams/day Micronutrients Combined electrolytes 0 mL - contains 35 mEq Na, 20 meq K, 4.5 mEq Ca, 5 mEq Mg, 35 mEq Cl, 29.5 mEq acetate per 20 mL Sodium phosphate 0 MMol Sodium chloride 0 mEq Sodium acetate 70 mEq Potassium phosphate 21 mMol Potassium chloride 0 mEq Potassium acetate 40 mEq Magnesium sulfate 12.18 mEq Calcium gluconate 9.3 mEq Multivitamins 10 mL Trace Elements 1 mL Additional additives: Regular insulin 20 units, Thiamine 100mg, Folic Acid 1mg Total volume 1777.4 mL to be infused over 24 hrs will provide 1071.2 kcal/day Final osmolarity 806 mOsm/L (maximum for PPN is 900 mOsm/L) Labs, as indicated, will be ordered per protocol Pharmacy will continue to follow and adjust parenteral nutrition orders on a daily basis. Thank you for allowing us to participate in the care of this patient.
[2022-05-17] MEDS: PANTOprazole 40 MG in SYRINGE 0 ML IV SCH (11:47)
[2022-05-17] MEDS ORDERED: VANCOMYCIN HCL 1,500 MG in SODIUM CHLORIDE 0.9% 500 ML IV SCH (12:00)
[2022-05-17 13:22] LABS: Iron 25 mcg/dl (35-175); Total Iron Binding Cap Calc 100 mcg/dl (250-450); Transferrin (FE) Percent Satur 25 % (20-50); Unsaturated Iron Binding Cap 75 mcg/dl (155-355)
--- NOTE | 2022-05-17 14:04 | Infectious Disease Consult ---
Date of Consultation May 17, 2022 Assessment & Plan (1) Neutropenic fever: 77 year old male with h/o bullous pemphigoid recently started on methotrexate, DM, CHF, who was admitted to [facility] on 05/15 with difficulty swallowing, cough. ID consulted for staph aureus bacteremia. Seen in [place] ER with diffuse blistering rash on Mar 29 - noted rash started 3 weeks prior to this and started on hands although patient thinks it started on his b/l lower extremities with me today. He was ultimately diagnosed with bullous pemphigoid and started on Methotrexate. His first dose was 05/02 then 05/09. Pt was recently hospitalized at [facility] 05/02 to 05/05 for hyponatremia, poor oral intake, MALGORZATA and bullous pemphigoid flare. His states his oral lesions began about 1 month ago. He has trouble swallowing since. In the ED, he was febrile 38.8 C and tachycardic to 140s. Normotensive. ED labs significant for WBC 0.46 (notably WBC 7.89 on 05/05) Hgb 9.7, Plt 110, Na 130, Cr 1.71, lactate 1.5, TB 1.2, troponin 22. CBC, CMP, UA otherwise unremarkable. CXR with some b/l opacities but no focal consolidations. 05/15 Blood cultures are growing MSSA 2/4 bottles. Repeat blood cultures in lab. Discussion: I suspect neutropenia is d/t MTX use. He is growing MSSA bacteria in blood source for this either lungs or skin at this time. CXR does not show diffuse consolidation and he is on room air. Given his multiple open lesions suspect he translocated from the skin. Repeat blood cultures q24-48 hours. I would ask heme/onc to weigh in on pancytopemia. His oral lesions are difficult to see and he has been started on Acycylovir and Diflucan IV which is appropriate. (2) Bullous pemphigoid: (3) Bacteremia due to Staphylococcus: Plan -MSSA bacteremia, favor narrowing to Cefazolin 2G IV TID and dcing Vanco/Cefepime -CW Diflucan 400mg IV daily and Acyclovir -2DE done, unsafe to do MAK at this time -Patient would benefit from both Heme/Onc and Derm evaluation in house -Continue to monitor for s/s MSSA lesions in bone/joints -Check blood cultures tomorrow -Neutropenic precautions Thank you, ID will follow Janneth Post MD Infectious Diseases Consultation Information Consultation was provided via telemedicine using two-way real-time interactive telecommunication between the patient and the telemedicine provider. For the duration of the visit, the provider was performing the assessment from a different facility than the patient. This includesuse of bluetooth stethoscope forauscultationperformed by the telepresenter that the telemedicine provider can hear if described in the physical exam. Survey Researcher contact information: Please call [facility] . (Phone Number For Physician Use Only) After establishing a telemedicine visit, patient was: Patient was verified with two unique identifiers, Patient/authorized rep acknowledged consent and understanding and Gave permission to continue telehealth session Time Spent with Patient: Initial => 55 min History of Present Illness Reason for Consultation: Staph bacteremia, neutropenia Requesting Physician: Justen Everett Attending Physician: Justen Everett History of Present Illness 77 year old male with h/o bullous pemphigoid recently started on methotrexate, DM, CHF, who was admitted to [facility] on 05/15 with difficulty swallowing, cough. ID consulted for staph aureus bacteremia. Seen in [place] ER with diffuse blistering rash on Mar 29 - noted rash started 3 weeks prior to this and started on hands although patient thinks it started on his b/l lower extremities with me today. He was ultimately diagnosed with bullous pemphigoid and started on Methotrexate. His first dose was 05/02 then 05/09. Pt was recently hospitalized at [facility] 05/02 to 05/05 for hyponatremia, poor oral intake, MALGORZATA and bullous pemphigoid flare. His states his oral lesions began about 1 month ago. He has trouble swallowing since. In the ED, he was febrile 38.8 C and tachycardic to 140s. Normotensive. ED labs significant for WBC 0.46 (notably WBC 7.89 on 05/05) Hgb 9.7, Plt 110, Na 130, Cr 1.71, lactate 1.5, TB 1.2, troponin 22. CBC, CMP, UA otherwise unremarkable. CXR with some b/l opacities but no focal consolidations. 05/15 Blood cultures are growing MSSA 2/4 bottles. Repeat blood cultures in lab. ID Consulted today. During my interview, patient is having difficulty speaking. at bedside who confirms above history. Allergies Allergy/AdvReac Type Severity Reaction Status Date / Time No Known Allergies Allergy Unverified 05/11/22 10:58 Home Medications Medication Instructions Recorded Confirmed Type blood sugar diagnostic (OneTouch #10 ea 08/11/18 05/11/22 Rx Ultra Blue Test Strip) blood-glucose meter (OneTouch #1 ea 08/11/18 05/11/22 Rx Ultra2 Meter kit) finasteride 5 mg tablet 5 mg PO DAILY #90 tabs 08/11/18 05/15/22 Rx lancets (OneTouch UltraSoft #50 ea 08/11/18 05/11/22 Rx Lancets) mirtazapine 15 mg tablet 15 mg PO DAILY #30 tabs 08/11/18 05/15/22 Rx tamsulosin 0.4 mg capsule 0.4 mg PO DAILY #30 caps 12/29/20 05/15/22 Rx aspirin 81 mg tablet,delayed 81 mg PO DAILY 04/28/21 05/15/22 History release (Meseret Low Dose Aspirin) cyclobenzaprine 10 mg tablet 10 mg PO HS PRN muscle spasm 05/31/21 05/15/22 History magnesium oxide 420 mg tablet 420 mg PO DAILY 05/31/21 05/15/22 History psyllium husk 0.52 gram capsule 0.52 g PO DAILY #30 caps 06/02/21 05/15/22 Rx (Daily Fiber) levothyroxine 75 mcg tablet 75 mcg PO DAILY #30 tabs 07/31/21 05/15/22 Rx triamcinolone acetonide 0.1 % 1 applic topical DAILY PRN itching 11/09/21 Rx topical cream #80 grams guaifenesin 400 mg tablet 400 mg PO BID PRN cough #30 tabs 11/10/21 05/15/22 Rx betamethasone dipropionate 0.05 % 1 applic topical BID PRN skin 11/21/2105/15 Rx topical cream irritation #45 grams spironolactone 25 mg tablet 25 mg PO DAILY #90 tabs 12/05/21 05/15/22 Rx levocetirizine 5 mg tablet 5 mg PO DAILY #90 tabs 02/09/22 05/15/22 Rx metoprolol tartrate 25 mg tablet 25 mg PO DAILY 03/21/22 05/15/22 History nystatin 100,000 unit/gram topical 1 applic topical BID #30 grams 03/21/22 05/15/22 Rx ointment simvastatin 10 mg tablet 5 mg PO QPM 03/21/22 05/15/22 History calamine 3 %-zinc oxide 3 %-gauze #2 ea 04/20/22 05/11/22 Rx bandage 4" X 10 yard (Unna Boot Zinc-Calamine) pantoprazole 40 mg tablet,delayed 40 mg PO BID #180 tabs 05/01/22 05/15/22 Rx release folic acid 1 mg tablet 1 mg PO DAILY 05/02/22 05/15/22 History mecobalamin (vitamin B12) 1,000 0 mcg PO DAILY 05/02/22 05/15/22 History mcg chewable tablet (B12 Active) methotrexate sodium 2.5 mg tablet 12.5 mg PO WK 05/02/22 05/15/22 History linagliptin 5 mg tablet (Tradjenta) 5 mg PO DAILY #90 tabs 05/11/22 05/15/22 Rx Patient History Medical History Acute hyponatremia Acute kidney injury Acute pain of mouth Alcoholic cirrhosis Anemia Arthritis Ascites due to alcoholic cirrhosis Boil of groin BPH (benign prostatic hyperplasia) CAD (coronary artery disease) Cardiomyopathy CHF (congestive heart failure) Chronic rhinitis Depression DM (diabetes mellitus) GERD without esophagitis Hearing difficulty of both ears History of GI bleed HTN (hypertension) Hyperlipidemia Hypothyroidism (acquired) Insomnia Low magnesium levels Mild cognitive impairment Neuropathy Oropharyngeal dysphagia Peripheral neuropathy Stage 4 chronic kidney disease due to benign hypertension Testicular nodule Vitamin D deficiency Surgical History H/O hand surgery History of back surgery S/P cataract surgery S/P cholecystectomy S/P shoulder surgery Family History Mother Ovarian cancer Denies family history of Prostate cancer Myocardial infarction Breast cancer Colorectal cancer Social History Smoking Status: Never smoker Tobacco Type: Cigarettes Cigarettes Per Day: Uncertain of amt.; Second Hand Exposure: No; Hx Alcohol Use: Yes Alcohol type: beer Alcohol Intake Frequency: 4 or More x per/Week Hx Substance Use: No Preferred Language: Dutch Communication Ability: Effective Visual Impairment: No Limitations Hearing Ability: Use of Hearing Aid Material Preparation Worker Required: No Beliefs That Will Affect Care: None marital status: Current Living Situation: Spouse current occupational status: retired Feels Safe at Home: Yes Childhood Exposure to Second-Hand Smoke: Yes Diet Comment: barely eats as per caffeine: No during the past year weight has: remained stable Dental Care, Regularly: No Physical Activity Frequency: Does not Exercise Seatbelt Use: always Sunscreen Use: No Assistive Devices: Lift Chair, Walker, Wheelchair and Other Physical Exam Physical Exam: NAD CTAB OP bloody oral lesions noted Multiple lesions on skin arms/legs Results & Data ([facility]) Vital Signs (Past 12 Hours) Vital Signs Temp Pulse Pulse Resp BP BP Pulse Ox 05/17/22 11:17 36.5 C 125 H 14 137/86 100 05/17/22 07:00 110 H 05/17/22 07:38 36.6 C 118 H 15 132/87 98 05/17/22 06:03 103 H 122/97 05/17/22 02:35 36.7 C 112 H 18 122/97 99 O2 Del Method 05/17/22 11:17 Room Air 05/17/22 07:00 05/17/22 07:38 Room Air 05/17/22 06:03 05/17/22 02:35 Room Air Laboratory Results Laboratory Results - last 48 hr 05/15/22 05/15/22 05/15/22 00:42 18:30 23:31 WBC RBC Hgb Hct MCV MCH MCHC RDW Std Deviation RDW Coeff of Otto Plt Count MPV Immature Gran % (Auto) Neut % (Auto) Lymph % (Auto) Mobile % (Auto) Eos % (Auto) Baso % (Auto) Neut # (Auto) Lymph # (Auto) Mobile # (Auto) Eos # (Auto) Baso # (Auto) Immature Gran # (Auto) Neutrophils % (Manual) Lymphocytes % (Manual) Monocytes % (Manual) Eosinophils % (Manual) Myelocytes % (Man) Neutrophils # (Manual) Total Absolute Neuts Lymphocytes # (Manual) Total Abs Lymphocytes Monocytes # (Manual) Eosinophils # (Manual) Myelocytes # (Manual) Toxic Granulation Dohle Bodies Polychromasia Echinocytes Sodium Potassium Chloride Carbon Dioxide Anion Gap BUN Creatinine Est Cr Clr Drug Dosing Est GFR ( Amer) Est GFR (Non-Af Amer) BUN/Creatinine Ratio Glucose POC Glucose 141 H 122 H Calcium Phosphorus Magnesium Iron TIBC Unsaturated IBC Transferrin % Sat Total Bilirubin AST ALT Alkaline Phosphatase Total Protein Albumin Globulin Albumin/Globulin Ratio Triglycerides Vitamin B12 Folate Vancomycin Trough Staphylococcus sp PCR DETECTED A Staph aureus (PCR) DETECTED A mecA/C & MREJ Resist Gene MRSA DETECTED A* Bld Cult ID Panel PCR See PCR Comment Blood Type Blood Type Recheck Antibody Screen Crossmatch 05/16/22 05/16/22 05/16/22 05:39 05:43 05:43 WBC 1.03 L RBC 2.49 L Hgb 7.7 L Hct 23.5 L MCV 94.4 MCH 30.9 MCHC 32.8 RDW Std Deviation 42.4 RDW Coeff of Otto 12.4 Plt Count 81 L MPV 10.0 Immature Gran % (Auto) 0.0 Neut % (Auto) 48.6 Lymph % (Auto) 19.4 Mobile % (Auto) 9.7 Eos % (Auto) 22.3 Baso % (Auto) 0.0 Neut # (Auto) 0.50 L* Lymph # (Auto) 0.20 L Mobile # (Auto) 0.10 L Eos # (Auto) 0.23 Baso # (Auto) 0.00 Immature Gran # (Auto) 0.00 L Neutrophils % (Manual) Lymphocytes % (Manual) Monocytes % (Manual) Eosinophils % (Manual) Myelocytes % (Man) Neutrophils # (Manual) Total Absolute Neuts Lymphocytes # (Manual) Total Abs Lymphocytes Monocytes # (Manual) Eosinophils # (Manual) Myelocytes # (Manual) Toxic Granulation Dohle Bodies Polychromasia 1+ Echinocytes Sodium 136 Potassium 4.0 Chloride 107 Carbon Dioxide 23 Anion Gap 6 BUN 21 Creatinine 1.55 H 1.57 H Est Cr Clr Drug Dosing 41.2 40.7 Est GFR ( Amer) 49.3 48.6 Est GFR (Non-Af Amer) 42.5 41.9 BUN/Creatinine Ratio 13.4 Glucose 97 POC Glucose Calcium 7.9 L Phosphorus Magnesium Iron TIBC Unsaturated IBC Transferrin % Sat Total Bilirubin 0.7 D AST 7 L ALT 10 Alkaline Phosphatase 62 Total Protein 4.9 L Albumin 2.0 L Globulin 2.9 Albumin/Globulin Ratio 0.7 L Triglycerides Vitamin B12 Folate Vancomycin Trough Staphylococcus sp PCR Staph aureus (PCR) mecA/C & MREJ Resist Gene Bld Cult ID Panel PCR Blood Type Blood Type Recheck Antibody Screen Crossmatch 05/16/22 05/16/22 05/16/22 06:37 11:59 11:59 WBC 0.82 L* RBC 2.81 L Hgb 8.6 L Hct 26.4 L MCV 94.0 MCH 30.6 MCHC 32.6 RDW Std Deviation 42.4 RDW Coeff of Otto 12.5 Plt Count 71 L MPV 9.7 Immature Gran % (Auto) Neut % (Auto) Lymph % (Auto) Mobile % (Auto) Eos % (Auto) Baso % (Auto) Neut # (Auto) Lymph # (Auto) Mobile # (Auto) Eos # (Auto) Baso # (Auto) Immature Gran # (Auto) Neutrophils % (Manual) Lymphocytes % (Manual) Monocytes % (Manual) Eosinophils % (Manual) Myelocytes % (Man) Neutrophils # (Manual) Total Absolute Neuts Lymphocytes # (Manual) Total Abs Lymphocytes Monocytes # (Manual) Eosinophils # (Manual) Myelocytes # (Manual) Toxic Granulation Dohle Bodies Polychromasia Echinocytes Sodium Potassium Chloride Carbon Dioxide Anion Gap BUN Creatinine Est Cr Clr Drug Dosing Est GFR ( Amer) Est GFR (Non-Af Amer) BUN/Creatinine Ratio Glucose POC Glucose 91 Calcium Phosphorus 1.9 L Magnesium 1.9 Iron TIBC Unsaturated IBC Transferrin % Sat Total Bilirubin 0.7 AST 7 L ALT Alkaline Phosphatase 69 Total Protein Albumin Globulin Albumin/Globulin Ratio Triglycerides 102 Vitamin B12 Folate Vancomycin Trough Staphylococcus sp PCR Staph aureus (PCR) mecA/C & MREJ Resist Gene Bld Cult ID Panel PCR Blood Type Blood Type Recheck Antibody Screen Crossmatch 05/16/22 05/16/22 05/16/22 11:59 12:09 14:23 WBC RBC Hgb Hct MCV MCH MCHC RDW Std Deviation RDW Coeff of Otto Plt Count MPV Immature Gran % (Auto) Neut % (Auto) Lymph % (Auto) Mobile % (Auto) Eos % (Auto) Baso % (Auto) Neut # (Auto) Lymph # (Auto) Mobile # (Auto) Eos # (Auto) Baso # (Auto) Immature Gran # (Auto) Neutrophils % (Manual) Lymphocytes % (Manual) Monocytes % (Manual) Eosinophils % (Manual) Myelocytes % (Man) Neutrophils # (Manual) Total Absolute Neuts Lymphocytes # (Manual) Total Abs Lymphocytes Monocytes # (Manual) Eosinophils # (Manual) Myelocytes # (Manual) Toxic Granulation Dohle Bodies Polychromasia Echinocytes Sodium Potassium Chloride Carbon Dioxide Anion Gap BUN Creatinine Est Cr Clr Drug Dosing Est GFR ( Amer) Est GFR (Non-Af Amer) BUN/Creatinine Ratio Glucose POC Glucose 88 Calcium Phosphorus Magnesium Iron TIBC Unsaturated IBC Transferrin % Sat Total Bilirubin AST ALT Alkaline Phosphatase Total Protein Albumin Globulin Albumin/Globulin Ratio Triglycerides Vitamin B12 Folate Vancomycin Trough Staphylococcus sp PCR Staph aureus (PCR) mecA/C & MREJ Resist Gene Bld Cult ID Panel PCR Blood Type A Positive Blood Type Recheck A Positive Antibody Screen NEGATIVE Crossmatch See Detail 05/16/22 05/16/22 05/16/22 18:23 20:42 20:42 WBC RBC Hgb 8.7 L Hct 25.7 L MCV MCH MCHC RDW Std Deviation RDW Coeff of Otto Plt Count MPV Immature Gran % (Auto) Neut % (Auto) Lymph % (Auto) Mobile % (Auto) Eos % (Auto) Baso % (Auto) Neut # (Auto) Lymph # (Auto) Mobile # (Auto) Eos # (Auto) Baso # (Auto) Immature Gran # (Auto) Neutrophils % (Manual) Lymphocytes % (Manual) Monocytes % (Manual) Eosinophils % (Manual) Myelocytes % (Man) Neutrophils # (Manual) Total Absolute Neuts Lymphocytes # (Manual) Total Abs Lymphocytes Monocytes # (Manual) Eosinophils # (Manual) Myelocytes # (Manual) Toxic Granulation Dohle Bodies Polychromasia Echinocytes Sodium Potassium Chloride Carbon Dioxide Anion Gap BUN Creatinine Est Cr Clr Drug Dosing Est GFR ( Amer) Est GFR (Non-Af Amer) BUN/Creatinine Ratio Glucose POC Glucose 139 H Calcium Phosphorus Magnesium Iron TIBC Unsaturated IBC Transferrin % Sat Total Bilirubin AST ALT Alkaline Phosphatase Total Protein Albumin Globulin Albumin/Globulin Ratio Triglycerides Vitamin B12 Folate Vancomycin Trough 10.6 Staphylococcus sp PCR Staph aureus (PCR) mecA/C & MREJ Resist Gene Bld Cult ID Panel PCR Blood Type Blood Type Recheck Antibody Screen Crossmatch 03/10/3105/17/22 05/17/22 23:31 05:49 06:10 WBC 0.92 L* RBC 3.04 L Hgb 9.4 L Hct 27.5 L MCV 90.5 MCH 30.9 MCHC 34.2 RDW Std Deviation 41.3 RDW Coeff of Otto 12.6 Plt Count 79 L MPV 10.7 Immature Gran % (Auto) Neut % (Auto) Lymph % (Auto) Mobile % (Auto) Eos % (Auto) Baso % (Auto) Neut # (Auto) Lymph # (Auto) Mobile # (Auto) Eos # (Auto) Baso # (Auto) Immature Gran # (Auto) Neutrophils % (Manual) 79 Lymphocytes % (Manual) 8 Monocytes % (Manual) 11 Eosinophils % (Manual) 2 Myelocytes % (Man) 1 Neutrophils # (Manual) 0.73 L Total Absolute Neuts 0.73 L* Lymphocytes # (Manual) 0.07 L Total Abs Lymphocytes 0.07 L Monocytes # (Manual) 0.10 L Eosinophils # (Manual) 0.02 Myelocytes # (Manual) 0.01 H Toxic Granulation 2+ Dohle Bodies 2+ Polychromasia 1+ Echinocytes 3+ Sodium Potassium Chloride Carbon Dioxide Anion Gap BUN Creatinine Est Cr Clr Drug Dosing Est GFR ( Amer) Est GFR (Non-Af Amer) BUN/Creatinine Ratio Glucose POC Glucose 172 H 240 H Calcium Phosphorus Magnesium Iron TIBC Unsaturated IBC Transferrin % Sat Total Bilirubin AST ALT Alkaline Phosphatase Total Protein Albumin Globulin Albumin/Globulin Ratio Triglycerides Vitamin B12 Folate Vancomycin Trough Staphylococcus sp PCR Staph aureus (PCR) mecA/C & MREJ Resist Gene Bld Cult ID Panel PCR Blood Type Blood Type Recheck Antibody Screen Crossmatch 05/17/22 05/17/22 05/17/22 06:10 10:57 12:41 WBC RBC Hgb Hct MCV MCH MCHC RDW Std Deviation RDW Coeff of Otto Plt Count MPV Immature Gran % (Auto) Neut % (Auto) Lymph % (Auto) Mobile % (Auto) Eos % (Auto) Baso % (Auto) Neut # (Auto) Lymph # (Auto) Mobile # (Auto) Eos # (Auto) Baso # (Auto) Immature Gran # (Auto) Neutrophils % (Manual) Lymphocytes % (Manual) Monocytes % (Manual) Eosinophils % (Manual) Myelocytes % (Man) Neutrophils # (Manual) Total Absolute Neuts Lymphocytes # (Manual) Total Abs Lymphocytes Monocytes # (Manual) Eosinophils # (Manual) Myelocytes # (Manual) Toxic Granulation Dohle Bodies Polychromasia Echinocytes Sodium 135 L Potassium 4.0 Chloride 109 H Carbon Dioxide 19 L Anion Gap 7 BUN 25 H Creatinine 1.24 D Est Cr Clr Drug Dosing 51.5 Est GFR ( Amer) 64.6 Est GFR (Non-Af Amer) 55.7 BUN/Creatinine Ratio 20.2 H Glucose 241 H POC Glucose 237 H Calcium 7.5 L Phosphorus 2.8 Magnesium 1.9 Iron 25 L TIBC 100 L Unsaturated IBC 75 L Transferrin % Sat 25 Total Bilirubin AST ALT Alkaline Phosphatase Total Protein Albumin Globulin Albumin/Globulin Ratio Triglycerides Vitamin B12 Folate Vancomycin Trough Staphylococcus sp PCR Staph aureus (PCR) mecA/C & MREJ Resist Gene Bld Cult ID Panel PCR Blood Type Blood Type Recheck Antibody Screen Crossmatch 05/17/22 12:41 WBC RBC Hgb Hct MCV MCH MCHC RDW Std Deviation RDW Coeff of Otto Plt Count MPV Immature Gran % (Auto) Neut % (Auto) Lymph % (Auto) Mobile % (Auto) Eos % (Auto) Baso % (Auto) Neut # (Auto) Lymph # (Auto) Mobile # (Auto) Eos # (Auto) Baso # (Auto) Immature Gran # (Auto) Neutrophils % (Manual) Lymphocytes % (Manual) Monocytes % (Manual) Eosinophils % (Manual) Myelocytes % (Man) Neutrophils # (Manual) Total Absolute Neuts Lymphocytes # (Manual) Total Abs Lymphocytes Monocytes # (Manual) Eosinophils # (Manual) Myelocytes # (Manual) Toxic Granulation Dohle Bodies Polychromasia Echinocytes Sodium Potassium Chloride Carbon Dioxide Anion Gap BUN Creatinine Est Cr Clr Drug Dosing Est GFR ( Amer) Est GFR (Non-Af Amer) BUN/Creatinine Ratio Glucose POC Glucose Calcium Phosphorus Magnesium Iron TIBC Unsaturated IBC Transferrin % Sat Total Bilirubin AST ALT Alkaline Phosphatase Total Protein Albumin Globulin Albumin/Globulin Ratio Triglycerides Vitamin B12 1123 H Folate 14.23 Vancomycin Trough Staphylococcus sp PCR Staph aureus (PCR) mecA/C & MREJ Resist Gene Bld Cult ID Panel PCR Blood Type Blood Type Recheck Antibody Screen Crossmatch Microbiology 05/16/22 11:59 Blood Aerobic Blood Culture - Preliminary No growth in Aerobic bottle after 24 hours. 05/16/22 11:59 Blood Anaerobic Blood Culture - Preliminary No growth in Anaerobic bottle after 24 hours. 05/16/22 11:59 Blood Aerobic Blood Culture - Preliminary No growth in Aerobic bottle after 24 hours. 05/16/22 11:59 Blood Anaerobic Blood Culture - Preliminary No growth in Anaerobic bottle after 24 hours. 05/15/22 00:47 Urine,Clean Catch Urine Culture - Final No growth - less than 1,000 colonies/mL. 05/15/22 00:42 Blood Aerobic Blood Culture - Final Staphylococcus aureus 05/15/22 00:42 Blood Anaerobic Blood Culture - Final Staphylococcus aureus 05/15/22 01:29 Blood Aerobic Blood Culture - Preliminary No growth in Aerobic bottle after 48 hours. 05/15/22 01:29 Blood Anaerobic Blood Culture - Preliminary No growth in Anaerobic bottle after 48 hours. 05/15/22 06:17 Sputum, Expectorated Gram Stain - Final 05/15/22 06:17 Sputum, Expectorated Sputum Culture - Final Medications Administered Current Inpatient Medications Cetirizine HCl (Cetirizine Hcl 10 Mg Tablet) 10 mg PO DAILY [facility] Stop: 06/14/22 08:59 Last Admin: 05/15/22 12:25 Dose: Not Given Dextrose (Dextrose 50% 50 Ml Syringe) 25 - 50 ml IV UD PRN; Protocol PRN Reason: Hypoglycemia Protocol Stop: 06/14/22 17:13 Docusate Sodium (Docusate Sodium 100 Mg Cap) 100 mg PO BID [facility] Stop: 06/14/22 08:59 Last Admin: 05/15/22 12:25 Dose: Not Given Finasteride (Finasteride 5 Mg Tab) 5 mg PO DAILY [facility] Stop: 06/14/22 08:59 Last Admin: 05/15/22 12:25 Dose: Not Given Folic Acid (Folic Acid 1 Mg Tab) 1 mg PO DAILY [facility] Stop: 06/14/22 08:59 Last Admin: 05/15/22 12:25 Dose: Not Given Glucagon (Glucagon For Inj 1 Mg Vial) 1 mg SQ UD PRN; Protocol PRN Reason: Hypoglycemia Protocol Stop: 06/14/22 17:13 Glucose (Glucose 10 Tab/Tube) 4 - 8 tab PO UD PRN; Protocol PRN Reason: Hypoglycemia Treatment Stop: 06/14/22 17:13 Glucose (Glucose 40% Gel 15 Gm Tube) 15 - 30 gm PO UD PRN; Protocol PRN Reason: Hypoglycemia Protocol Stop: 06/14/22 17:13 Acetaminophen (Ofirmev) 1,000 mg in 100 mls @ 400 mls/hr IV Q8H PRN PRN Reason: fever, pain Stop: 05/18/22 06:07 Pantoprazole Sodium 40 mg/ (Syringe) 10 mls @ 5 mls/min IV DAILY@1100 [facility] Stop: 06/14/22 10:59 Last Admin: 05/17/22 11:47 Dose: 5 mls/min Levothyroxine Sodium 50 mcg/ (Syringe) 2.5 mls @ 2 mls/min IV Q72H [facility]; Protocol Stop: 06/15/22 08:59 Last Admin: 05/16/22 10:39 Dose: 2 mls/min Amino Acids 1,739 ml/ (Nutrition (Parenteral)) 1,739 mls @ 72.46 mls/hr IV .Q24H [facility]; Protocol Stop: 05/17/22 15:59 Last Admin: 05/16/22 16:19 Dose: 72.5 mls/hr Acyclovir Sodium 700 mg/ (Dextrose) 264 mls @ 250 mls/hr IV Q12H [facility]; Protocol Stop: 05/26/22 14:29 Last Admin: 05/17/22 14:56 Dose: 250 mls/hr Fluconazole (Diflucan) 200 mg in 100 mls @ 100 mls/hr IV DAILY@2100,2200 [facility]; Protocol Stop: 05/20/22 20:59 Last Infusion: 05/17/22 01:51 Dose: Infused Vancomycin HCl 1,500 mg/ (Sodium Chloride) 530 mls @ 200 mls/hr IV Q24H [facility]; Protocol Stop: 05/31/22 11:59 Last Infusion: 05/17/22 15:08 Dose: Infused Amino Acids 1,777.4 ml/ (Nutrition (Parenteral)) 1,777.4 mls @ 74.06 mls/hr IV .Q24H [facility]; Protocol Stop: 05/18/22 15:59 Fat Emulsion-[place] Oil/Soybean Oil (Clinolipid 20% Iv Fat Emulsion) 250 mls @ 41.667 mls/hr IV .Q6H [facility] Stop: 05/17/22 21:59 Cefepime HCl 2,000 mg/ Syringe 20 mls @ 5 mls/min IV Q12H [facility]; Protocol Stop: 05/31/22 14:29 Last Admin: 05/17/22 14:56 Dose: 5 mls/min Insulin Aspart (Insulin Aspart Per Unit) 0 units SC Q6 [facility] Stop: 06/14/22 20:59 Last Admin: 05/17/22 11:43 Dose: 4 units Levothyroxine Sodium (Levothyroxine Sodium 75 Mcg Tablet) 75 mcg PO DAILYBB [facility] Stop: 06/14/22 06:59 Last Admin: 05/15/22 12:25 Dose: Not Given Magnesium Oxide (Magnesium Oxide 400 Mg Tab) 400 mg PO DAILY [facility] Stop: 06/14/22 08:59 Last Admin: 05/15/22 12:25 Dose: Not Given Metoprolol Tartrate (Metoprolol Tartrate 1 Mg/Ml Vial) 2.5 mg IV Q6 [facility] Stop: 06/15/22 16:29 Last Admin: 05/17/22 11:47 Dose: 2.5 mg Mirtazapine (Mirtazapine Tab 15 Mg Tab) 15 mg PO DAILY [facility] Stop: 06/14/22 08:59 Last Admin: 05/17/22 09:12 Dose: Not Given Miscellaneous (Carbohydrates For Hypoglycemia ) 15 - 30 gm PO UD PRN PRN Reason: Hypoglycemia Protocol Stop: 06/14/22 17:13 Miscellaneous Information (Vancomycin Consult Active) 1 each N/A UD PRN PRN Reason: Consult Stop: 06/14/22 06:07 Miscellaneous Information (Tpn/Ppn Consult Pharmacy) 1 each N/A UD [facility] Stop: 06/15/22 11:45 Multi-Ingredient Mouthwash/Gargle (First - Mouthwash Blm 119 Ml) 5 ml PO BID [facility] Stop: 06/14/22 08:59 Last Admin: 05/17/22 09:12 Dose: 5 ml Ondansetron HCl (Ondansetron Inj 2 Mg/Ml 2 Ml Vial) 4 mg IV Q6H PRN PRN Reason: Nausea Stop: 06/14/22 06:07 Phenol (Chloraseptic 1.4% Soln 180 Ml Btl) 2 sprays MT Q3H PRN PRN Reason: throat pain Stop: 06/14/22 06:07 Prednisone (Prednisone 20 Mg Tab) 20 mg PO DAILY CROW Stop: 06/16/22 08:59 Last Admin: 05/17/22 09:12 Dose: Not Given Simvastatin (Simvastatin 5 Mg Tab) 5 mg PO QPM CROW Stop: 06/14/22 20:59 Last Admin: 05/16/22 19:18 Dose: Not Given Sodium Chloride (Sodium Chloride 0.65% Na Soln 45 Ml ([place])) 2 sprays NA Q4H PRN PRN Reason: dry nose Stop: 06/14/22 17:16
[2022-05-17] MEDS ORDERED: CLINOLIPID 20% IV FAT EMULSION 250 ML IV SCH (16:00)
[2022-05-17] MEDS ORDERED: [UNRECOGNIZED DRUG - OTHER] IV SCH (16:00)
[2022-05-17] MEDS ORDERED: PERIPHERAL TPN IV SCH (16:00)
[2022-05-17] MEDS: SIMVASTATIN 5 MG TAB PO SCH (19:38)
--- NOTE | 2022-05-17 20:42 | Hospitalist Progress Note ---
Date of Service May 17, 2022 Assessment & Plan (1) Neutropenic fever: Plan: -Acute serious risk- meeting sepsis criteria on presentation now resolved -consider skin source with bullous pemphigoid, preliminary is Gr + chains TTe completed:, ID evaluation completed throat pain, out pt CT neck Mild thickening of posterior pharyngeal rawls at level of piriform sinuses symptomatic treatment patient having nosebleeds which was controlled with Afrin given pancytopenia start antivirals and antifungals -cultures final: showing staph aureus. -Neutropenic precautions -Empiric coverage with broad spectrum antibiotics- vancomycin and cefepime acyclovir and diflucan Bullous pemphigoid, new diagnosis ,methotrexate held, on stress steroids with lower bp on presentation pancytopenia due to chemotherapy, anemia likely secondary to chronic disease, will monitor on 05/17 will check iron studies and folic acid and B12. Levels do not suggest iron def. anemia, folic acid def, or B12 def. Bullous pemphigoid carries a poor prognosis, his host/hostess ground relayed to me that majority pass away within a month of the diagnosis. 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 This is pathologically indeterminate, and neoplasm is the diagnosis of exclusion. Our Supply And Distribution Manager [place] but took a phone call 05/16/2022. 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 Apically does not bleed significantly but he is pancytopenic which may institute that. Subsequently we are looking to try to see if we can get a biopsy of this at outside facility. I phoned both [facility] and [facility]. I was initially denied at [facility] for possible transfer [facility] was denied. For now, Brain mass does not appear to be growing, as radiologist compared both images on 05/17 ([place] images were sent here electronically). If patient's condition worsens may consider transfer, however vital are stable. Transfer would be in case patient is more septic, or vitals are unstable. (4) DM (diabetes mellitus): Plan: chronic and stable , -A1C 7.4% in 05/03 -Initiate basal insulin + SSI once pt tolerating diet to the n.p.o. status we will reduce basal insulin (5) Stage 4 chronic kidney disease due to benign hypertension: Plan: -Chronic and stable baseline Cr appears around 2 -Stable, trend BMP (6) Anemia: Plan: Chronic unclear if stable-Hgb 9.7, baseline appears around 10-11 anemia of chronic disease -Possibly of acute blood loss anemia from normal [place] bleeding. Patient transfused 2 units packed red blood cells on protein pump inhibitor (7) Ascites due to alcoholic cirrhosis: Plan: -Regular ETOH consumption ongoing, pt not interested in cessation -Continue spironolactone -Continue cefepime/vancomycin at present (8) Depression: Plan: -Chronic and stable continue mirtazapine (9) GERD without esophagitis: Plan: -Chronic and stable patient with swallowing difficulties or pain with swallowing pantoprazole 40 mg IV daily in place of home PO pantoprazole (10) Hypothyroidism (acquired): Plan: -Continue levothyroxine will convert to IV at this time (11) BPH (benign prostatic hyperplasia): Plan: chronic stable no LUTS -Continue tamsulosin, finasteride (12) Bullous pemphigoid: Plan: receiving stress steroids. Plan Code status: Full DVT ppx: SCDs, defer chemoprophylaxis with thrombocytopenia Admission and Anticipated Discharge Date Admission Date: May 15, 2022 Subjective Patient continues to be intermittently confused. Granddaughter at bedside. Review of Systems Review of Systems: All systems reviewed & are unremarkable except as noted in HPI & below Physical Exam Physical Exam: pt is chronically ill Multiple open areas of his skin various stages of depth worsened this is left heel photographs in the wound care nurse section wound care applied today. Previous diagnosis with pemphigoid by his outpatient host/hostess ground oral lesions are crusted but not with visable ulcers, vesicles or thrush appearing Card exam is regular with a murmur he is tachycardic Lungs are clear diminished at the bases abdomen NABS soft and nontender Results & Data Results & Data ([facility]) Vital Signs (Past 12 Hours) Vital Signs Temp Pulse Pulse Resp BP Pulse Ox O2 Del Method 05/17/22 19:32 36.7 C 122 H 18 120/66 95 Room Air 05/17/22 18:37 108 H 05/17/22 15:28 36.7 C 109 H 12 128/83 98 Room Air 05/17/22 11:17 36.5 C 125 H 14 137/86 100 Room Air PG Care Time/CCT Total # of Minutes Spent Total Time Spent with Patient: Total time spent is greater than 50% in coordination of care (as documented) at patient's floor/unit and/or counseling patient: Prolonged Care Time Prolonged Care Time: Yes Total Prolonged Care Time: 120 8:00 to 8:45 9:30 to 10:15 17:30 to 18:00 Coding Level of Care Code 25480 SUB INP/OBS CARE 3/50MIN (25 - SIGNIFICANT, SEPARATELY IDENTIFIABLE ) Diagnoses Neutropenic fever D70.9; R50.81 CHF (congestive heart failure) I50.9 Brain mass G93.89 DM (diabetes mellitus) E11.9 Stage 4 chronic kidney disease due to benign hypertension I12.9; N18.4 Anemia D64.9 Ascites due to alcoholic cirrhosis K70.31 Depression F32.9 GERD without esophagitis K21.9 Hypothyroidism (acquired) E03.9 BPH (benign prostatic hyperplasia) N40.0 Bullous pemphigoid L12.0 Additional Codes Prolonged Care Time - Prolonged Care Time: Yes ([id number]) Time Spent (min) 120 Comment discussed case with Hematology/dermatology previous hospitalist/ reviewed notes
[2022-05-17] MEDS ORDERED: STOP CLINOLIPID SCH (22:00)
[2022-05-18] MEDS: METOPROLOL TARTRATE 1 MG/ML VIAL IV SCH ×3 (00:17→13:05)
[2022-05-18] MEDS: INSULIN ASPART PER UNIT SC SCH ×3 (00:33→13:05)
[2022-05-18] MEDS: CEFEPIME 2,000 MG in SYRINGE 0 ML IV SCH (02:35)
[2022-05-18] MEDS: ACYCLOVIR SOD 700 MG in DEXTROSE 5% 250 ML IV SCH (02:45)
[2022-05-18 06:48] LABS: BUN Creatinine Ratio 21.7 (10-20); Calcium 7.8 mg/dl (8.5-10.1); Creatinine Clr Calc Pharmacy 49.5 ml/min; Est GFR (African American) 61.6 ml/min; Est GFR (Non-African American) 53.1 ml/min; Phosphorus 1.4 mg/dl (2.5-4.9); Potassium 3.9 mmol/L (3.5-5.1)
[2022-05-18] MEDS ORDERED: POTASSIUM PHOS 3 MMOL/1 ML INFUSION IV STA (06:50)
[2022-05-18 06:52] LABS: Hematocrit (blood only) 27.2 % (42.0-52.0); Hemoglobin 9.3 g/dl (14.0-18.0); Mean Corpuscular Hemoglobin 30.9 pg (25.0-34.0); Mean Corpuscular Hgb Conc 34.2 g/dL (32.0-36.0); Mean Corpuscular Volume 90.4 fL (80.0-100.0); Mean Platelet Volume 11.2 fL (9.4-12.4); Nucleated RBC # (auto) 0.16 K/uL (0-0.12); Nucleated RBC % (auto) 8.1 %; Platelet Count 66 K/uL (130-400); RDW Coefficient of Variation 12.7 % (11.5-14.5); RDW Standard Deviation 41.2 fL (36.4-46.3); Red Blood Count 3.01 M/uL (4.70-6.10); White Blood Count 1.97 K/ul (4.8-10.8)
[2022-05-18] MEDS ORDERED: POTASSIUM PHOSPHATE 40 MMOL in SODIUM CHLORIDE 0.9% 1000ML 1,000 ML IV ONE (07:15)
[2022-05-18] MEDS: MIRTAZAPINE TAB 15 MG TAB PO SCH (08:23)
[2022-05-18] MEDS: predniSONE 20 MG TAB PO SCH (08:23)
[2022-05-18] MEDS: FIRST - Mouthwash BLM 119 ML PO SCH ×2 (08:23→20:12)
--- NOTE | 2022-05-18 08:39 | Infectious Disease Progress Nt ---
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 ID consulted for staph aureus bacteremia. Seen in [place] [facility] with diffuse blistering rash on Mar 29 - noted rash started 3 weeks prior to this and started on hands although patient thinks it started on his b/l lower extremities with me today. He was ultimately diagnosed with bullous pemphigoid and started on Methotrexate. His first dose was 05/02 then 05/09. Pt was recently hospitalized at [facility] 05/02 to 05/05 for hyponatremia, poor oral intake, MALGORZATA and bullous pemphigoid flare. His states his oral lesions began about 1 month ago. He has trouble swallowing since. In the ED, he was febrile 38.8 C and tachycardic to 140s. Normotensive. ED labs significant for WBC 0.46 (notably WBC 7.89 on 05/05) Hgb 9.7, Plt 110, Na 130, Cr 1.71, lactate 1.5, TB 1.2, troponin 22. CBC, CMP, UA otherwise unremarkable. CXR with some b/l opacities but no focal consolidations. 05/15 Blood cultures are growing MSSA 2/4 bottles. Repeat blood cultures in lab. Discussion: I suspect neutropenia is d/t MTX use. He is growing MSSA bacteria in blood source for this either lungs or skin at this time. CXR does not show diffuse consolidation and he is on room air. Given his multiple open lesions suspect he translocated from the skin. Because it is difficult to see his oral lesions he has been started on Acycylovir and Diflucan IV which is appropriate. (2) Bullous pemphigoid: (3) Bacteremia due to Staphylococcus: Plan -MSSA bacteremia, favor narrowing to Cefazolin 2G IV TID and dcing Vanco/Cefepime -CW Diflucan 400mg IV daily and Acyclovir for 7 days -2DE done, unsafe to do MAK at this time -Palliative care consult [facility]--> Goals of care potentially evolving -Neutropenic precautions Please page me over the weekend with any questions or concerns. I will RT diego fuller on Saturday D/W Primary team. Janneth Post MD Infectious Diseases Admission and Anticipated Discharge Date Admission Date: May 15, 2022 Subjective This patient recommendation is based on a telemedicine consult request which was completed asynchronously through chart review and information provided by the primary physician. The patient was not seen or examined today. The evaluation is consultative in nature and all patient care and treatment decisions can either be accepted or rejected by the patient's primary hospital-based treating physician using their own independent medical judgment for their patient. Time Spent Reviewing Chart: 21 - 30 minutes 24 hours: WBC improved to 1.97 Afebrile Results & Data ([facility]) Vital Signs (Past 12 Hours) Vital Signs Temp Pulse Pulse Resp BP BP Pulse Ox 05/18/22 08:02 36.7 C 95 H 15 136/72 98 05/18/22 06:00 109 H 118/87 05/18/22 00:17 111 H 113/83 05/18/22 00:01 36.7 C 116 H 18 113/83 99 05/17/22 23:28 105 H O2 Del Method 05/18/22 08:02 Room Air 05/18/22 06:00 05/18/22 00:17 05/18/22 00:01 Room Air 05/17/22 23:28 Laboratory Results Laboratory Results - last 48 hr 05/16/22 05/16/22 05/16/22 05:43 11:59 11:59 WBC 1.03 L 0.82 L* RBC 2.49 L 2.81 L Hgb 7.7 L 8.6 L Hct 23.5 L 26.4 L MCV 94.4 94.0 MCH 30.9 30.6 MCHC 32.8 32.6 RDW Std Deviation 42.4 42.4 RDW Coeff of Otto 12.4 12.5 Plt Count 81 L 71 L MPV 10.0 9.7 Immature Gran % (Auto) 0.0 Neut % (Auto) 48.6 Lymph % (Auto) 19.4 Forrest % (Auto) 9.7 Eos % (Auto) 22.3 Baso % (Auto) 0.0 Neut # (Auto) 0.50 L* Lymph # (Auto) 0.20 L Forrest # (Auto) 0.10 L Eos # (Auto) 0.23 Baso # (Auto) 0.00 Immature Gran # (Auto) 0.00 L Absolute Nucleated RBC Nucleated RBC % (auto) Neutrophils % (Manual) Lymphocytes % (Manual) Monocytes % (Manual) Eosinophils % (Manual) Myelocytes % (Man) Neutrophils # (Manual) Total Absolute Neuts Lymphocytes # (Manual) Total Abs Lymphocytes Monocytes # (Manual) Eosinophils # (Manual) Myelocytes # (Manual) Toxic Granulation Dohle Bodies Polychromasia 1+ Echinocytes Sodium Potassium Chloride Carbon Dioxide Anion Gap BUN Creatinine Est Cr Clr Drug Dosing Est GFR ( Amer) Est GFR (Non-Af Amer) BUN/Creatinine Ratio Glucose POC Glucose Calcium Phosphorus 1.9 L Magnesium 1.9 Iron TIBC Unsaturated IBC Transferrin % Sat Total Bilirubin 0.7 AST 7 L Alkaline Phosphatase 69 Triglycerides 102 Vitamin B12 Folate Vancomycin Trough Blood Type Blood Type Recheck Antibody Screen Crossmatch 05/16/22 05/16/22 05/16/22 11:59 12:09 14:23 WBC RBC Hgb Hct MCV MCH MCHC RDW Std Deviation RDW Coeff of Otto Plt Count MPV Immature Gran % (Auto) Neut % (Auto) Lymph % (Auto) Forrest % (Auto) Eos % (Auto) Baso % (Auto) Neut # (Auto) Lymph # (Auto) Forrest # (Auto) Eos # (Auto) Baso # (Auto) Immature Gran # (Auto) Absolute Nucleated RBC Nucleated RBC % (auto) Neutrophils % (Manual) Lymphocytes % (Manual) Monocytes % (Manual) Eosinophils % (Manual) Myelocytes % (Man) Neutrophils # (Manual) Total Absolute Neuts Lymphocytes # (Manual) Total Abs Lymphocytes Monocytes # (Manual) Eosinophils # (Manual) Myelocytes # (Manual) Toxic Granulation Dohle Bodies Polychromasia Echinocytes Sodium Potassium Chloride Carbon Dioxide Anion Gap BUN Creatinine Est Cr Clr Drug Dosing Est GFR ( Amer) Est GFR (Non-Af Amer) BUN/Creatinine Ratio Glucose POC Glucose 88 Calcium Phosphorus Magnesium Iron TIBC Unsaturated IBC Transferrin % Sat Total Bilirubin AST Alkaline Phosphatase Triglycerides Vitamin B12 Folate Vancomycin Trough Blood Type A Positive Blood Type Recheck A Positive Antibody Screen NEGATIVE Crossmatch See Detail 05/16/22 05/16/22 05/16/22 18:23 20:42 20:42 WBC RBC Hgb 8.7 L Hct 25.7 L MCV MCH MCHC RDW Std Deviation RDW Coeff of Otto Plt Count MPV Immature Gran % (Auto) Neut % (Auto) Lymph % (Auto) Forrest % (Auto) Eos % (Auto) Baso % (Auto) Neut # (Auto) Lymph # (Auto) Forrest # (Auto) Eos # (Auto) Baso # (Auto) Immature Gran # (Auto) Absolute Nucleated RBC Nucleated RBC % (auto) Neutrophils % (Manual) Lymphocytes % (Manual) Monocytes % (Manual) Eosinophils % (Manual) Myelocytes % (Man) Neutrophils # (Manual) Total Absolute Neuts Lymphocytes # (Manual) Total Abs Lymphocytes Monocytes # (Manual) Eosinophils # (Manual) Myelocytes # (Manual) Toxic Granulation Dohle Bodies Polychromasia Echinocytes Sodium Potassium Chloride Carbon Dioxide Anion Gap BUN Creatinine Est Cr Clr Drug Dosing Est GFR ( Amer) Est GFR (Non-Af Amer) BUN/Creatinine Ratio Glucose POC Glucose 139 H Calcium Phosphorus Magnesium Iron TIBC Unsaturated IBC Transferrin % Sat Total Bilirubin AST Alkaline Phosphatase Triglycerides Vitamin B12 Folate Vancomycin Trough 10.6 Blood Type Blood Type Recheck Antibody Screen Crossmatch 05/16/22 05/17/22 05/17/22 23:31 05:49 06:10 WBC 0.92 L* RBC 3.04 L Hgb 9.4 L Hct 27.5 L MCV 90.5 MCH 30.9 MCHC 34.2 RDW Std Deviation 41.3 RDW Coeff of Otto 12.6 Plt Count 79 L MPV 10.7 Immature Gran % (Auto) Neut % (Auto) Lymph % (Auto) Forrest % (Auto) Eos % (Auto) Baso % (Auto) Neut # (Auto) Lymph # (Auto) Forrest # (Auto) Eos # (Auto) Baso # (Auto) Immature Gran # (Auto) Absolute Nucleated RBC Nucleated RBC % (auto) Neutrophils % (Manual) 79 Lymphocytes % (Manual) 8 Monocytes % (Manual) 11 Eosinophils % (Manual) 2 Myelocytes % (Man) 1 Neutrophils # (Manual) 0.73 L Total Absolute Neuts 0.73 L* Lymphocytes # (Manual) 0.07 L Total Abs Lymphocytes 0.07 L Monocytes # (Manual) 0.10 L Eosinophils # (Manual) 0.02 Myelocytes # (Manual) 0.01 H Toxic Granulation 2+ Dohle Bodies 2+ Polychromasia 1+ Echinocytes 3+ Sodium Potassium Chloride Carbon Dioxide Anion Gap BUN Creatinine Est Cr Clr Drug Dosing Est GFR ( Amer) Est GFR (Non-Af Amer) BUN/Creatinine Ratio Glucose POC Glucose 172 H 240 H Calcium Phosphorus Magnesium Iron TIBC Unsaturated IBC Transferrin % Sat Total Bilirubin AST Alkaline Phosphatase Triglycerides Vitamin B12 Folate Vancomycin Trough Blood Type Blood Type Recheck Antibody Screen Crossmatch 05/17/22 05/17/22 05/17/22 06:10 10:57 12:41 WBC RBC Hgb Hct MCV MCH MCHC RDW Std Deviation RDW Coeff of Otto Plt Count MPV Immature Gran % (Auto) Neut % (Auto) Lymph % (Auto) Forrest % (Auto) Eos % (Auto) Baso % (Auto) Neut # (Auto) Lymph # (Auto) Forrest # (Auto) Eos # (Auto) Baso # (Auto) Immature Gran # (Auto) Absolute Nucleated RBC Nucleated RBC % (auto) Neutrophils % (Manual) Lymphocytes % (Manual) Monocytes % (Manual) Eosinophils % (Manual) Myelocytes % (Man) Neutrophils # (Manual) Total Absolute Neuts Lymphocytes # (Manual) Total Abs Lymphocytes Monocytes # (Manual) Eosinophils # (Manual) Myelocytes # (Manual) Toxic Granulation Dohle Bodies Polychromasia Echinocytes Sodium 135 L Potassium 4.0 Chloride 109 H Carbon Dioxide 19 L Anion Gap 7 BUN 25 H Creatinine 1.24 D Est Cr Clr Drug Dosing 51.5 Est GFR ( Amer) 64.6 Est GFR (Non-Af Amer) 55.7 BUN/Creatinine Ratio 20.2 H Glucose 241 H POC Glucose 237 H Calcium 7.5 L Phosphorus 2.8 Magnesium 1.9 Iron 25 L TIBC 100 L Unsaturated IBC 75 L Transferrin % Sat 25 Total Bilirubin AST Alkaline Phosphatase Triglycerides Vitamin B12 Folate Vancomycin Trough Blood Type Blood Type Recheck Antibody Screen Crossmatch 05/17/22 05/17/22 05/17/22 12:41 17:54 23:59 WBC RBC Hgb Hct MCV MCH MCHC RDW Std Deviation RDW Coeff of Otto Plt Count MPV Immature Gran % (Auto) Neut % (Auto) Lymph % (Auto) Forrest % (Auto) Eos % (Auto) Baso % (Auto) Neut # (Auto) Lymph # (Auto) Forrest # (Auto) Eos # (Auto) Baso # (Auto) Immature Gran # (Auto) Absolute Nucleated RBC Nucleated RBC % (auto) Neutrophils % (Manual) Lymphocytes % (Manual) Monocytes % (Manual) Eosinophils % (Manual) Myelocytes % (Man) Neutrophils # (Manual) Total Absolute Neuts Lymphocytes # (Manual) Total Abs Lymphocytes Monocytes # (Manual) Eosinophils # (Manual) Myelocytes # (Manual) Toxic Granulation Dohle Bodies Polychromasia Echinocytes Sodium Potassium Chloride Carbon Dioxide Anion Gap BUN Creatinine Est Cr Clr Drug Dosing Est GFR ( Amer) Est GFR (Non-Af Amer) BUN/Creatinine Ratio Glucose POC Glucose 216 H 172 H Calcium Phosphorus Magnesium Iron TIBC Unsaturated IBC Transferrin % Sat Total Bilirubin AST Alkaline Phosphatase Triglycerides Vitamin B12 1123 H Folate 14.23 Vancomycin Trough Blood Type Blood Type Recheck Antibody Screen Crossmatch 05/18/22 05/18/22 05/18/22 05:30 05:30 05:59 WBC 1.97 L RBC 3.01 L Hgb 9.3 L Hct 27.2 L MCV 90.4 MCH 30.9 MCHC 34.2 RDW Std Deviation 41.2 RDW Coeff of Otto 12.7 Plt Count 66 L MPV 11.2 Immature Gran % (Auto) Neut % (Auto) Lymph % (Auto) Forrest % (Auto) Eos % (Auto) Baso % (Auto) Neut # (Auto) Lymph # (Auto) Forrest # (Auto) Eos # (Auto) Baso # (Auto) Immature Gran # (Auto) Absolute Nucleated RBC 0.16 H Nucleated RBC % (auto) 8.1 Neutrophils % (Manual) Lymphocytes % (Manual) Monocytes % (Manual) Eosinophils % (Manual) Myelocytes % (Man) Neutrophils # (Manual) Total Absolute Neuts Lymphocytes # (Manual) Total Abs Lymphocytes Monocytes # (Manual) Eosinophils # (Manual) Myelocytes # (Manual) Toxic Granulation Dohle Bodies Polychromasia Echinocytes Sodium 134 L Potassium 3.9 Chloride 108 H Carbon Dioxide 21 Anion Gap 5 BUN 28 H Creatinine 1.29 Est Cr Clr Drug Dosing 49.5 Est GFR ( Amer) 61.6 Est GFR (Non-Af Amer) 53.1 BUN/Creatinine Ratio 21.7 H Glucose 151 H POC Glucose 163 H Calcium 7.8 L Phosphorus 1.4 L* D Magnesium 2.0 Iron TIBC Unsaturated IBC Transferrin % Sat Total Bilirubin AST Alkaline Phosphatase Triglycerides Vitamin B12 Folate Vancomycin Trough Blood Type Blood Type Recheck Antibody Screen Crossmatch Microbiology 05/16/22 11:59 Blood Aerobic Blood Culture - Preliminary No growth in Aerobic bottle after 24 hours. 05/16/22 11:59 Blood Anaerobic Blood Culture - Preliminary No growth in Anaerobic bottle after 24 hours. 05/16/22 11:59 Blood Aerobic Blood Culture - Preliminary No growth in Aerobic bottle after 24 hours. 05/16/22 11:59 Blood Anaerobic Blood Culture - Preliminary No growth in Anaerobic bottle after 24 hours. 05/15/22 00:47 Urine,Clean Catch Urine Culture - Final No growth - less than 1,000 colonies/mL. 05/15/22 00:42 Blood Aerobic Blood Culture - Final Staphylococcus aureus 05/15/22 00:42 Blood Anaerobic Blood Culture - Final Staphylococcus aureus 05/15/22 01:29 Blood Aerobic Blood Culture - Preliminary No growth in Aerobic bottle after 48 hours. 05/15/22 01:29 Blood Anaerobic Blood Culture - Preliminary No growth in Anaerobic bottle after 48 hours. 05/15/22 06:17 Sputum, Expectorated Gram Stain - Final 05/15/22 06:17 Sputum, Expectorated Sputum Culture - Final Diagnostic Findings Brain MRI 05/15/22 07:59 MRI OF THE BRAIN COMBO CLINICAL HISTORY: Intracranial mass. COMPARISON STUDY: No priors TECHNIQUE: MRI of the brain was performed utilizing various T1 and T2-weighted sequences in the axial, sagittal, and coronal planes. Contrast-enhanced sequences were acquired following the administration of 8 cc of Gadavist. The examination is compromised by motion artifact. FINDINGS: Brain parenchyma: There is age-related complete change noting mild subcortical and periventricular microangiopathic disease. There is no hemorrhage or mass effect. There is no restricted diffusion to suggest acute ischemia. There is an extra-axial mass lesion along the left temporal convexity. The largest nodular component measures 1.7 x 2.0 x 1.1 cm as seen on coronal postcontrast image #18. There is associated pachymeningeal thickening and enhancement along left convexity. There is no clear invasion of the underlying brain parenchyma. This lesion appears to extend through the convexity in the subcutaneous soft tissues. The soft tissue component measures up to 3 cm in length. No additional enhancing intracranial lesion is seen. De León-white matter differentiation is preserved. No extra-axial fluid collection is seen. Mineralization is noted in the basal ganglia. The cerebellar tonsils are normal in configuration. Ventricles, sulci, and cisterns: Prominent secondary to involutional change. Pituitary and sella: Unremarkable. Intracranial vasculature: Normal flow voids are maintained at the skull base. Orbits: The bony orbits are grossly intact. Orbital contents are normal in appearance noting bilateral ocular lens implants. Sinuses and mastoids: Clear. Calvarium: As noted above, the extra-axial lesion along the left temporal convexity. Growth through the calvarium in the scalp. No additional destructive calvarial lesion is suggested. Cervical cord: Partially visualized cervical spinal cord is normal in morphology and signal intensity. IMPRESSION: 1. There is an extra-axial enhancing mass lesion along the left temporal convexity as above. 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 This is pathologically indeterminate, and neoplasm is the diagnosis of exclusion. 2. There is no clear invasion of the underlying brain parenchyma. 3. No additional enhancing intracranial lesion is identified. 4. There is no hemorrhage, mass effect, or evidence of acute ischemia. ACT 112: Negative or not required by law. Electronically signed by: Dileep Butterfield M.D. 05/15/2022 5:15 PM Medications Administered Current Inpatient Medications Cetirizine HCl (Cetirizine Hcl 10 Mg Tablet) 10 mg PO DAILY CROW Stop: 06/14/22 08:59 Last Admin: 05/15/22 12:25 Dose: Not Given Dextrose (Dextrose 50% 50 Ml Syringe) 25 - 50 ml IV UD PRN; Protocol PRN Reason: Hypoglycemia Protocol Stop: 06/14/22 17:13 Docusate Sodium (Docusate Sodium 100 Mg Cap) 100 mg PO BID CROW Stop: 06/14/22 08:59 Last Admin: 05/15/22 12:25 Dose: Not Given Finasteride (Finasteride 5 Mg Tab) 5 mg PO DAILY CROW Stop: 06/14/22 08:59 Last Admin: 05/15/22 12:25 Dose: Not Given Folic Acid (Folic Acid 1 Mg Tab) 1 mg PO DAILY CROW Stop: 06/14/22 08:59 Last Admin: 05/15/22 12:25 Dose: Not Given Glucagon (Glucagon For Inj 1 Mg Vial) 1 mg SQ UD PRN; Protocol PRN Reason: Hypoglycemia Protocol Stop: 06/14/22 17:13 Glucose (Glucose 10 Tab/Tube) 4 - 8 tab PO UD PRN; Protocol PRN Reason: Hypoglycemia Treatment Stop: 06/14/22 17:13 Glucose (Glucose 40% Gel 15 Gm Tube) 15 - 30 gm PO UD PRN; Protocol PRN Reason: Hypoglycemia Protocol Stop: 06/14/22 17:13 Pantoprazole Sodium 40 mg/ (Syringe) 10 mls @ 5 mls/min IV DAILY@1100 CROW Stop: 06/14/22 10:59 Last Admin: 05/17/22 11:47 Dose: 5 mls/min Levothyroxine Sodium 50 mcg/ (Syringe) 2.5 mls @ 2 mls/min IV Q72H CROW; Protocol Stop: 06/15/22 08:59 Last Admin: 05/16/22 10:39 Dose: 2 mls/min Acyclovir Sodium 700 mg/ (Dextrose) 264 mls @ 250 mls/hr IV Q12H CROW; Protocol Stop: 05/26/22 14:29 Last Infusion: 05/18/22 03:55 Dose: Infused Fluconazole (Diflucan) 200 mg in 100 mls @ 100 mls/hr IV DAILY@2100,2200 CROW; Protocol Stop: 05/20/22 20:59 Last Infusion: 05/17/22 23:40 Dose: Infused Vancomycin HCl 1,500 mg/ (Sodium Chloride) 530 mls @ 200 mls/hr IV Q24H CROW; Protocol Stop: 05/31/22 11:59 Last Infusion: 05/17/22 15:08 Dose: Infused Amino Acids 1,777.4 ml/ (Nutrition (Parenteral)) 1,777.4 mls @ 74.06 mls/hr IV .Q24H CROW; Protocol Stop: 05/18/22 15:59 Last Infusion: 05/18/22 08:23 Dose: 0 mls/hr Cefepime HCl 2,000 mg/ Syringe 20 mls @ 5 mls/min IV Q12H CROW; Protocol Stop: 05/31/22 14:29 Last Admin: 05/18/22 02:35 Dose: 5 mls/min Potassium Phosphate 40 mmol/ (Sodium Chloride) 1,013.3333 mls @ 126.667 mls/hr IV ONE ONE Stop: 05/18/22 15:14 Last Admin: 05/18/22 08:22 Dose: 126.7 mls/hr Insulin Aspart (Insulin Aspart Per Unit) 0 units SC Q6 [facility] Stop: 06/14/22 20:59 Last Admin: 05/18/22 06:00 Dose: 1 units Levothyroxine Sodium (Levothyroxine Sodium 75 Mcg Tablet) 75 mcg PO DAILYBB [facility] Stop: 06/14/22 06:59 Last Admin: 05/15/22 12:25 Dose: Not Given Magnesium Oxide (Magnesium Oxide 400 Mg Tab) 400 mg PO DAILY CROW Stop: 06/14/22 08:59 Last Admin: 05/15/22 12:25 Dose: Not Given Metoprolol Tartrate (Metoprolol Tartrate 1 Mg/Ml Vial) 2.5 mg IV Q6 [facility] Stop: 06/15/22 16:29 Last Admin: 05/18/22 06:00 Dose: 2.5 mg Mirtazapine (Mirtazapine Tab 15 Mg Tab) 15 mg PO DAILY [facility] Stop: 06/14/22 08:59 Last Admin: 05/18/22 08:23 Dose: Not Given Miscellaneous (Carbohydrates For Hypoglycemia ) 15 - 30 gm PO UD PRN PRN Reason: Hypoglycemia Protocol Stop: 06/14/22 17:13 Miscellaneous Information (Vancomycin Consult Active) 1 each N/A UD PRN PRN Reason: Consult Stop: 06/14/22 06:07 Miscellaneous Information (Tpn/Ppn Consult Pharmacy) 1 each N/A UD [facility] Stop: 06/15/22 11:45 Multi-Ingredient Mouthwash/Gargle (First - Mouthwash Blm 119 Ml) 5 ml PO BID [facility] Stop: 06/14/22 08:59 Last Admin: 05/18/22 08:23 Dose: 5 ml Ondansetron HCl (Ondansetron Inj 2 Mg/Ml 2 Ml Vial) 4 mg IV Q6H PRN PRN Reason: Nausea Stop: 06/14/22 06:07 Phenol (Chloraseptic 1.4% Soln 180 Ml Btl) 2 sprays MT Q3H PRN PRN Reason: throat pain Stop: 06/14/22 06:07 Prednisone (Prednisone 20 Mg Tab) 20 mg PO DAILY [facility] Stop: 04/08/23 08:59 Last Admin: 05/18/22 08:23 Dose: Not Given Simvastatin (Simvastatin 5 Mg Tab) 5 mg PO QPM [facility] Stop: 06/14/22 20:59 Last Admin: 05/17/22 19:38 Dose: Not Given Sodium Chloride (Sodium Chloride 0.65% Na Soln 45 Ml (Maury)) 2 sprays NA Q4H PRN PRN Reason: dry nose Stop: 06/14/22 17:16
--- NOTE | 2022-05-18 08:45 | Palliative Care Consultation ---
Date of Consultation May 18, 2022 Assessment & Plan (1) Palliative care by specialist: Advised by staff that dtr, Julianne De León ([phone]-Cell Phone - Preferred), requested the palliative med consult. I called Julianne and [facility] requesting call back. Additionally, I called pt Maribell Rogers ([phone]/Home Phone - Preferred) and left message, At time of my visit, pt is alone in his room. He is very hard of hearing. I met with pt and provided overview of Palliative Medicine, a subspecialty that provi yovany specialized medical care for people living with a serious illness by offering a focus on quality of life. Palliative Medicine is often conflated with hospice: I advised patient/family that Palliative and hospice can be partners but we are not the same. It is important to understand the difference so that we may be informed, and not afraid. Palliative Medicine works to improve QOL through reduction of symptom burden/more control over their illness, for both the patient and family. Palliative medicine clinicians are board certified, specially-trained and another member of the patient's medical care team. We often provide an extra layer of support because our care is based on the needs of the patient, not the prognosis; as such, it's appropriate at any age/advancing stage of a serious illness and can be provided along with curative treatment. Palliative Medicine clinicians are also trained in advanced communication methodologies, to facilitate complex discussions about advanced illness planning, which are needed to help assure that the treatment choices match the patient's goals, aka delivering Goal Concordant care. Finally, we discussed that hospice is a visiting nurse service that focuses on care delivered at the very end of life for patients with terminal illness, with life expectancy less than 6 month. (2) Advanced care planning/counseling discussion: A dedicated ACP/GOC Family meeting 1230 x 45 min with , dtr, sons/dtr in law, grand children: they provided me with Mr. Rogers's living will .-it is very clearly done. He does not want any artificial means of prolonging survival including STACIA, PPn, TPN, etc. He does not want CPR. He does not want HD , surgery or other aggressive care. He wants comfort care and symptom mgt. His family is yao desiring we assure he has less pain because his wounds have been worsening and the pain associated with them has worsened, they shared he has been screaming and/or crying with wound care. They all agree he has fought the good fight and has suffered enough. They want him to be more comfortable and they want that to begin in the hospital. In accordance with his living will they want Abtx stopped as well. They know his medical issues are worsening, are not curative and despite treatment escalations he has only worsened. They share that patient is an [place]. 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 He has had numerous exposures occupationally due to his welding and service. He enjoyed his whiskey and believed this added to his QOL. His entire family agree that he knew there were health consequences but he accepted these "because he believed his was his life to live and he was going to live it the way that he wants. He enjoyed himself to this very end and we are ok with that, all that matters is that he is peaceful and does not suffer." They asked about what changes to expect as he continues this process of transitioning from a process of living to a process of dying: TEACHING THE FAMILY WHAT TO EXPECT WHEN THE PATIENT IS DYING (from Ashok Orantes MD, PhD) Introduction: Family members look to the medical team to help them know what to expect when a loved one is dying. No matter the underlying causes, there is a common final pathway that most patients travel. 1. Social Withdrawal is normal for the dying patient as the person becomes less concerned about his or her surroundings. Separation begins first from the world no more interest in newspaper or television, then from people no more neighbors visiting, and finally from the children, grandchildren and perhaps even those persons most loved. With this withdrawal comes less of a need to communicate with others, even with close family. 2. Food: The patient will have a decreased need for food and drink as the body is preparing to . This is one of the hardest things for some family to accept. There is a gradual decrease in interest in eating and appetiteeven for their favorite foods. Interest may come and go. The patient is not starving to deaththis reflects the underlying disease. Liquids are preferred to solidsfollow the patients lead and do not force feed. 3. Sleep: The patient will spend more and more time sleeping; it may be difficult for them to keep their eyes open. This is a result of a change in the bodys metabolism as a result of the disease. Tell family to spend more time with the patient during those times when he/she is most alert; this might be the middle of the night. 4. Disorientation: The patient may become confused about time, place and the identity of people around him/her. He/she may see people who are not there, such as family members who have already . Sometimes patients describe welcoming or beckoning. While the patient may not be distressed, it is frequently distressing to family or health critical care physician assistant. Gently orient the patient if he or she asks. There is no need to correct the patient if he or she is not distressed. 5. Restlessness: The patient may become restless and pull at the bed linens. These symptoms are also a change in the bodys metabolism. Talk calmly and assuredly with the patient so as not to startle or frighten them. If the patient is a danger to himself or others, you may prescribe sedating neuroleptics (e.g.chlorpromazine), or neuroleptics (e.g. haloperidol) in combination with benzodiazepines (e.g. lorazepam), to help the patient rest. 6. Decreased Senses: Clarity of hearing and vision may decrease. Soft lights in the room may prevent visual misinterpretations. Never assume that the patient cannot hear you, as hearing is the last of the five senses to be lost. 7. Incontinence of urine and bowel movements is often not a problem until is very near. Invite family to participate in direct care; the nurse can help place absorbent pads under the patient for more comfort and cleanliness, or a urinary catheter may be used. The amount of urine will decrease and the urine become darker as becomes near. 8. Physical Changes as approaches: a. The blood pressure decreases; the pulse may increase or decrease. c. The body temperature can fluctuate; fever is common. d. There is increased perspiration often with clamminess. e. The skin color changes: flushed with fever, bluish with cold. A pale yellowish pallor (not to be confused with jaundice) often accompanies approaching . f. Breathing changes also occur. Respirations may increase, decrease or become irregular; periods of no breathing (apnea) are common. g. Congestion will present as a rattling sound in the lungs and/or upper throat. This occurs because the patient is too weak to clear the throat or cough. The congestion can be affected by positioning, may be very loud, and sometimes just comes and goes. Anticholinergic medications (like scopolamine or glycopyrrolate) can help (see Fast Fact #109). Elevating the head of bed and swabbing the mouth with oral swabs give comfort and give the family something to do. h. The arms and legs may become cool to the touch. The hands and feet become pur plish. The knees, ankles and elbows are blotchy. These symptoms are a result of decreased circulation. i. The patient will enter a coma before and not respond to verbal or tactile stimuli. HOW TO KNOW THAT HAS OCCURRED No breathing and heartbeat. Loss of control of bowel or bladder. No response to verbal commands or gentle shaking. Eyelids slightly open; eyes fixed on a certain spot. Jaw relaxed and mouth slightly open. Acknowledgement: This Fact Fact was adapted with permission from a family information handout (The Blue Sheet) given to families of [facility]. References 1. Keshav R, Tigre I. The terminal phase. In: Chin Jackson, Arvind CHARLTON, Peggy Santos, eds. [place] Textbook of Palliative Medicine. 2nd ed. [place], [place]: [employer]; 1998. 2. Kilo J, Grant C. Care of the dying patient: the last hours or days of life. BMJ. 2003; 326(4253):30-4. 3. Luis Alberto FD, peg Espinal CF, Pawan LL. Competency in End of Life Care: the last hours of living. J Palliat Med. 2003; 6(4):605-613. Discussed changes pt may move through in the dying process including but not limited to sleeping more, disorientation when awake, restlessness, diminished senses/inability to respond to stimulus although ability to be aware of them remains intact longer, changes in body temperatures, skin changes/mottling/cyanosis, respiratory pattern changes, oral secretions. Family verbalized understanding. The goal is to assure a peaceful . (3) Bacteremia due to Staphylococcus: (4) Bullous pemphigoid: on methotrexate, adv stages (5) Brain mass: (6) Methotrexate, termite treater, current use: (7) Weakness: (8) Acute kidney injury: (9) Alcoholic cirrhosis: (10) Cardiomyopathy: (11) Mild cognitive impairment: (12) Stage 4 chronic kidney disease due to benign hypertension: (13) DM (diabetes mellitus): (14) CAD (coronary artery disease): Plan Move to comfort care, in accordance with patient's living will and his expressed wishes to family which was affirmed by all of them this afternoon. We will stop Abtx, IVF, artificial nutrition, labs etc., and assure good relief of pain and distress: orders written. I offered cultural and spiritual support. Dtr noted pt was raised alevism but did not practice in his adulthood. did not want Last Rites and felt pt would not want this for himself. Family add that he left clear wishes for what he wanted after he ie cremation and then where he would be interred. I have updated nursing, care mgt, primary team. Rhona Cantu DNP Clinical Director, Palliative Medicine History of Present Illness Reason for Consultation: On 05/17/22 @ 22:07 Lynette Leija Wrote To Virginia Dunaway (2) palliative care request per family Attending Physician: Justen Everett History of Present Illness Surjit Rogers presented 05/15/22 with c/o fever. He was recently admitted 05/02 - 05/05/22 for poor nutrition, MALGORZATA, hyponatremia and exac of his bullous pemphigoid. He is on chronic Methotrexate (MTX.)3r He has been found to have staph aureus bacteremia. Seen by ID and neutropenia felt to be likely due to MTX use PMH: Bullous pemphigoid, alcoholic cirrhosis, anemia, depression, GERD, hypothyroidism, CKD4, CAD, HTN, HLD, HFpEF. On arrival to our ED, he was noted to be febrile and tachycardic. WBC was 0.46, Hgb 9.7/Hct 28.8/Plt 110. NA was 130. Sheet Heater 1.71, lactate 1.5 and troponin 22. He was started on cefepime and IVF in ED. he has significant hearing deficit and is often unable to engage in evaluation/discussion. reported that he has been c/o sore throat in the days leading to admission with declining oral intake. Allergies Allergy/AdvReac Type Severity Reaction Status Date / Time No Known Allergies Allergy Unverified 05/11/22 10:58 Home Medications Medication Instructions Recorded Confirmed Type blood sugar diagnostic (OneTouch #10 ea 08/11/18 05/11/22 Rx Ultra Blue Test Strip) blood-glucose meter (OneTouch #1 ea 08/11/18 05/11/22 Rx Ultra2 Meter kit) finasteride 5 mg tablet 5 mg PO DAILY #90 tabs 08/11/18 05/15/22 Rx lancets (GC AestheticsTouch UltraSoft #50 ea 08/11/18 05/11/22 Rx Lancets) mirtazapine 15 mg tablet 15 mg PO DAILY #30 tabs 08/11/18 05/15/22 Rx tamsulosin 0.4 mg capsule 0.4 mg PO DAILY #30 caps 12/29/20 05/15/22 Rx aspirin 81 mg tablet,delayed 81 mg PO DAILY 04/28/21 05/15/22 History release (Meseret Low Dose Aspirin) cyclobenzaprine 10 mg tablet 10 mg PO HS PRN muscle spasm 05/31/21 05/15/22 History magnesium oxide 420 mg tablet 420 mg PO DAILY 05/31/21 05/15/22 History psyllium husk 0.52 gram capsule 0.52 g PO DAILY #30 caps 06/02/21 05/15/22 Rx (Daily Fiber) levothyroxine 75 mcg tablet 75 mcg PO DAILY #30 tabs 07/31/21 05/15/22 Rx triamcinolone acetonide 0.1 % 1 applic topical DAILY PRN itching 11/09/21 05/15/22 Rx topical cream #80 grams guaifenesin 400 mg tablet 400 mg PO BID PRN cough #30 tabs 11/10/21 05/15/22 Rx betamethasone dipropionate 0.05 % 1 applic topical BID PRN skin 11/21/21 05/15/22 Rx topical cream irritation #45 grams spironolactone 25 mg tablet 25 mg PO DAILY #90 tabs 12/05/21 05/15/22 Rx levocetirizine 5 mg tablet 5 mg PO DAILY #90 tabs 02/09/22 05/15/22 Rx metoprolol tartrate 25 mg tablet 25 mg PO DAILY 03/21/22 05/15/22 History nystatin 100,000 unit/gram topical 1 applic topical BID #30 grams 03/21/22 05/15/22 Rx ointment simvastatin 10 mg tablet 5 mg PO QPM 03/21/22 05/15/22 History calamine 3 %-zinc oxide 3 %-gauze #2 ea 04/20/22 05/11/22 Rx bandage 4" X 10 yard (Unna Boot Zinc-Calamine) pantoprazole 40 mg tablet,delayed 40 mg PO BID #180 tabs 05/01/22 05/15/22 Rx release folic acid 1 mg tablet 1 mg PO DAILY 05/02/22 05/15/22 History mecobalamin (vitamin B12) 1,000 0 mcg PO DAILY 05/02/22 05/15/22 History mcg chewable tablet (B12 Active) methotrexate sodium 2.5 mg tablet 12.5 mg PO WK 05/02/22 05/15/22 History linagliptin 5 mg tablet (Tradjenta) 5 mg PO DAILY #90 tabs 05/11/22 05/15/22 Rx Patient History Medical History (Updated 05/18/22 @ 09:25 by Dada Berman MD) Acute hyponatremia Acute kidney injury Acute pain of mouth Advanced care planning/counseling discussion Alcoholic cirrhosis Anemia Arthritis Ascites due to alcoholic cirrhosis Boil of groin BPH (benign prostatic hyperplasia) CAD (coronary artery disease) Cardiomyopathy CHF (congestive heart failure) Chronic rhinitis Depression DM (diabetes mellitus) GERD without esophagitis Hearing difficulty of both ears History of GI bleed HTN (hypertension) Hyperlipidemia Hypothyroidism (acquired) Insomnia Low magnesium levels Mild cognitive impairment Neuropathy Oropharyngeal dysphagia Palliative care by specialist Peripheral neuropathy Stage 4 chronic kidney disease due to benign hypertension Testicular nodule Vitamin D deficiency Surgical History H/O hand surgery History of back surgery S/P cataract surgery S/P cholecystectomy S/P shoulder surgery Family History Mother Ovarian cancer Denies family history of Prostate cancer Myocardial infarction Breast cancer Colorectal cancer Social History Smoking Status: Never smoker Tobacco Type: Cigarettes Cigarettes Per Day: Uncertain of amt.; Second Hand Exposure: No; Hx Alcohol Use: Yes Alcohol type: beer Alcohol Intake Frequency: 4 or More x per/Week Hx Substance Use: No Preferred Language: Tajik Communication Ability: Effective Visual Impairment: No Limitations Hearing Ability: Use of Hearing Aid Educational Advisor Required: No Beliefs That Will Affect Care: None marital status: Current Living Situation: Spouse current occupational status: retired Feels Safe at Home: Yes Childhood Exposure to Second-Hand Smoke: Yes Diet Comment: barely eats as per caffeine: No during the past year weight has: remained stable Dental Care, Regularly: No Physical Activity Frequency: Does not Exercise Seatbelt Use: always Sunscreen Use: No Assistive Devices: Lift Chair, Walker, Wheelchair and Other Review of Systems Review of Systems: Unobtainable due to cognitive status Physical Exam Constitutional: + acute distress, + ill appearing, + altered mental status, + frail appearing and + malnourished Eyes: + anicteric sclerae and PERRL ENMT: Mouth: + dry oral mucous membranes and + poor dentition Neck: normal visual inspection and trachea midline Thyroid: normal thyroid Respiratory: normal respiratory effort Auscultation: + diminished lung sounds and + rhonchi Cardiovascular: Rate/Rhythm: + tachycardic Gastrointestinal (Abdomen): Inspection/Auscultation: normal bowel sounds Percussion/Palpation: abdomen soft Musculoskeletal: generalized weakness Skin: wounds: left heel, buttocks, bilat legs and arms, toes Neurologic: awake and + confused cam icu+ Results & Data ([facility]) Vital Signs (Past 12 Hours) Vital Signs Temp Pulse Pulse Resp BP BP Pulse Ox 05/18/22 08:02 36.7 C 95 H 15 136/72 98 05/18/22 06:00 109 H 118/87 05/18/22 00:17 111 H 113/83 05/18/22 00:01 36.7 C 116 H 18 113/83 99 05/17/22 23:28 105 H O2 Del Method 05/18/22 08:02 Room Air 05/18/22 06:00 05/18/22 00:17 05/18/22 00:01 Room Air 05/17/22 23:28 Laboratory Results data reviewed Diagnostic Findings data reviewed PG Care Time/CCT Total # of Minutes Spent Total Time Spent: 125 Total Time Spent with Patient: Total time spent is greater than 50% in coordination of care (as documented) at patient's floor/unit and/or counseling patient: I spent 125 minutes overall addressing this case: 20 in medical data review/discussion with referring provider(s) and/or preparation for the visit 30 in direct interaction with the patient ] 45 Advance Care Planning/Goals of Care discussions as detailed ab ove in note (must be >16min) 15 in subsequent review and synthesis of assessment and plan 15 in communicating with other providers regarding the patient's case: nursing, care mgt, primary team Prolonged Care Time Prolonged Care Time: Yes Critical Care Time: No Advanced Care Planning 28662 Advanced Care Planning 30 Min 45337 Advanced Care Planning Additional 30 [place] [address] IN/OBS CONSULT LVL 5,80M Patient Type New History Comprehensive Exam Comprehensive Medical Decision Making High Complexity Diagnoses Palliative care by specialist Z51.5 Advanced care planning/counseling discussion Z71.89 Bacteremia due to Staphylococcus R78.81; B95.8 Bullous pemphigoid L12.0 Brain mass G93.89 Methotrexate, termite treater, current use Z79.631 Weakness R53.1 Acute kidney injury N17.9 Alcoholic cirrhosis K70.30 Cardiomyopathy I42.9 Mild cognitive impairment G31.84 Stage 4 chronic kidney disease due to benign hypertension I12.9; N18.4 DM (diabetes mellitus) E11.9 CAD (coronary artery disease) I25.10 Additional Codes Advanced Care Planning - 56642 Advanced Care Planning 30 Min: 99827 Advanced Care Planning 30 Min ([id number]) Advanced Care Planning - 55906 Advanced Care Planning Additional 30 Min: 95420 Advanced Care Planning Additional 30 Min ([id number]) Prolonged Care Time - Prolonged Care Time: Yes ([id number])
--- NOTE | 2022-05-18 09:22 | Consultation ---
Date of Consultation May 18, 2022 Assessment & Plan (1) Pancytopenia: I had been "robbie" consulted earlier in the week and at that time indicated that it was not clear there was a specific role for myeloid growth factors. At the time I got the impression that methotrexate has only been stopped recently though some notes say that it may have been stopped sometime ago. If there has been recent use of methotrexate, he would have been much more vulnerable to pancytopenia as a result and certainly there can be fairly severe marrow suppression that can result even from moderate doses cumulatively if there is any metabolic reason for delayed excretion (such as ascites which he has) or less than optimal compliance with the supplemental folic acid. Whether or not methotrexate has been recently given, certainly sepsis can lead to blake marrow suppression and pancytopenia as well. Nutritional studies seem to be adequate so are probably not contributing to his ongoing pancytopenia In terms of numerical levels of counts, platelets over 50,000 should be numerically adequate for the use of prophylactic anticoagulation and most invasive interventions short of anything that is ophthalmologic or neurosurgical. No platelet count can prevent bleeding in general especially if there is any concern over platelet dysfunction. Hemoglobin levels above 7.5 to 8 g/dL even in the intensive care setting have generally been considered to be acceptable unless there are acute cardiac symptoms or immediately unstable cardiovascular status. In general, neutrophil counts over 1000 should also be adequate similarly so long as there are no major functional issues. Even in the 500-1000 range, neutrophil function is generally sufficient in other than immediately unstable patients who are being managed with ongoing antibiotics and there is an expectation of recovery. Myeloid growth factors play a role more in the prophylaxis against neutropenic fever then in its active treatment. Per up-to-date, "[place]-stimulating factors (CSFs; also known as myeloid growth factors or hematopoietic growth factors), such as granulocyte and granulocyte-macrophage colony-stimulating factors (G-CSF and GM-CSF), are generallynotrecommended for the management of patients with established fever and neutropenia, with some exceptions. " Especially since there does seem to be some WBC recovery, whether the mechanism is attributed to methotrexate and/or sepsis he seems to be coming out of his more severe neutropenia. Would continue to include a specific differential in his labs so that we can particularly track for neutrophil counts. I do not see a role for myeloid growth factors at this time. If he were to show a dramatic deterioration, could consider at that point. In general, use of myeloid growth factors for established neutropenia does not accomplish any fundamental goals of improved outcomes or survival but only technical and very modest changes in length of hospitalization or antibiotic administration Neither is there a specific role for LIZETT's. If he were to relapse with pancytopenia might need to consider transfusion but both his Red cell and platelet numbers are at this time more than adequate. If there is less than a more complete recovery in the days ahead, diagnostic bone marrow aspiration and biopsy could be considered. If that is at all a potential consideration, that is all the more reason NOT to use growth factors that might confuse the interpretation of any marrow that is performed. His overall prognosis seems quite guarded and it is not clear that more than basic support for hematologic issues is appropriate unless there is a clear ex pectation that we can dramatically impact upon his long-term issues particularly with respect to the LIME BURNER mass and his pemphigoid Plan 1. I do not see a role for myeloid growth factors at this time. Would continue to include differential and especially if his neutrophils remain above 1000 simply monitor. If there is a significant fall in neutrophil counts and worsening of his overall status, there could be some consideration for them at that time 2. Red cell and platelet numbers are adequate and need either transfusion nor LIZETT's, see detailed review above 3. I did not specifically comment on the LIME BURNER mass, if that is requiring immediate input please let me know and I can further discuss but clearly his overall performance status is significantly compromised, he has multiple and significant comorbidities particular with regards to the pemphigoid, palliative care is appropriately involved in starting to discuss goals and parameters of care. 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 His history and current issues are well-documented in the hospitalist and infectious disease notes, I will focus on the specific question regarding his pancytopenia. Current WBC is approximately 2000, doubling since yesterday. Hemoglobin is 9.3 and platelets 66,000. Those are relatively stable from previous. Differential is not available from today but his ANC yesterday was 0.73 which represents an approximately 80% fraction suggesting that his ANC today may be approximately 1504-9852. Creatinine is 1.29. His B12 and folic acid are well in normal to above normal range, Percent iron saturation is 25%. Although the ferritin was not rechecked this admission it has been historically well into triple digits Allergies Allergy/AdvReac Type Severity Reaction Status Date / Time No Known Allergies Allergy Unverified 05/11/22 10:58 Home Medications Medication Instructions Recorded Confirmed Type blood sugar diagnostic (ScrewpulpTouch #10 ea 08/11/18 05/11/22 Rx Ultra Blue Test Strip) blood-glucose meter (ScrewpulpTouch #1 ea 08/11/18 05/11/22 Rx Ultra2 Meter kit) finasteride 5 mg tablet 5 mg PO DAILY #90 tabs 08/11/18 05/15/22 Rx lancets (ScrewpulpTouch UltraSoft #50 ea 08/11/18 05/11/22 Rx Lancets) mirtazapine 15 mg tablet 15 mg PO DAILY #30 tabs 08/11/18 05/15/22 Rx tamsulosin 0.4 mg capsule 0.4 mg PO DAILY #30 caps 12/29/20 05/15/22 Rx aspirin 81 mg tablet,delayed 81 mg PO DAILY 04/28/21 05/15/22 History release ([place] Low Dose Aspirin) cyclobenzaprine 10 mg tablet 10 mg PO HS PRN muscle spasm 05/31/21 05/15/22 History magnesium oxide 420 mg tablet 420 mg PO DAILY 05/31/21 05/15/22 History psyllium husk 0.52 gram capsule 0.52 g PO DAILY #30 caps 06/02/21 05/15/22 Rx (Daily Fiber) levothyroxine 75 mcg tablet 75 mcg PO DAILY #30 tabs 07/31/21 05/15/22 Rx triamcinolone acetonide 0.1 % 1 applic topical DAILY PRN itching 11/09/21 05/15/22 Rx topical cream #80 grams guaifenesin 400 mg tablet 400 mg PO BID PRN cough #30 tabs 11/10/21 05/15/22 Rx betamethasone dipropionate 0.05 % 1 applic topical BID PRN skin 11/21/21 05/15/22 Rx topical cream irritation #45 grams spironolactone 25 mg tablet 25 mg PO DAILY #90 tabs 12/05/21 05/15/22 Rx levocetirizine 5 mg tablet 5 mg PO DAILY #90 tabs 02/09/22 05/15/22 Rx metoprolol tartrate 25 mg tablet 25 mg PO DAILY 03/21/22 05/15/22 History nystatin 100,000 unit/gram topical 1 applic topical BID #30 grams 03/21/22 05/15/22 Rx ointment simvastatin 10 mg tablet 5 mg PO QPM 03/21/22 05/15/22 History calamine 3 %-zinc oxide 3 %-gauze #2 ea 04/20/22 05/11/22 Rx bandage 4" X 10 yard (Unna Boot Zinc-Calamine) pantoprazole 40 mg tablet,delayed 40 mg PO BID #180 tabs 05/01/22 05/15/22 Rx release folic acid 1 mg tablet 1 mg PO DAILY 05/02/22 05/15/22 History mecobalamin (vitamin B12) 1,000 0 mcg PO DAILY 05/02/22 05/15/22 History mcg chewable tablet (B12 Active) methotrexate sodium 2.5 mg tablet 12.5 mg PO WK 05/02/22 05/15/22 History linagliptin 5 mg tablet (Tradjenta) 5 mg PO DAILY #90 tabs 05/11/22 05/15/22 Rx Patient History Medical History (Updated 05/18/22 @ 09:25 by Dada Berman MD) Acute hyponatremia Acute kidney injury Acute pain of mouth Advanced care planning/counseling discussion Alcoholic cirrhosis Anemia Arthritis Ascites due to alcoholic cirrhosis Boil of groin BPH (benign prostatic hyperplasia) CAD (coronary artery disease) Cardiomyopathy CHF (congestive heart failure) Chronic rhinitis Depression DM (diabetes mellitus) GERD without esophagitis Hearing difficulty of both ears History of GI bleed HTN (hypertension) Hyperlipidemia Hypothyroidism (acquired) Insomnia Low magnesium levels Mild cognitive impairment Neuropathy Oropharyngeal dysphagia Palliative care by specialist Peripheral neuropathy Stage 4 chronic kidney disease due to benign hypertension Testicular nodule Vitamin D deficiency Surgical History H/O hand surgery History of back surgery S/P cataract surgery S/P cholecystectomy S/P shoulder surgery Family History Mother Ovarian cancer Denies family history of Prostate cancer Myocardial infarction Breast cancer Colorectal cancer Social History Smoking Status: Never smoker Tobacco Type: Cigarettes Cigarettes Per Day: Uncertain of amt.; Second Hand Exposure: No; Hx Alcohol Use: Yes Alcohol type: beer Alcohol Intake Frequency: 4 or More x per/Week Hx Substance Use: No Preferred Language: Micronesian Communication Ability: Effective Visual Impairment: No Limitations Hearing Ability: Use of Hearing Aid Parking Lot Attendant And Cashier Required: No Beliefs That Will Affect Care: None marital status: Current Living Situation: Spouse current occupational status: retired Feels Safe at Home: Yes Childhood Exposure to Second-Hand Smoke: Yes Diet Comment: barely eats as per caffeine: No during the past year weight has: remained stable Dental Care, Regularly: No Physical Activity Frequency: Does not Exercise Seatbelt Use: always Sunscreen Use: No Assistive Devices: Lift Chair, Walker, Wheelchair and Other Physical Exam Physical Exam: He is afebrile, quite ill-appearing but not "toxic" He has multiple skin lesions and both upper extremities are wrapped in gauze. I can find no grossly abnormal adenopathy in the cervical supraclavicular or axillary regions. Lungs show no gross focal changes Cardiac rhythm is regular and blood pressure is adequate, he is not currently tachycardic Abdomen seems grossly stable Results & Data ([facility]) Vital Signs (Past 12 Hours) Vital Signs Temp Pulse Pulse Resp BP BP Pulse Ox 05/18/22 08:02 36.7 C 95 H 15 136/72 98 05/18/22 06:00 109 H 118/87 05/18/22 00:17 111 H 113/83 05/18/22 00:01 36.7 C 116 H 18 113/83 99 05/17/22 23:28 105 H O2 Del Method 05/18/22 08:02 Room Air 05/18/22 06:00 05/18/22 00:17 05/18/22 00:01 Room Air 05/17/22 23:28 PG Care Time/CCT Total # of Minutes Spent Total Time Spent with Patient: Total time spent is greater than 50% in coordination of care (as documented) at patient's floor/unit and/or counseling patient: [place] [address] IN/OBS CONSULT LVL 4,60M Patient Type New History Problem Focused Exam Expanded Problem Focused Medical Decision Making Moderate Complexity Diagnoses Pancytopenia D61.818
[2022-05-18 09:38] LABS: ALC (manual) 1.18 K/uL (1.2-3.4); ANC (manual) 0.32 K/uL (1.4-6.5); Eosinophils # (manual) 0.39 K/uL (0-0.50); Eosinophils % (manual) 20 %; Lymphocytes # (manual) 1.18 K/uL (1.2-3.4); Lymphocytes % (manual) 60 %; Monocytes # (manual) 0.08 K/uL (0.11-0.59); Monocytes % (manual) 4 %; Neutrophils # (manual) 0.32 K/uL (1.40-6.50); Neutrophils % (manual) 16 %
[2022-05-18] MEDS ORDERED: VANCOMYCIN CONSULT ACTIVE PRN (09:46)
[2022-05-18] MEDS ORDERED: ceFAZolin 1000MG 1,000 MG/7.5 ML SYR IV SCH (10:00)
[2022-05-18] MEDS ORDERED: HYDROmorphone INJ 0.5 MG/0.5 ML SYR IV PRN ×2 (10:48→13:35)
[2022-05-18] MEDS: PANTOprazole 40 MG in SYRINGE 0 ML IV SCH (10:53)
[2022-05-18] MEDS ORDERED: VANCOMYCIN HCL 1,500 MG in SODIUM CHLORIDE 0.9% 500 ML IV SCH (12:00)
[2022-05-18] MEDS: HYDROmorphone INJ 0.5 MG/0.5 ML SYR IV PRN (14:54)
[2022-05-18] MEDS: LORazepam 2 MG/1 ML VIAL IV PRN (15:43)
[2022-05-18] MEDS ORDERED: CLINOLIPID 20% IV FAT EMULSION 250 ML IV SCH (16:00)
[2022-05-18] MEDS ORDERED: PERIPHERAL TPN IV SCH (16:00)
[2022-05-18] MEDS ORDERED: [UNRECOGNIZED DRUG - OTHER] IV SCH (16:00)
[2022-05-18] MEDS ORDERED: FLUCONAZOLE 200 MG/100 ML BAG IV SCH (21:00)
--- NOTE | 2022-05-18 21:18 | Hospitalist Progress Note ---
Date of Service May 18, 2022 Assessment & Plan (1) Neutropenic fever: Plan: -Acute serious risk- meeting sepsis criteria on presentation now resolved -consider skin source with bullous pemphigoid, preliminary is Gr + chains TTe completed:, ID evaluation completed throat pain, out pt CT neck Mild thickening of posterior pharyngeal rawls at level of piriform sinuses symptomatic treatment patient having nosebleeds which was controlled with Afrin given pancytopenia start antivirals and antifungals -cultures final: showing staph aureus. -Neutropenic precautions -Empiric coverage with broad spectrum antibiotics- vancomycin and cefepime acyclovir and diflucan Bullous pemphigoid, new diagnosis ,methotrexate held, on stress steroids with lower bp on presentation pancytopenia due to chemotherapy, anemia likely secondary to chronic disease, will monitor on 05/17 will check iron studies and folic acid and B12. Levels do not suggest iron def. anemia, folic acid def, or B12 def. Bullous pemphigoid carries a poor prognosis, his senior librarian relayed to me that majority pass away within a month of the diagnosis. Patient seen in AM, family not in room. Palliative care consult however completed later in day. Patient will be transitioned to comfort measures only. Will transfer patient to medical. Discussed with palliative care. (2) CHF (congestive heart failure): Plan: -Chronic and stable diastolic heart failure Last echocardiogram 08/30 with EF 70- 75% acute elevation of troponin, is low level but likley demand ischemia in setting of illness Continue metoprolol, simvastatin-Holding aspirin for thrombocytopenia Questionable swallowing status we are holding his statin aspirin converting metoprolol to IV (3) Brain mass: Plan: -MRI [facility] [place] 03/2022- extra axial mass of L parietal lobe with dural thickening from frontal lobe to occipital lobe on left, 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 This is pathologically indeterminate, and neoplasm is the diagnosis of exclusion. Our Comic Book Writer is out of the country but took a phone call 05/16/2022. 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 Apically does not bleed significantly but he is pancytopenic which may institute that. Subsequently we are looking to try to see if we can get a biopsy of this at outside facility. I phoned both [facility] and [facility]. I was initially denied at [facility] for possible transfer [facility] was denied. For now, Brain mass does not appear to be growing, as radiologist compared both images on 05/17 (Shalini images were sent here electronically). However patient is now being transitioned to comfort measures only. (4) DM (diabetes mellitus): Plan: chronic and stable , -A1C 7.4% in 05/03 -Initiate basal insulin + SSI once pt tolerating diet to the n.p.o. status we will reduce basal insulin (5) Stage 4 chronic kidney disease due to benign hypertension: Plan: -Chronic and stable baseline Cr appears around 2 -Stable, trend BMP (6) Anemia: Plan: Chronic unclear if stable-Hgb 9.7, baseline appears around 10-11 anemia of chronic disease -Possibly of acute blood loss anemia from normal coastal bleeding. Patient transfused 2 units packed red blood cells on protein pump inhibitor (7) Ascites due to alcoholic cirrhosis: Plan: -Regular ETOH consumption ongoing, pt not interested in cessation -Continue spironolactone -Continue cefepime/vancomycin at present (8) Depression: Plan: -Chronic and stable continue mirtazapine (9) GERD without esophagitis: Plan: -Chronic and stable patient with swallowing difficulties or pain with swallowing pantoprazole 40 [address] IV daily in place of home PO pantoprazole (10) Hypothyroidism (acquired): Plan: -Continue levothyroxine will convert to IV at this time (11) BPH (benign prostatic hyperplasia): Plan: chronic stable no LUTS -Continue tamsulosin, finasteride (12) Bullous pemphigoid: Plan: receiving stress steroids. Plan Code status: Full DVT ppx: SCDs, defer chemoprophylaxis with thrombocytopenia Admission and Anticipated Discharge Date Admission Date: May 15, 2022 Subjective Patient appears confused. Review of Systems Review of Systems: Unobtainable due to cognitive status Physical Exam Physical Exam: pt is chronically ill Multiple open areas of his skin various stages of depth worsened this is left heel photographs in the wound care nurse section wound care applied today. oral lesions are crusted but not with visable ulcers, vesicles or thrush appearing Card exam is regular with a murmur he is tachycardic Lungs are clear diminished at the bases abdomen NABS soft and nontender Results & Data Results & Data ([facility]) Vital Signs (Past 12 Hours) Vital Signs Temp Pulse Pulse Resp BP BP Pulse Ox 05/18/22 17:44 05/18/22 10:56 36.5 C 102 H 21 118/71 97 05/18/22 13:05 107 H 118/71 O2 Del Method 05/18/22 17:44 Room Air 05/18/22 10:56 Room Air 05/18/22 13:05 PG Care Time/CCT Total # of Minutes Spent Total Time Spent with Patient: Total time spent is greater than 50% in coordination of care (as documented) at patient's floor/unit and/or counseling patient: Coding Level of Care Code 65239 SUB INP/OBS CARE 3/50MIN Diagnoses Neutropenic fever D70.9; R50.81 CHF (congestive heart failure) I50.9 Brain mass G93.89 DM (diabetes mellitus) E11.9 Stage 4 chronic kidney disease due to benign hypertension I12.9; N18.4 Anemia D64.9 Ascites due to alcoholic cirrhosis K70.31 Depression F32.9 GERD without esophagitis K21.9 Hypothyroidism (acquired) E03.9 BPH (benign prostatic hyperplasia) N40.0 Bullous pemphigoid L12.0
[2022-05-19] MEDS: HYDROmorphone INJ 0.5 MG/0.5 ML SYR IV PRN ×3 (03:20→15:03)
[2022-05-19] MEDS: LORazepam 2 MG/1 ML VIAL IV PRN ×3 (04:57→16:08)
[2022-05-19] MEDS: FIRST - Mouthwash BLM 119 ML PO SCH ×2 (07:28→21:10)
[2022-05-19] MEDS: GLYCOPYRROLATE 0.2 MG/ML VIAL IV PRN ×2 (09:50→14:36)
[2022-05-19] MEDS ORDERED: MoRPHine SULFATE 10 MG/0.5 ML UDP PO PRN (16:19)
[2022-05-19] MEDS ORDERED: LORazepam 1 MG TAB SL PRN ×2 (16:41→17:57)
[2022-05-19] MEDS: MoRPHine SULFATE 10 MG/0.5 ML UDP PO PRN ×2 (17:40→21:19)
--- NOTE | 2022-05-19 21:42 | Hospitalist Progress Note ---
Date of Service May 19, 2022 Assessment & Plan (1) Neutropenic fever: Plan: -Acute serious risk- meeting sepsis criteria on presentation now resolved -consider skin source with bullous pemphigoid, preliminary is Gr + chains TTe completed:, ID evaluation completed throat pain, out pt CT neck Mild thickening of posterior pharyngeal rawls at level of piriform sinuses symptomatic treatment patient having nosebleeds which was controlled with Afrin given pancytopenia start antivirals and antifungals -cultures final: showing staph aureus. -Neutropenic precautions -Empiric coverage with broad spectrum antibiotics- vancomycin and cefepime acyclovir and diflucan Bullous pemphigoid, new diagnosis ,methotrexate held, on stress steroids with lower bp on presentation pancytopenia due to chemotherapy, anemia likely secondary to chronic disease, will monitor on 05/17 will check iron studies and folic acid and B12. Levels do not suggest iron def. anemia, folic acid def, or B12 def. Bullous pemphigoid carries a poor prognosis, his workers compensation adjuster relayed to me that majority pass away within a month of the diagnosis. Patient seen in AM, family not in room. Palliative care consult however completed later in day. Patient will be transitioned to comfort measures only. Will transfer patient to medical. Discussed with palliative care. Remains on comfort measures on 05/19 switched meds to PO as patient no longer has an IV site. (2) CHF (congestive heart failure): Plan: -Chronic and stable diastolic heart failure Last echocardiogram 08/30 with EF 70- 75% acute elevation of troponin, is low level but likley demand ischemia in setting of illness Continue metoprolol, simvastatin-Holding aspirin for thrombocytopenia Questionable swallowing status we are holding his statin aspirin converting metoprolol to IV (3) Brain mass: Plan: -MRI [facility] 03/2022- extra axial mass of L parietal lobe with dural thickening from frontal lobe to occipital lobe on left, 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 This is pathologically indeterminate, and neoplasm is the diagnosis of exclusion. Our Calculation Clerk is out of the country but took a phone call 05/16/2022. 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 Apically does not bleed significantly but he is pancytopenic which may institute that. Subsequently we are looking to try to see if we can get a biopsy of this at outside facility. I phoned both [facility] and [facility]. I was initially denied at [facility] for possible transfer [facility] was denied. For now, Brain mass does not appear to be growing, as radiologist compared both images on 05/17 (Shalini images were sent here electronically). However patient is now being transitioned to comfort measures only. below was plan prior to comofrt measures. (4) DM (diabetes mellitus): Plan: chronic and stable , -A1C 7.4% in 05/03 -Initiate basal insulin + SSI once pt tolerating diet to the n.p.o. status we will reduce basal insulin (5) Stage 4 chronic kidney disease due to benign hypertension: Plan: -Chronic and stable baseline Cr appears around 2 -Stable, trend BMP (6) Anemia: Plan: Chronic unclear if stable-Hgb 9.7, baseline appears around 10-11 anemia of chronic disease -Possibly of acute blood loss anemia from normal coastal bleeding. Patient transfused 2 units packed red blood cells on protein pump inhibitor (7) Ascites due to alcoholic cirrhosis: Plan: -Regular ETOH consumption ongoing, pt not interested in cessation -Continue spironolactone -Continue cefepime/vancomycin at present (8) Depression: Plan: -Chronic and stable continue mirtazapine (9) GERD without esophagitis: Plan: -Chronic and stable patient with swallowing difficulties or pain with swallowing pantoprazole 40 [address] IV daily in place of home PO pantoprazole (10) Hypothyroidism (acquired): (11) BPH (benign prostatic hyperplasia): Plan: chronic stable no LUTS (12) Bullous pemphigoid: Plan: receiving stress steroids. Plan Code status: Full DVT ppx: SCDs, defer chemoprophylaxis with thrombocytopenia Admission and Anticipated Discharge Date Admission Date: May 15, 2022 Subjective 77 yo male is comofortble in bed Review of Systems Review of Systems: All systems reviewed & are unremarkable except as noted in HPI & below Physical Exam Physical Exam: pt is chronically ill Multiple open areas of his skin various stages of depth worsened this is left heel photographs in the wound care nurse section wound care applied today. oral lesions are crusted but not with visable ulcers, vesicles or thrush appearing Card exam is regular with a murmur he is tachycardic Lungs are clear diminished at the bases abdomen NABS soft and nontender PG Care Time/CCT Total # of Minutes Spent Total Time Spent with Patient: Total time spent is greater than 50% in coordination of care (as documented) at patient's floor/unit and/or counseling patient: Coding Level of Care Code 76360 SUB INP/OBS CARE 2/35MIN Diagnoses Neutropenic fever D70.9; R50.81 CHF (congestive heart failure) I50.9 Brain mass G93.89 DM (diabetes mellitus) E11.9 Stage 4 chronic kidney disease due to benign hypertension I12.9; N18.4 Anemia D64.9 Ascites due to alcoholic cirrhosis K70.31 Depression F32.9 GERD without esophagitis K21.9 Hypothyroidism (acquired) E03.9 BPH (benign prostatic hyperplasia) N40.0 Bullous pemphigoid L12.0
[2022-05-20] MEDS: ATROPINE SULFATE 1% OP SOLN 5 ML BTL PO PRN (06:37)
[2022-05-20] MEDS: MoRPHine SULFATE 10 MG/0.5 ML UDP PO PRN ×4 (06:38→19:55)
[2022-05-20] MEDS: FIRST - Mouthwash BLM 119 ML PO SCH ×2 (10:05→19:53)
--- NOTE | 2022-05-20 13:15 | Hospitalist Progress Note ---
Date of Service May 20, 2022 Assessment & Plan (1) Neutropenic fever: Plan: -Acute serious risk- meeting sepsis criteria on presentation now resolved -consider skin source with bullous pemphigoid, preliminary is Gr + chains TTe completed:, ID evaluation completed throat pain, out pt CT neck Mild thickening of posterior pharyngeal rawls at level of piriform sinuses symptomatic treatment patient having nosebleeds which was controlled with Afrin given pancytopenia start antivirals and antifungals -cultures final: showing staph aureus. -Neutropenic precautions -Empiric coverage with broad spectrum antibiotics- vancomycin and cefepime acyclovir and diflucan Bullous pemphigoid, new diagnosis ,methotrexate held, on stress steroids with lower bp on presentation pancytopenia due to chemotherapy, anemia likely secondary to chronic disease, will monitor on 05/17 will check iron studies and folic acid and B12. Levels do not suggest iron def. anemia, folic acid def, or B12 def. Bullous pemphigoid carries a poor prognosis, his semiconductor development technician relayed to me that majority pass away within a month of the diagnosis. Patient seen in AM, family not in room. Palliative care consult however completed later in day. Patient will be transitioned to comfort measures only. Will transfer patient to medical. Discussed with palliative care. Remains on comfort measures on 05/19 switched meds to PO as patient no longer has an IV site. Patient remains on comfort measures on 05/20 (2) CHF (congestive heart failure): Plan: -Chronic and stable diastolic heart failure Last echocardiogram 08/30 with EF 70- 75% acute elevation of troponin, is low level but likley demand ischemia in setting of illness Continue metoprolol, simvastatin-Holding aspirin for thrombocytopenia Questionable swallowing status we are holding his statin aspirin converting metoprolol to IV (3) Brain mass: Plan: -MRI [facility] 03/2022- extra axial mass of L parietal lobe with dural thickening from frontal lobe to occipital lobe on left, 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 This is pathologically indeterminate, and neoplasm is the diagnosis of exclusion. [place]phalt Tamper [place] a phone call 05/16/2022. 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 Apically does not bleed significantly but he is pancytopenic which may institute that. Subsequently we are looking to try to see if we can get a biopsy of this at outside facility. I phoned both [facility] and [facility]. I was initially denied at [facility] for possible transfer [facility] was denied. For now, Brain mass does not appear to be growing, as radiologist compared both images on 05/17 ([place] images were sent here electronically). However patient is now being transitioned to comfort measures only. below was plan prior to comofrt measures. (4) DM (diabetes mellitus): Plan: chronic and stable , -A1C 7.4% in 05/03 -Initiate basal insulin + SSI once pt tolerating diet to the n.p.o. status we will reduce basal insulin (5) Stage 4 chronic kidney disease due to benign hypertension: Plan: -Chronic and stable baseline Cr appears around 2 -Stable, trend BMP (6) Anemia: Plan: Chronic unclear if stable-Hgb 9.7, baseline appears around 10-11 anemia of chronic disease -Possibly of acute blood loss anemia from normal coastal bleeding. Patient transfused 2 units packed red blood cells on protein pump inhibitor (7) Ascites due to alcoholic cirrhosis: Plan: -Regular ETOH consumption ongoing, pt not interested in cessation -Continue spironolactone -Continue cefepime/vancomycin at present (8) Depression: Plan: -Chronic and stable continue mirtazapine (9) GERD without esophagitis: Plan: -Chronic and stable patient with swallowing difficulties or pain with swallowing pantoprazole 40 [address] IV daily in place of home PO pantoprazole (10) Hypothyroidism (acquired): (11) BPH (benign prostatic hyperplasia): Plan: chronic stable no LUTS (12) Bullous pemphigoid: Plan: receiving stress steroids. Plan Code status: Full DVT ppx: SCDs, defer chemoprophylaxis with thrombocytopenia Admission and Anticipated Discharge Date Admission Date: May 15, 2022 Subjective 77 yo male is resting comfortably. family is at bedside. Review of Systems Review of Systems: Unobtainable due to cognitive status Physical Exam Physical Exam: pt is chronically ill resting comfortably PG Care Time/CCT Total # of Minutes Spent Total Time Spent with Patient: Total time spent is greater than 50% in coordination of care (as documented) at patient's floor/unit and/or counseling patient: Coding Level of Care Code 45741 SUB INP/OBS CARE 04/04MIN Diagnoses Neutropenic fever D70.9; R50.81 CHF (congestive heart failure) I50.9 Brain mass G93.89 DM (diabetes mellitus) E11.9 Stage 4 chronic kidney disease due to benign hypertension I12.9; N18.4 Anemia D64.9 Ascites due to alcoholic cirrhosis K70.31 Depression F32.9 GERD without esophagitis K21.9 Hypothyroidism (acquired) E03.9 BPH (benign prostatic hyperplasia) N40.0 Bullous pemphigoid L12.0
--- NOTE | 2022-05-20 23:20 | Hospitalist Progress Note ---
Date of Service May 20, 2022 Assessment & Plan (1) Pancytopenia: Plan: Notes indicate that the patient has been transition to a comfort care only approach. Plan Per hospitalist notes patient has been transitioned to comfort care only. Hematology will sign off but we are happy to be available if additional questions arise during this admission Admission and Anticipated Discharge Date Admission Date: May 15, 2022 PG Care Time/CCT Total # of Minutes Spent Total Time Spent with Patient: Total time spent is greater than 50% in coordination of care (as documented) at patient's floor/unit and/or counseling patient: Coding Level of Care Code None Diagnoses Pancytopenia D61.818
[2022-05-21] MEDS: FIRST - Mouthwash BLM 119 ML PO SCH ×2 (07:48→20:03)
[2022-05-21] MEDS: MoRPHine SULFATE 10 MG/0.5 ML UDP PO PRN ×2 (07:49→12:11)
[2022-05-21] MEDS: ATROPINE SULFATE 1% OP SOLN 5 ML BTL PO PRN ×3 (08:51→16:36)
[2022-05-21] MEDS ORDERED: HYDROmorphone INJ 0.5 MG/0.5 ML SYR IV PRN (10:26)
[2022-05-21] MEDS ORDERED: LORazepam 2 MG/1 ML VIAL IV PRN (10:27)
[2022-05-21] MEDS ORDERED: HYDROmorphone INJ 1 MG/ML SYRINGE IV PRN (10:27)
[2022-05-21] MEDS ORDERED: MoRPHine SULFATE 10 MG/0.5 ML UDP PO PRN (10:44)
[2022-05-21] MEDS ORDERED: MoRPHine SULFATE 10 MG/0.5 ML UDP PO SCH (15:00)
[2022-05-21] MEDS ORDERED: haloperidoL 1 MG TAB PO SCH (15:00)
--- NOTE | 2022-05-21 15:03 | Palliative Care Progress Note ---
Date of Service May 21, 2022 Assessment & Plan (1) Palliative care by specialist: Plan: A legacy review/supportive counseling was done with and dtr at bedside. They shared a few stories about pt life, he is from [place], of [place] and [place] Heritage. wonders if this may have been contributing to his complex medical issues. She has counseled her children to get tested, dtr asked if I had any specific reccs for this and I suggested she look online to see if there are Bullous pemphigoid derms in the area and establish care with them/likely surveillance and monitoring. They are worried about his pain and the gurgling. We spoke about secretion mgt at end of life, will add trans derm scop since Robinul IV is not an option. For his uncontrolled pain and resp distress will add scheduled roxanol 15mg PO q6h and for agitation/restlessness will add scheduled Haldol Intensol 1mg PO q8h, and can give q4h prn for breakthrough agitation, delirium, restlessness. (2) Encounter for end of life care: Plan: Meds modified as noted above Patient has uncontrolled pain, dyspnea and agitation Wound changes remains extremely painful Spoke with and dtr today at length about how his skin is another orgran system and for him, this is the major system failing and causing so much pain/distress. We reviewed secretion mgt protocol. mentioned meal trays are still coming though pt has not taken PO< she would like them stopped and notes if she feels pt wants anything she will ask nursing for help from pantry. Orders d/c. (3) Bullous pemphigoid: (4) Bacteremia due to Staphylococcus: (5) Brain mass: (6) Pancytopenia: Plan Pain and symptom mgt orders modified as noted above Trans derm scop added Meal trays stopped. Updated nursing/appreciate the excellence of ongoing high quality nursing care for this very complex patient. We will limit wound care to change dressings as needed/if wet. Reviewed meds with pharmacy/appreciate their assistance very much for this complex case. Admission and Anticipated Discharge Date Admission Date: May 15, 2022 Subjective On comfort care, less responsive but seems a little more comfortable than Saturday and dtr at bedside, have been noting increased pain, grimacing, moaning. and gurgling IV Sites are lost, he has no good peripheral access skin breakdown continues, more sores in mouth with bleeding crying out, moaning with any wound care, turning and positioning family struggling, seeing him suffer is tough for them as well Review of Systems Review of Systems: All systems reviewed & are unremarkable except as noted in Subjective and Unobtainable due to cognitive status Physical Exam Physical Exam: Largely deferred due to pt comfort. Appears generally uncomfortable and in distress: resting in bed, +gurgling, +grimacing, moaning, furrowed brow oral cavity bloody with lesions noted color pale increased resp effort with use of accessory muscles, there are some apneas to 5- 7 sec noted Results & Data ([facility]) Vital Signs (Past 12 Hours) Vital Signs O2 Del Method 05/21/22 08:07 Room Air Laboratory Results no new data, pt on comfort care PG Care Time/CCT Total # of Minutes Spent Total Time Spent: 65 Total Time Spent with Patient: Total time spent is greater than 50% in coordination of care (as documented) at patient's floor/unit and/or counseling patient: Coding [place] [address] SUB INP/OBS CARE 3/50MIN Patient Type Established History Comprehensive Exam Expanded Problem Focused Medical Decision Making High Complexity Diagnoses Palliative care by specialist Z51.5 Encounter for end of life care Z51.5 Bullous pemphigoid L12.0 Bacteremia due to Staphylococcus R78.81; B95.8 Brain mass G93.89 Pancytopenia D61.818
[2022-05-21] MEDS ORDERED: HALOPERIDOL ORAL SOLN 2 MG/ML PO PRN (15:06)
[2022-05-21] MEDS ORDERED: SCOPOLAMINE 1 MG TDSY TD SCH (15:15)
[2022-05-21] MEDS: HALOPERIDOL ORAL SOLN 2 MG/ML PO SCH ×2 (15:52→23:49)
[2022-05-21] MEDS: MoRPHine SULFATE 10 MG/0.5 ML UDP PO SCH ×2 (15:57→20:04)
[2022-05-21] MEDS: CHECK SCOPOLAMINE PATCH PLACEMENT SCH (16:36)
--- NOTE | 2022-05-21 22:03 | Hospitalist Progress Note ---
Date of Service May 21, 2022 Assessment & Plan (1) Neutropenic fever: Plan: -Acute serious risk- meeting sepsis criteria on presentation now resolved -consider skin source with bullous pemphigoid, preliminary is Gr + chains TTe completed:, ID evaluation completed throat pain, out pt CT neck Mild thickening of posterior pharyngeal rawls at level of piriform sinuses symptomatic treatment patient having nosebleeds which was controlled with Afrin given pancytopenia start antivirals and antifungals -cultures final: showing staph aureus. -Neutropenic precautions -Empiric coverage with broad spectrum antibiotics- vancomycin and cefepime acyclovir and diflucan Bullous pemphigoid, new diagnosis ,methotrexate held, on stress steroids with lower bp on presentation pancytopenia due to chemotherapy, anemia likely secondary to chronic disease, will monitor on 05/17 will check iron studies and folic acid and B12. Levels do not suggest iron def. anemia, folic acid def, or B12 def. Bullous pemphigoid carries a poor prognosis, his building pressure washer relayed to me that majority pass away within a month of the diagnosis. Patient seen in AM, family not in room. Palliative care consult however completed later in day. Patient will be transitioned to comfort measures only. Will transfer patient to medical. Discussed with palliative care. Remains on comfort measures on 05/19 switched meds to PO as patient no longer has an IV site. Patient remains on comfort measures on 05/21 (2) CHF (congestive heart failure): Plan: -Chronic and stable diastolic heart failure Last echocardiogram 08/30 with EF 70- 75% acute elevation of troponin, is low level but likley demand ischemia in setting of illness Continue metoprolol, simvastatin-Holding aspirin for thrombocytopenia Questionable swallowing status we are holding his statin aspirin converting metoprolol to IV (3) Brain mass: Plan: -MRI [facility] 03/2022- extra axial mass of L parietal lobe with dural thickening from frontal lobe to occipital lobe on left, 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 This is pathologically indeterminate, and neoplasm is the diagnosis of exclusion. Our Quality Control Coordinator is out of the [place] but took a phone call 05/16/2022. 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 Apically does not bleed significantly but he is pancytopenic which may institute that. Subsequently we are looking to try to see if we can get a biopsy of this at outside facility. I phoned both [facility] and [facility]. I was initially denied at [facility] for possible transfer [facility] was denied. For now, Brain mass does not appear to be growing, as radiologist compared both images on 05/17 ([place] images were sent here electronically). However patient is now being transitioned to comfort measures only. below was plan prior to comofrt measures. (4) DM (diabetes mellitus): Plan: chronic and stable , -A1C 7.4% in 05/03 -Initiate basal insulin + SSI once pt tolerating diet to the n.p.o. status we will reduce basal insulin (5) Stage 4 chronic kidney disease due to benign hypertension: Plan: -Chronic and stable baseline Cr appears around 2 -Stable, trend BMP (6) Anemia: Plan: Chronic unclear if stable-Hgb 9.7, baseline appears around 10-11 anemia of chronic disease -Possibly of acute blood loss anemia from normal coastal bleeding. Patient transfused 2 units packed red blood cells on protein pump inhibitor (7) Ascites due to alcoholic cirrhosis: Plan: -Regular ETOH consumption ongoing, pt not interested in cessation -Continue spironolactone -Continue cefepime/vancomycin at present (8) Depression: Plan: -Chronic and stable continue mirtazapine (9) GERD without esophagitis: Plan: -Chronic and stable patient with swallowing difficulties or pain with swallowing pantoprazole 40 mg IV daily in place of home PO pantoprazole (10) Hypothyroidism (acquired): (11) BPH (benign prostatic hyperplasia): Plan: chronic stable no LUTS (12) Bullous pemphigoid: Plan: receiving stress steroids. Plan Code status: Full DVT ppx: SCDs, defer chemoprophylaxis with thrombocytopenia Admission and Anticipated Discharge Date Admission Date: May 15, 2022 Subjective Patient is comfortably resting. Review of Systems Review of Systems: All systems reviewed & are unremarkable except as noted in HPI & below Physical Exam Physical Exam: pt is chronically ill resting comfortably PG Care Time/CCT Total # of Minutes Spent Total Time Spent with Patient: Total time spent is greater than 50% in coordination of care (as documented) at patient's floor/unit and/or counseling patient: Coding Level of Care Code 92167 SUB INP/OBS CARE 04/04MIN Diagnoses Neutropenic fever D70.9; R50.81 CHF (congestive heart failure) I50.9 Brain mass G93.89 DM (diabetes mellitus) E11.9 Stage 4 chronic kidney disease due to benign hypertension I12.9; N18.4 Anemia D64.9 Ascites due to alcoholic cirrhosis K70.31 Depression F32.9 GERD without esophagitis K21.9 Hypothyroidism (acquired) E03.9 BPH (benign prostatic hyperplasia) N40.0 Bullous pemphigoid L12.0
[2022-05-22] MEDS: CHECK SCOPOLAMINE PATCH PLACEMENT SCH ×2 (00:22→09:43)
[2022-05-22] MEDS: MoRPHine SULFATE 10 MG/0.5 ML UDP PO SCH ×2 (03:22→09:44)
[2022-05-22] MEDS: HALOPERIDOL ORAL SOLN 2 MG/ML PO SCH (06:37)
[2022-05-22] MEDS: MoRPHine SULFATE 10 MG/0.5 ML UDP PO PRN (08:59)
[2022-05-22] MEDS: FIRST - Mouthwash BLM 119 ML PO SCH (09:43)
[2022-05-22] MEDS: ATROPINE SULFATE 1% OP SOLN 5 ML BTL PO PRN (09:45)
--- NOTE | 2022-05-22 12:28 | Discharge Summary ---
Date of Service May 22, 2022 Admission HPI Per Admitting Provider 77 yo M with PMH bullous pemphigoid, alcoholic cirrhosis, anemia, depression, GERD, hypothyroidism, CKD4, CAD, HTN, HLD, HFpEF presenting with fever. Pt was recently hospitalized at [facility] 05/02 to 05/05 for hyponatremia, poor oral intake, MALGORZATA and bullous pemphigoid flare. He was treated with Solumedrol transitioned to prednisone. He was started on methotrexate after discharge by dermatology. After discharge, pt continued to feel poorly and oral intake did not recover. He has had throat pain which has greatly limited ability to eat/drink. Pt did see PCP on 05/11 and advised to continue current treatment with oral prednisone, methotrexate weekly and magic mouthwash for his throat pain. His symptoms persisted until he developed fever today at home and was brought to ED by . Pt arrived to ER febrile 38.8 C and tachycardic to 140s. Normotensive. ED labs significant for WBC 0.46, Hgb 9.7, Plt 110, Na 130, Cr 1.71, lactate 1.5, TB 1.2, troponin 22. CBC, CMP, UA otherwise unremarkable. CXR with some b/l opaciti es but no focal consolidations. Pt given cefepime, Tylenol 1000 mg IV, NSS bolus 1.5L and started on mIVF in ER. On my evaluation, he is largely unable to engage in interview given his difficulty hearing. at bedside states he is primarily suffering from throat pain for the last several days with little to no oral intake. Additionally, he has not had a BM in at least 4+ days. Discharge Exam pt is chronically ill resting comfortably Discharge Data Allergies Allergy/AdvReac Type Severity Reaction Status Date / Time No Known Allergies Allergy Unverified 05/11/22 10:58 Consultations 05/15/22 02:15 ED Decision to Admit Stat 05/17/22 11:47 Consult Infectious Diseases Routine 05/17/22 22:04 Consult Palliative Care Routine 05/18/22 08:27 Consult Hematology Routine Ordered Studies 05/15/22 07:59 MR brain wo/w con Routine Hospital Course (1) Neutropenic fever: -Acute serious risk- meeting sepsis criteria on presentation now resolved -consider skin source with bullous pemphigoid, preliminary is Gr + chains TTe completed:, ID evaluation completed throat pain, out pt CT neck Mild thickening of posterior pharyngeal rawls at level of piriform sinuses symptomatic treatment patient having nosebleeds which was controlled with Afrin given pancytopenia start antivirals and antifungals -cultures final: showing staph aureus. -Neutropenic precautions -Empiric coverage with broad spectrum antibiotics- vancomycin and cefepime acycl ovir and diflucan Bullous pemphigoid, new diagnosis ,methotrexate held, on stress steroids with lower bp on presentation pancytopenia due to chemotherapy, anemia likely secondary to chronic disease, will monitor on 05/17 will check iron studies and folic acid and B12. Levels do not suggest iron def. anemia, folic acid def, or B12 def. Bullous pemphigoid carries a poor prognosis, his corporate administrator relayed to me that majority pass away within a month of the diagnosis. Patient seen in AM, family not in room. Palliative care consult however completed later in day. Patient will be transitioned to comfort measures only. Will transfer patient to medical. Discussed with palliative care. Remains on comfort measures on 05/19 switched meds to PO as patient no longer has an IV site. 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 This is pathologically indeterminate, and neoplasm is the diagnosis of exclusion. Our Coal Handling Supervisor [place] but took a phone call 05/16/2022. 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 Apically does not bleed significantly but he is pancytopenic which may institute that. Subsequently we are looking to try to see if we can get a biopsy of this at outside facility. I phoned both [facility] and [facility]. I was initially denied at [facility] for possible transfer [facility] was denied. For now, Brain mass does not appear to be growing, as radiologist compared both images on 05/17 ([place] images were sent here electronically). However patient is now being transitioned to comfort measures only. below was plan prior to comofrt measures. (4) DM (diabetes mellitus): chronic and stable , -A1C 7.4% in 05/03 -Initiate basal insulin + SSI once pt tolerating diet to the n.p.o. status we will reduce basal insulin (5) Stage 4 chronic kidney disease due to benign hypertension: -Chronic and stable baseline Cr appears around 2 -Stable, trend BMP (6) Anemia: Chronic unclear if stable-Hgb 9.7, baseline appears around 10-11 anemia of chronic disease -Possibly of acute blood loss anemia from normal coastal bleeding. Patient transfused 2 units packed red blood cells on protein pump inhibitor (7) Ascites due to alcoholic cirrhosis: -Regular ETOH consumption ongoing, pt not interested in cessation -Continue spironolactone -Continue cefepime/vancomycin at present (8) Depression: -Chronic and stable continue mirtazapine (9) GERD without esophagitis: -Chronic and stable patient with swallowing difficulties or pain with swallowing pantoprazole 40 [address] IV daily in place of home PO pantoprazole (10) Hypothyroidism (acquired): (11) BPH (benign prostatic hyperplasia): chronic stable no LUTS (12) Bullous pemphigoid: receiving stress steroids. Plan Code status: Full DVT ppx: SCDs, defer chemoprophylaxis with thrombocytopenia Discharge Plan Discharge Items Reason For Visit: NEUTROPENIC FEVER Follow-up/Referrals: Crystal Camejo DO [Primary Care Provider] - Stand-Alone Forms: My [facility] Medications and DC Order Prescriptions: No Action finasteride 5 mg tablet 5 mg PO DAILY Qty: 90 3RF mirtazapine 15 mg tablet 15 mg PO DAILY Qty: 30 2RF (DME) OneTouch Ultra Blue Test Strip strip See Dose Instructions .ROUTE .MEDSUPPLY Qty: 10 0RF Dose Instruction: As directed Rx Instructions: As directed (DME) blood-glucose meter [OneTouch Ultra2 Meter] kit See Dose Instructions .ROUTE .MEDSUPPLY Qty: 1 0RF Dose Instruction: As directed Rx Instructions: As directed (DME) lancets [OneTouch UltraSoft Lancets] [facility] [place] See Dose Instructions .ROUTE .MEDSUPPLY Qty: 50 0RF Dose Instruction: As directed Rx Instructions: As directed psyllium husk [Daily Fiber] 0.52 gram capsule 0.52 g PO DAILY Qty: 30 0RF levothyroxine 75 mcg tablet 75 mcg PO DAILY Qty: 30 2RF triamcinolone acetonide 0.1 % cream 1 applic topical DAILY PRN (Reason: itching) Qty: 80 1RF guaifenesin 400 mg tablet 400 mg PO BID PRN (Reason: cough) Qty: 30 0RF betamethasone dipropionate 0.05 % cream 1 applic topical BID PRN (Reason: skin irritation) Qty: 45 3RF levocetirizine 5 mg tablet 5 mg PO DAILY Qty: 90 1RF (DME) Unna Boot Zinc-Calamine 3 %-3 %- 4" X 10 yard bandage See Rx Instructions .Route Qty: 2 11RF Rx Instructions: As directed pantoprazole 40 mg tablet,delayed release (DR/EC) 40 mg PO BID Qty: 180 1RF Tradjenta 5 mg tablet 5 mg PO DAILY Qty: 90 1RF tamsulosin 0.4 mg capsule 0.4 mg PO DAILY Qty: 30 2RF cyclobenzaprine 10 mg tablet 10 mg PO HS PRN (Reason: muscle spasm) magnesium oxide 420 mg tablet 420 mg PO DAILY metoprolol tartrate 25 mg tablet 25 mg PO DAILY simvastatin 10 mg tablet 5 mg PO QPM nystatin 100,000 unit/gram ointment 1 applic topical BID Qty: 30 2RF aspirin [Meseret Low Dose Aspirin] 81 mg tablet,delayed release (DR/EC) 81 mg PO DAILY spironolactone 25 mg tablet 25 mg PO DAILY Qty: 90 2RF methotrexate sodium 2.5 mg tablet 12.5 mg PO WK folic acid 1 mg tablet 1 mg PO DAILY mecobalamin (vitamin B12) [B12 Active] 1,000 mcg Tablet,Chewable 0 mcg PO DAILY Admission Data Admit Date/Time: 05/15/22 05:09 Attending Provider: Justen Everett Admit Provider: Lynette Leija Primary Care Provider: Crystal Camejo Other Providers: Terry Fleming [facility] ; [facility] [place] ; Obie Casanova ; Janneth Post ; Virginia Dunaway ; Rhona Cantu ; Dada Berman Coding Diagnoses Neutropenic fever D70.9; R50.81 CHF (congestive heart failure) I50.9 Brain mass G93.89 DM (diabetes mellitus) E11.9 Stage 4 chronic kidney disease due to benign hypertension I12.9; N18.4 Anemia D64.9 Ascites due to alcoholic cirrhosis K70.31 Depression F32.9 GERD without esophagitis K21.9 Hypothyroidism (acquired) E03.9 BPH (benign prostatic hyperplasia) N40.0 Bullous pemphigoid L12.0
--- NOTE | 2022-05-23 11:59 | Death Pronouncement Note ---
Date of Service May 23, 2022 Pronouncement Note Admission Date May 15, 2022 Additional Data Attending physician: Justen Everett Coding Diagnoses
== END 2022-05-22 13:40 | disposition expired | DRG 871 ==
LOC: ED 00:10 → 2E 05:09 → SUATTDRO 05:09 → 2E 05:50 → 3E 05-18 16:52
DX: A41.01 Sepsis due to Methicillin susceptible Staphylococcus aureus; L12.0 Bullous pemphigoid; I50.32 Chronic diastolic (congestive) heart failure; D63.8 Anemia in other chronic diseases classified elsewhere; K70.31 Alcoholic cirrhosis of liver with ascites; I13.0 Hypertensive heart and chronic kidney disease with heart failure and stage 1 through stage 4 chronic kidney disease, or unspecified chronic kidney disease; I42.9 Cardiomyopathy, unspecified; E11.9 Type 2 diabetes mellitus without complications; C71.9 Malignant neoplasm of brain, unspecified; I24.8 Other forms of acute ischemic heart disease; Z51.5 Encounter for palliative care; E78.5 Hyperlipidemia, unspecified; Z79.890 Hormone replacement therapy; E03.9 Hypothyroidism, unspecified; Z66 Do not resuscitate; R22.0 Localized swelling, mass and lump, head; D70.9 Neutropenia, unspecified; K59.00 Constipation, unspecified; G93.9 Disorder of brain, unspecified; D62 Acute posthemorrhagic anemia; Z79.82 Long term (current) use of aspirin; D61.810 Antineoplastic chemotherapy induced pancytopenia; N18.4 Chronic kidney disease, stage 4 (severe); N17.9 Acute kidney failure, unspecified; I25.10 Atherosclerotic heart disease of native coronary artery without angina pectoris; E86.0 Dehydration; R50.81 Fever presenting with conditions classified elsewhere